=== PATIENT | male | born 1945 | race Caucasian/White ===

== ENCOUNTER → 2018-04-11 11:28 | Outpatient (CLI) | payer MEDICARE, OTHER, SELFPAY ==
--- NOTE | 2018-04-11 11:30 | DI.RAD.S_ITS ---
PROCEDURE: XR CHEST 2V INDICATIONS: Chest wall pain TECHNIQUE: 2 views of the chest were acquired. COMPARISON: [facility], , XR CHEST 2V, 12/01/2017, 16:19. [facility], , CHEST 2 VIEW, 12/27/2016, 8:42. [facility], CR, CHEST 2 VIEW, 12/15/2015, 10:49. FINDINGS: Surgical changes and devices: None. Lungs and pleura: No pleural effusions or pneumothorax. Lungs are clear. Mediastinum: Mediastinal contours are normal. Heart size is normal. The descending thoracic aorta is torturous but does not appear aneurysmal Bones and chest wall: No suspicious bony abnormalities. Soft tissues appear unremarkable. IMPRESSION: Chronic mild interstitial prominence within the lung parenchyma, no source of chest wall pain is found. Dictated by: Johan Crotes M.D. on 04/11/2018 at 12:13 Approved by: Johan Cortes M.D. on 04/11/2018 at 12:13
== END ==
PROVIDERS: Visit Provider Internal Medicine
DX: R07.89 Other chest pain (principal)
CPT/HCPCS: 71046

== ENCOUNTER → 2018-04-17 12:37 | Outpatient (CLI) | payer MEDICARE, OTHER, SELFPAY ==
--- NOTE | 2018-04-17 | DI.US.S_ITS ---
PROCEDURE: US ABDOMEN COMPLETE INDICATIONS: KIDNEY CANCER TECHNIQUE: Real-time scanning was performed of the abdominal and retroperitoneal organs, with image documentation. COMPARISON: [facility], CT, IVP (ABD & PEL WWO CONTRAST), 03/16/2017, 12:29. [facility], US, ABDOMEN COMPLETE, 12/27/2016, 9:02. FINDINGS: Liver: Liver is normal in size and homogeneous in echotexture. 2 cysts present within the left lobe of the liver unchanged largest measuring 2.8 cm. Smaller right hepatic lobe clusters is present measuring 1.4 cm. Gallbladder: No gallstones identified. Normal gallbladder wall. No pericholecystic fluid. Negative sonographic Quick sign. Biliary ducts: Intrahepatic bile ducts are non-dilated. Extrahepatic bile duct not well-seen. Pancreas: Visualized portions of the pancreas are sonographically normal. Hypoechoic mass in the pancreatic head measuring 12 mm. Doppler assessment demonstrates no vascularity. Spleen: Spleen is normal in size and homogeneous in echotexture. Kidneys: Right kidney surgically absent. Normal left kidney measuring 12.3 cm. Aorta: Visualized aorta is normal in caliber at less than 3 cm. Iliacs: Proximal common iliac arteries are normal in caliber at less than 2.5 cm. IVC: Intrahepatic inferior vena cava is patent. Miscellaneous: No free abdominal fluid. IMPRESSION: 1. Hepatic cysts redemonstrated. 2. Hypoechoic rounded focus involving the head of the pancreas which may represent a small cyst but is too small to further characterize. Recommend pancreatic protocol CT for further assessment and characterization. Dictated by: Edmundo CISNEROS Interpreted: John Michelle MD on 04/17/2018 at 16:14 Approved by: John Michelle M.D. on 04/17/2018 at 17:28
[2018-04-17 13:30] LABS: Add Manual Diff / Slide Review NO; Hematocrit 46.5 % (41-53); Hemoglobin 15.4 g/dL (13.5-17.5); Lymphocytes Percent Auto 22.6 % (25-40); Mean Corpuscular HGB Conc 33.2 % (30-36); Mean Corpuscular Hemoglobin 30.5 PG (26-34); Mean Corpuscular Volume 92.1 fL (80-100); Monocytes Percent Auto 8.8 % (3-14); Neutrophils Absolute Auto 3000 /uL (3000-5900); Neutrophils Percent Auto 63.6 % (50-75); Platelet Count 102 X10^3/uL (150-400); Red Blood Cell Count 5.05 X10^6/uL (4.5-5.9); Red Cell Distribution Width 13.6 % (11.6-14.8); White Blood Cell Count 4.7 X10^3/uL (4.5-11.0)
[2018-04-17 14:03] LABS: Alanine Aminotransferase 64 IU/L (21-72); Albumin 3.8 g/dL (3.5-5.0); Albumin Globulin Ratio 1.4 (1.0-2.8); Alkaline Phosphatase 74 U/L (38-126); Aspartate Aminotransferase 41 IU/L (17-59); BUN Creatinine Ratio 13.3 (6-22); Blood Urea Nitrogen 20 mg/dL (9-20); Calcium 9.2 mg/dL (8.4-10.2); Carbon Dioxide 31 mmol/L (22-32); Chloride 105 mmol/L (98-107); Estimated Glomerular Filt Rate 46.3 mL/min (>60); Globulin 2.7 g/dL (1.7-4.1); Glucose 89 mg/dL (80-110); HEMOLYSIS 16 (0-50); Sodium 143 mmol/L (137-145); Total Protein 6.5 g/dL (6.3-8.2)
== END ==
PROVIDERS: PCP Family Medicine; Visit Provider Urology
DX: C64.9 Malignant neoplasm of unspecified kidney, except renal pelvis (principal); K76.89 Other specified diseases of liver
CPT/HCPCS: 36415; 76700; 80053; 84153; 85025

== ENCOUNTER → 2018-05-05 08:46 | Outpatient (CLI) | payer MEDICARE, OTHER, SELFPAY ==
[2018-05-05 10:17] LABS: Blood Urea Nitrogen 24 mg/dL (9-20); Estimated Glomerular Filt Rate 42.9 mL/min (>60)
== END ==
PROVIDERS: PCP Internal Medicine; Visit Provider Internal Medicine
DX: Z01.812 Encounter for preprocedural laboratory examination (principal)
CPT/HCPCS: 36415; 82565; 84520

== ENCOUNTER → 2018-05-09 09:10 | Outpatient (CLI) | payer MEDICARE, OTHER, SELFPAY ==
--- NOTE | 2018-05-09 09:25 | DI.CT.S_ITS ---
PROCEDURE: CT ABDOMEN WO/W CON INDICATIONS: pancreatic mass TECHNIQUE: Noncontrast 3 mm thick sections acquired through the pancreas. After the administration of intravenous contrast, 3 mm thick pancreatic-phase images acquired from the diaphragm to the iliac crests. 3 mm thick coronal and sagittal reformats were performed. For radiation dose reduction, the following was used: automated exposure control, adjustment of mA and/or kV according to patient size. COMPARISON: [facility], US, US ABDOMEN COMPLETE, 04/17/2018, 13:35. FINDINGS: Image quality: Excellent. Lung bases: Lung bases are clear. Heart size is normal. Pancreas: The pancreatic duct is not distended. At the pancreatic head there is an ovoid cystic structure which has maximal AP and transverse dimensions of 9 x 8 mm, with an internal radiodensity of 15 Hounsfield units (just above water radiodensity). The remainder of the pancreatic parenchyma appears normal. Other solid organs: Liver is normal in size and enhancement. Scattered water density hepatic cysts are seen. Gallbladder appears partially contracted. Biliary system is non dilated. Spleen is normal in size and enhancement. No adrenal nodules. Kidneys are normal in size and enhancement, without hydronephrosis. Peritoneum and bowel: Unenhanced bowel loops demonstrate normal wall thickness and caliber. No free fluid or air. Nodes and vessels: No retroperitoneal or mesenteric adenopathy by size criteria. Aorta and inferior vena cava are normal in size. Bones: No suspicious bony lesions. No vertebral body compression fractures. Miscellaneous: No ventral hernias. IMPRESSION: At the anterior margin of the pancreatic head near its anatomic junction with the pancreatic neck there is a ovoid 8 x 9 mm hypodensity that measures just above water in radiodensity. 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 It can be easily seen by ultrasound and therefore followed by ultrasound in 6 months, and at 12 month intervals thereafter to assist in establishing the presence or absence of stability of appearance over time. Dictated by: Johan Cortes M.D. on 05/09/2018 at 10:44 Approved by: Johan Cortes M.D. on 05/09/2018 at 11:05
== END ==
PROVIDERS: PCP Internal Medicine; Visit Provider Internal Medicine
DX: K86.9 Disease of pancreas, unspecified (principal)
CPT/HCPCS: 74170; Q9967

== ENCOUNTER → 2018-05-24 14:24 | Outpatient (CLI) | payer MEDICARE, OTHER, SELFPAY ==
[2018-05-24 16:00] LABS: Add Manual Diff / Slide Review NO; Basophils Percent Auto 1.4 % (0-2); Eosinophils Percent Auto 3.6 % (2-4); Hematocrit 45.3 % (41-53); Hemoglobin 15.1 g/dL (13.5-17.5); Lymphocytes Percent Auto 22.4 % (25-40); Mean Corpuscular HGB Conc 33.3 % (30-36); Mean Corpuscular Hemoglobin 30.4 PG (26-34); Mean Corpuscular Volume 91.3 fL (80-100); Monocytes Percent Auto 10.6 % (3-14); Neutrophils Absolute Auto 3100 /uL (3000-5900); Platelet Count 108 X10^3/uL (150-400); Red Blood Cell Count 4.96 X10^6/uL (4.5-5.9); Red Cell Distribution Width 13.3 % (11.6-14.8)
[2018-05-24 16:21] LABS: BUN Creatinine Ratio 18.6 (6-22); Blood Urea Nitrogen 26 mg/dL (9-20); Calcium 8.8 mg/dL (8.4-10.2); Carbon Dioxide 28 mmol/L (22-32); Chloride 105 mmol/L (98-107); Estimated Glomerular Filt Rate 50.1 mL/min (>60); Glucose 80 mg/dL (80-110); HEMOLYSIS < 15 (0-50); Potassium 4.1 mmol/L (3.4-5.1); Sodium 145 mmol/L (137-145)
[2018-05-24 16:52] LABS: Carcinoembryonic Antigen 2.2 ng/mL (0.1-3.0)
[2018-05-26 15:55] LABS: Cancer (Carbohydrate) Ag 19-9 26 U/mL (< 34)
== END ==
PROVIDERS: PCP Internal Medicine; Visit Provider Urology
DX: Z01.818 Encounter for other preprocedural examination (principal); D13.6 Benign neoplasm of pancreas
CPT/HCPCS: 36415; 80048; 82378; 85025; 86301; 93005

== ENCOUNTER → 2018-05-24 14:55 | Outpatient (CLI) | payer MEDICARE, OTHER, SELFPAY | PROVIDERS: PCP Internal Medicine; Visit Provider Internal Medicine | DX: Z01.818 Encounter for other preprocedural examination (principal) ==

== ENCOUNTER → 2018-08-29 07:15 | Outpatient (CLI) | payer MEDICARE, OTHER, SELFPAY ==
[2018-08-29 09:23] LABS: Alanine Aminotransferase 44 IU/L (21-72); Albumin Globulin Ratio 1.4 (1.0-2.8); Alkaline Phosphatase 69 U/L (38-126); Aspartate Aminotransferase 29 IU/L (17-59); BUN Creatinine Ratio 14.7 (6-22); Bilirubin Total 1.2 mg/dL (0.2-1.3); Blood Urea Nitrogen 25 mg/dL (9-20); Calcium 9.3 mg/dL (8.4-10.2); Carbon Dioxide 30 mmol/L (22-32); Chloride 103 mmol/L (98-107); Cholesterol 191 mg/dL (140-199); Estimated Glomerular Filt Rate 39.9 mL/min (>60); Globulin 2.8 g/dL (1.7-4.1); Glucose 84 mg/dL (80-110); HDL Cholesterol 59 mg/dL (40-60); HEMOLYSIS < 15 (0-50); LDL Cholesterol Calculated 121 mg/dL (<100); Potassium 4.6 mmol/L (3.4-5.1); Sodium 140 mmol/L (137-145); Total Protein 6.8 g/dL (6.3-8.2); Triglycerides 55 mg/dL (35-150)
[2018-08-31 20:30] LABS: Cancer (Carbohydrate) Ag 19-9 43 U/mL (< 34)
== END ==
PROVIDERS: PCP Internal Medicine; Visit Provider Internal Medicine
DX: C64.9 Malignant neoplasm of unspecified kidney, except renal pelvis (principal); D13.6 Benign neoplasm of pancreas; G47.33 Obstructive sleep apnea (adult) (pediatric); I10 Essential (primary) hypertension; R97.20 Elevated prostate specific antigen [PSA]
CPT/HCPCS: 36415; 80053; 80061; 84153; 86301

== ENCOUNTER → 2018-09-20 08:44 | Outpatient (CLI) | payer MEDICARE, OTHER, SELFPAY ==
--- NOTE | 2018-09-20 08:46 | DI.US.S_ITS ---
PROCEDURE: US ABDOMEN COMPLETE INDICATIONS: papillary mucinous adenoma TECHNIQUE: Real-time scanning was performed of the abdominal and retroperitoneal organs, with image documentation. COMPARISON: [facility], CT, CT ABDOMEN WO/W CON, 05/09/2018, 9:32. [facility], US, US ABDOMEN COMPLETE, 04/17/2018, 13:35. FINDINGS: Liver: The liver is normal in size. There are multiple cystic foci identified within the left and right lobe. The anterosuperior left lobe focus measures 14 x 11 x 14 mm compared to 13 x 9 x 16 mm. Left inferior lobe focus measures 27 x 20 x 21 mm compared to 23 x 20 x 28 mm. The right anterior lobe focus measures 12 x 11 x 9 mm compared to 12 t by 14 mm. The right mid lobe focus measures 13 x 10 x 10 mm, not visualized on prior exam. Gallbladder: Gallbladder is unremarkable. Wall thickness is within normal limits measuring 2.0 cm. Biliary ducts: Intrahepatic bile ducts are non-dilated. Extrahepatic bile duct caliber measures 5.9 mm. Normal is 6-7 mm or less in diameter, or 10 mm or less post-cholecystectomy. Pancreas: Visualized portions of the pancreas demonstrate an unchanged cystic-appearing focus within the pancreatic head measuring 8 x 5 x 8 mm compared to 12 x 8 x 11 mm. Spleen: Spleen is normal in size and homogeneous in echotexture. Kidneys: Kidneys are normal in size and echotexture. Right kidney has been removed. The left kidney measures 11.9 cm long. No hydronephrosis or nephrolithiasis. No solid masses. Aorta: Visualized aorta is normal in caliber at less than 3 cm. Iliacs: Proximal common iliac arteries are normal in caliber at less than 2.5 cm. IVC: Intrahepatic inferior vena cava is patent. Miscellaneous: No free abdominal fluid. IMPRESSION: 1. Multiple cystic foci within the liver with the inferior left focus demonstrating minimal interval increase in size. In addition, a new right lobe focus is identified. These appear most suggestive of simple cysts. 2. Cystic focus within the pancreatic head minimally decreased in size compared to prior exam. Dictated by: Yajaira Lu M.D. on 09/20/2018 at 12:11 Approved by: Yajaira Lu M.D. on 09/20/2018 at 12:16
== END ==
PROVIDERS: PCP Internal Medicine; Visit Provider Internal Medicine
DX: D13.6 Benign neoplasm of pancreas (principal)
CPT/HCPCS: 76700

== ENCOUNTER → 2018-09-27 11:53 | Outpatient (CLI) | payer MEDICARE, OTHER, SELFPAY ==
[2018-09-27 12:44] LABS: Appearance Urine UA CLEAR; Bilirubin Urine UA NEGATIVE (NEGATIVE); Color Urine UA YELLOW; Glucose Urine UA NEGATIVE (Negative); Ketones Urine UA NEGATIVE (NEGATIVE); Leukocyte Esterase Urine UA 1+ (NEGATIVE); Nitrite Urine UA NEGATIVE (Negative); Occult Blood Urine UA 1+ (Negative); Protein Urine UA NEGATIVE (Negative); Urobilinogen Urine UA 0.2 E.U./dL (0.2)
[2018-09-27 13:03] LABS: RBC Urine 1-5/HPF (0-5/HPF)
[2018-09-27 13:04] LABS: Bacteria Urine Occasional (0-1); Culture Indicated Urine Specimen Cultured; Squamous Epithelial Cell Urine 0-1 /HPF; WBC Urine 10-30/HPF (0-5/HPF)
== END ==
PROVIDERS: Family Provider Internal Medicine; PCP Internal Medicine; Visit Provider Urology
DX: N39.0 Urinary tract infection, site not specified (principal)
CPT/HCPCS: 81001; 87086

== ENCOUNTER → 2019-02-02 16:11 | Outpatient (CLI) | payer MEDICARE, OTHER, SELFPAY ==
--- NOTE | 2019-02-02 16:14 | DI.US.S_ITS ---
PROCEDURE: US EXTREMELY NONVASC UPPER RT INDICATIONS: POSS FOREIGN BODY (WOOD) RIGHT MIDDLE FINGER TECHNIQUE: Real-time scanning was performed of the third digit pulse on the right and left with the left finger for comparison, with image documentation. COMPARISON: None. FINDINGS: There is soft tissue swelling right third digit distally over the distal phalanx, in an area of prior splinter injury beneath fingernail. The patient reports having removed most of the splinter but may have left a small fragment. Scanning over this area reveals a very small linear structure measuring approximately 1 mm in diameter and 3 mm in length marked on the imaging to assist in detection and reference to this site. This is virtually at the subcutaneous margin within the third digit soft tissues near the fourth digit. IMPRESSION: A definite foreign body is not seen, no fluid collection is found it would indicate abscess formation but there is any unexplained very small 1 x 3 mm focus of linear echotexture immediately below the skin surface at the third digit as discussed above. A similar structure was not seen at the left third digit which was scanned for normal comparison. Dictated by: Johan Cortes M.D. on 02/02/2019 at 16:56 Approved by: Johan Cortes M.D. on 02/02/2019 at 17:02
== END ==
PROVIDERS: PCP Internal Medicine; Visit Provider Nurse Practitioner Family
DX: M79.5 Residual foreign body in soft tissue (principal)
CPT/HCPCS: 76882

== ENCOUNTER → 2019-03-06 07:04 | Outpatient (CLI) | payer MEDICARE, OTHER, SELFPAY ==
[2019-03-06 07:49] LABS: Add Manual Diff / Slide Review NO; Basophils Absolute Auto 0 /uL (0-100); Basophils Percent Auto 1.1 % (0-2); Eosinophils Absolute Auto 200 /uL (0-450); Hematocrit 45.2 % (41-53); Hemoglobin 15.3 g/dL (13.5-17.5); Lymphocytes Absolute Auto 1200 /uL (1100-4500); Lymphocytes Percent Auto 26.3 % (25-40); Mean Corpuscular HGB Conc 33.9 % (30-36); Mean Corpuscular Hemoglobin 31.1 PG (26-34); Mean Corpuscular Volume 91.9 fL (80-100); Monocytes Absolute Auto 400 /uL (0-900); Monocytes Percent Auto 9.1 % (3-14); Neutrophils Absolute Auto 2600 /uL (1500-7000); Neutrophils Percent Auto 59.5 % (50-75); Platelet Count 107 X10^3/uL (150-400); Red Blood Cell Count 4.92 X10^6/uL (4.5-5.9); White Blood Cell Count 4.5 X10^3/uL (4.5-11.0)
[2019-03-06 08:09] LABS: HEMOLYSIS < 15 (0-50)
[2019-03-06 08:18] LABS: Alanine Aminotransferase 21 IU/L (21-72); Albumin 3.6 g/dL (3.5-5.0); Albumin Globulin Ratio 1.2 (1.0-2.8); Alkaline Phosphatase 70 U/L (38-126); Aspartate Aminotransferase 24 IU/L (17-59); BUN Creatinine Ratio 15.3 (6-22); Blood Urea Nitrogen 23 mg/dL (9-20); Carbon Dioxide 31 mmol/L (22-32); Chloride 105 mmol/L (98-107); Estimated Glomerular Filt Rate 46.1 mL/min (>60); Globulin 2.9 g/dL (1.7-4.1); Glucose 100 mg/dL (80-110); Potassium 4.3 mmol/L (3.4-5.1); Sodium 140 mmol/L (137-145); Total Protein 6.5 g/dL (6.3-8.2)
[2019-03-06 09:22] LABS: Prostate Specific Antigen 3.36 ng/mL (0.10-4.00)
== END ==
PROVIDERS: Family Provider Urology; PCP Internal Medicine; Visit Provider Internal Medicine
DX: N40.1 Benign prostatic hyperplasia with lower urinary tract symptoms (principal); C64.9 Malignant neoplasm of unspecified kidney, except renal pelvis; D13.6 Benign neoplasm of pancreas; G47.33 Obstructive sleep apnea (adult) (pediatric); I10 Essential (primary) hypertension
CPT/HCPCS: 36415; 80053; 84153; 85025

== ENCOUNTER → 2019-03-20 12:06 | Outpatient (CLI) | payer MEDICARE, OTHER, SELFPAY ==
--- NOTE | 2019-03-20 12:08 | DI.US.S_ITS ---
PROCEDURE: US ABDOMEN LIMITED INDICATIONS: PANCREATIC CYST TECHNIQUE: Real-time focused scanning was performed of the abdomen, with image documentation. COMPARISON: [facility], CT, CT ABDOMEN WO/W YARELY, 05/09/2018, 9:32. FINDINGS: Pancreatic head cyst unchanged measuring 0.9 x 0.8 x 0.9. Pancreas otherwise appears normal. IMPRESSION: Stable appearance of pancreatic head cyst. Dictated by: Edmundo CISNEROS Interpreted: Johan Cortes MD on 03/20/2019 at 13:21 Approved by: Johan Cortes M.D. on 03/20/2019 at 14:24
== END ==
PROVIDERS: Family Provider Urology; PCP Internal Medicine; Visit Provider Internal Medicine
DX: K86.2 Cyst of pancreas (principal); D13.6 Benign neoplasm of pancreas
CPT/HCPCS: 76705

== ENCOUNTER 2019-04-28 03:20 | Emergency (ER) | payer MEDICARE, OTHER, SELFPAY ==
[2019-04-28 03:25] VITALS: BP 145/89; PULSE 64; RESP 15; TEMP 36.9; O2SAT 99; BMI 25.5
--- NOTE | 2019-04-28 03:27 | ED.GENADULT ---
HPI - General Adult General Chief complaint: Skin/Abscess/Foreign Body Stated complaint: dog bite right hand swollen red was his dog Time Seen by Provider: 04/28/19 03:26 Source: patient Mode of arrival: Ambulatory Limitations: no limitations History of Present Illness HPI narrative: 73-year-old male who 2-3 days ago was bitten in his right hand by his dog. He states since that time he has had some redness the outside of his hand. Does not remember when his last tetanus shot was. He states that his dog was up-to-date on all of its immunizations. Related Data Home Medications Medication Instructions Recorded Confirmed tamsulosin 0.4 mg capsule 0.4 mg PO BID #0 cap 02/28/19 02/28/19 Previous Rx's Medication Instructions Recorded cephalexin 500 mg capsule 500 mg PO BID #10 cap 02/28/19 labetalol 100 mg tablet See Rx Instructions .ROUTE 04/02/19 .COMPLEX #90 tablet amoxicillin-pot clavulanate 1 tab PO BID 7 Days #14 tab 04/28/19 [Augmentin] Allergies Allergy/AdvReac Type Severity Reaction Status Date / Time adhesive Allergy Mild REDNESS, Verified 02/28/19 11:02 ITCHING No Known Drug Allergies Allergy Unknown Verified 02/28/19 11:02 [NO KNOWN DRUG ALLERGIES] Raw apples AdvReac Intermediate GI upset Uncoded 02/28/19 11:02 Review of Systems Constitutional Constitutional: Denies fever(s) Musculoskeletal Musculoskeletal: Denies tingling Comments: Pain in the right hand Integumentary/Breasts Comments: Redness and puncture wounds to the right hand Neurologic Neurologic: Denies tingling Hematologic/Lymphatic Hematologic/Lymphatic: Denies easy bleeding and Denies easy bruising [facility] Medical History Acne (Resolved 1961) Bladder cancer (Resolved 2016) Bladder cancer (Chronic) BPH (benign prostatic hyperplasia) (Chronic) Chicken pox (Resolved) Complete tear of left rotator cuff (Inactive 01/14/16) Essential hypertension (Chronic 07/23/15) Hayfever (Chronic 1963) History of adenomatous polyp of colon (Chronic) Kidney stones (Resolved 2010) Malignant neoplasm of kidney (Chronic 01/12/13) Measles (Resolved) Mumps (Resolved) Obstructive sleep apnea (Chronic 09/07/11) Stage 3 chronic kidney disease (Chronic 01/03/13) Thrombocytopenia (Chronic 07/23/15) Vertigo (Inactive) Social History marital status: number of children: 1 household members: spouse lives independently: Yes caregiver/support person: No housing: house pets and animals: Yes education level: master's degree 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 travel history: over 6 months ago ([place], [place]) 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), reading and other (Gardening, Walk dogs.) Smoking Status: Former smoker Tobacco: How many years used: 10 Smokeless tobacco user: other (Cigarettes) quit status: quit date established (1980) second hand exposure: No alcohol intake: current (Occasionally) substance use type: marijuana Exam Initial Vital Signs Initial Vital Signs: Vital Signs Temperature 98.4 F 04/28/19 03:25 Pulse Rate 64 04/28/19 03:25 Respiratory Rate 15 04/28/19 03:25 Blood Pressure 145/89 H 04/28/19 03:25 Pulse Oximetry 99 04/28/19 03:25 Const General: cooperative, healthy appearing, comfortable and well developed Cardio Pulses: radial pulses present on the right Skin Other: Patient with superficial wounds on the ulnar aspect volar just proximal to the wrist on the right hand. Patient with 2 wounds 1 on the palmar aspect of 1 on the dorsal aspect of the 5th digit. Patient with redness on the dorsum of the right hand ulnar side. Neuro Motor: muscle tone normal throughout Sensory Exam: no sensory deficits noted Extrem Other: Full range of motion of the right hand and all the joints in the 5th digit Psych Appearance: grossly normal and well kempt Course Orders Ordered: ED Orders 04/28/19 03:29 XR hand RT min 3V Stat Discontinued Medications Amoxicillin/Clavulanate Potassium (Augmentin 875-125 Mg) 1 tab PO NOW ONE Stop: 04/28/19 03:31 Last Admin: 04/28/19 03:57 Dose: 1 tab Documented by: MARIO Diphtheria/Tetanus/Acell Pertussis (Adacel) 0.5 ml IM .ONCE ONE Stop: 04/28/19 03:31 Last Admin: 04/28/19 03:57 Dose: 0.5 ml Documented by: MARIO Vital Signs Vital signs: Vital Signs - 8 hr 04/28/19 03:25 Temperature 98.4 F Pulse Rate 64 Respiratory Rate 15 Blood Pressure 145/89 H Pulse Oximetry 99 Medical Decision Making Imaging Data X-ray hand: My impression: No fractures or foreign body seen MDM Narrative Medical decision making narrative: Patient's tetanus was updated. Was given a 1st dose of antibiotics here in the emergency department. Will send home with a prescription for the remainder. Do not feel that he is admitted for IV antibiotics. Feel this is low risk for rabies. Patient given return precautions and follow-up instructions. He expressed understanding and agreement with plan. Discharge Plan Departure Patient Disposition: Home Clinical Impression: Dog bite Qualifiers: Encounter type: initial encounter Qualified Code(s): W54.0XXA - Bitten by dog, initial encounter Instructions: DI for Cellulitis -- Adult, Animal Bites Activity Restrictions/Additional Instructions: It does appear that there is a small infection in your right hand most likely from the bite. You were given your 1st dose of antibiotics here in the emergency department. Take the remainder as directed. Contact your primary provider for a follow-up. Return to the emergency department for any new or worsening symptoms Prescriptions: New amoxicillin-pot clavulanate [Augmentin] 875-125 mg tablet 1 tab PO BID 7 Days Qty: 14 RF: 0 No Action tamsulosin [Flomax] 0.4 mg capsule 0.4 mg PO BID Qty: 0 RF: 0 labetalol 100 mg tablet See Rx Instructions .ROUTE .COMPLEX Qty: 90 RF: 1 cephalexin 500 mg capsule 500 mg PO BID Qty: 10 RF: 0 Referrals: Adebayo Hand MD [Primary Care Provider] -
--- NOTE | 2019-04-28 03:29 | DI.RAD.S_ITS ---
PROCEDURE: XR HAND RT MIN 3V INDICATIONS: dog bite 5th finger, possible foreign body TECHNIQUE: 3 views of the hand(s) acquired. COMPARISON: [facility], [place], XR FINGER(S) RIGHT, 03/08/2019, 8:01. FINDINGS: Bones: No displaced fractures or dislocations are identified. Mild to moderate multifocal degenerative changes of hand are present. Soft tissues: No suspicious soft tissue calcifications. No unexpected radiopaque foreign bodies. IMPRESSION: 1. No displaced fractures. 2. No foreign bodies. Note: The preliminary ED physician interpretation and the final report are concordant. Dictated by: Andrew Molina M.D. on 04/28/2019 at 8:23 Approved by: Andrew Molina M.D. on 04/28/2019 at 8:24
[2019-04-28] MEDS: TET,DIPH,PERTUSS(ACELL),VAC/PF 0.5 ML SYRINGE IM (03:57)
[2019-04-28] MEDS: AMOXICILLIN/CLAV 875/125 MG 1 TAB PO (03:57)
[2019-04-28 04:30] VITALS: BP 136/83; PULSE 64; RESP 16; O2SAT 96
== END 2019-04-28 04:30 | disposition home or self-care (01) ==
PROVIDERS: Emergency Provider Emergency Medicine; Family Provider Urology; PCP Internal Medicine
DX: S61.451A Open bite of right hand, initial encounter (principal); W54.0XXA Bitten by dog, initial encounter; Z23 Encounter for immunization
CPT/HCPCS: 73130; 90471; 99282; 99283; 90715

== ENCOUNTER → 2019-08-15 07:37 | Outpatient (CLI) | payer MEDICARE, OTHER, SELFPAY ==
[2019-08-15 08:43] LABS: Add Manual Diff / Slide Review NO; Basophils Absolute Auto 100 /uL (0-100); Basophils Percent Auto 1.3 % (0-2); Eosinophils Absolute Auto 200 /uL (0-450); Eosinophils Percent Auto 4.2 % (2-4); Hematocrit 44.4 % (41-53); Hemoglobin 15.1 g/dL (13.5-17.5); Lymphocytes Absolute Auto 900 /uL (1100-4500); Lymphocytes Percent Auto 20.1 % (25-40); Mean Corpuscular Hemoglobin 30.8 PG (26-34); Mean Corpuscular Volume 90.8 fL (80-100); Monocytes Absolute Auto 400 /uL (0-900); Monocytes Percent Auto 9.9 % (3-14); Neutrophils Absolute Auto 2800 /uL (1500-7000); Neutrophils Percent Auto 64.5 % (50-75); Platelet Count 106 X10^3/uL (150-400); Red Blood Cell Count 4.89 X10^6/uL (4.5-5.9); Red Cell Distribution Width 13.4 % (11.6-14.8); White Blood Cell Count 4.3 X10^3/uL (4.5-11.0)
[2019-08-15 09:08] LABS: Alanine Aminotransferase 16 IU/L (<50); Albumin 3.7 g/dL (3.5-5.0); Albumin Globulin Ratio 1.2 (1.0-2.8); Alkaline Phosphatase 67 U/L (38-126); Aspartate Aminotransferase 23 IU/L (17-59); BUN Creatinine Ratio 14.7 (6-22); Bilirubin Total 0.9 mg/dL (0.2-1.3); Blood Urea Nitrogen 22 mg/dL (9-20); Carbon Dioxide 32 mmol/L (22-32); Chloride 105 mmol/L (98-107); Glucose 88 mg/dL (80-110); HEMOLYSIS < 15 (0-50); Potassium 4.5 mmol/L (3.4-5.1); Sodium 142 mmol/L (137-145); Total Protein 6.7 g/dL (6.3-8.2)
[2019-08-16 11:31] LABS: Cancer (Carbohydrate) Ag 19-9 37 U/mL (< 34)
== END ==
PROVIDERS: Family Provider Urology; PCP Internal Medicine; Visit Provider Internal Medicine
DX: C64.9 Malignant neoplasm of unspecified kidney, except renal pelvis (principal); D13.6 Benign neoplasm of pancreas; D69.6 Thrombocytopenia, unspecified; I10 Essential (primary) hypertension
CPT/HCPCS: 36415; 80053; 85025; 86301

== ENCOUNTER → 2019-08-17 13:10 | Outpatient (CLI) | payer MEDICARE, OTHER, SELFPAY ==
--- NOTE | 2019-08-17 13:11 | DI.US.S_ITS ---
PROCEDURE: US ABDOMEN COMPLETE INDICATIONS: INTRADUCTAL PAPILLARY MUCINOUS ADENOMA PANCREAS TECHNIQUE: Real-time scanning was performed of the abdominal and retroperitoneal organs, with image documentation. COMPARISON: [facility], CT, CT ABDOMEN WO/W CON, 05/09/2018, 9:32. [facility], US, US ABDOMEN COMPLETE, 04/17/2018, 13:35. [facility], US, US ABDOMEN COMPLETE, 09/20/2018, 9:05. FINDINGS: Liver: Multiple cystic lesions seen within the liver measuring up 1.8 x 1.3 1.6 cm and the left lobe, 2.7 x 2.7 x 2.6 cm and the left lobe, 1.3 x 1.5 x 1.3 cm in the right lobe. Additional smaller right similar-appearing cystic lesions. There are some scattered low level internal echoes. Gallbladder: Unremarkable. No sonographic Quick's sign Biliary ducts: Intrahepatic bile ducts are non-dilated. Extrahepatic bile duct caliber measures 6 mm. Normal is 6-7 mm or less in diameter, or 10 mm or less post-cholecystectomy. Pancreas: Within the body of the pancreas, there is a 9 x 7 x 10 mm cystic lesion. Sonographically this appears stable Spleen: Spleen is normal in size and homogeneous in echotexture. Kidneys: Status post right nephrectomy. Left kidney measures 12.0 cm in length. 4 mm echogenic focus in the inferior pole presumably nonobstructive calculus versus dystrophic calcification. Aorta: Visualized aorta is normal in caliber at less than 3 cm. proximal aorta are not well-visualized Iliacs: Proximal common iliac arteries are normal in caliber at less than 2.5 cm. IVC: Intrahepatic inferior vena cava is patent. Miscellaneous: No free abdominal fluid. IMPRESSION: Redemonstration of multiple presumed hepatic cysts. Nonspecific pancreatic cystic lesion, although grossly stable size sonographically Additional chronic and incidental findings as above. Dictated by: Aston Torre M.D. on 08/17/2019 at 17:09 Approved by: Aston Torre M.D. on 08/17/2019 at 17:14
== END ==
PROVIDERS: Family Provider Urology; PCP Internal Medicine; Visit Provider Internal Medicine
DX: D13.6 Benign neoplasm of pancreas (principal); K76.89 Other specified diseases of liver; Z90.5 Acquired absence of kidney
CPT/HCPCS: 76700

== ENCOUNTER → 2020-02-28 13:10 | Outpatient (CLI) | payer MEDICARE, OTHER, SELFPAY ==
[2020-02-28 14:40] LABS: Add Manual Diff / Slide Review NO; Basophils Absolute Auto 100 /uL (0-100); Basophils Percent Auto 1.3 % (0-2); Eosinophils Absolute Auto 200 /uL (0-450); Hematocrit 44.5 % (41-53); Hemoglobin 14.6 g/dL (13.5-17.5); Lymphocytes Absolute Auto 1200 /uL (1100-4500); Lymphocytes Percent Auto 21.3 % (25-40); Mean Corpuscular HGB Conc 32.8 % (30-36); Mean Corpuscular Hemoglobin 30.4 PG (26-34); Mean Corpuscular Volume 92.5 fL (80-100); Monocytes Absolute Auto 500 /uL (0-900); Monocytes Percent Auto 8.3 % (3-14); Neutrophils Absolute Auto 3500 /uL (1500-7000); Neutrophils Percent Auto 65.1 % (50-75); Platelet Count 119 X10^3/uL (150-400); Red Blood Cell Count 4.81 X10^6/uL (4.5-5.9); Red Cell Distribution Width 13.5 % (11.6-14.8); White Blood Cell Count 5.4 X10^3/uL (4.5-11.0)
[2020-02-28 15:10] LABS: BUN Creatinine Ratio 14.8 (6-22); Blood Urea Nitrogen 22 mg/dL (9-20); Calcium 9.4 mg/dL (8.4-10.2); Carbon Dioxide 29 mmol/L (22-32); Chloride 105 mmol/L (98-107); Estimated Glomerular Filt Rate 46.4 mL/min (>60); Glucose 85 mg/dL (80-110); HEMOLYSIS < 15 (0-50); Potassium 4.8 mmol/L (3.4-5.1); Sodium 139 mmol/L (137-145)
[2020-02-29 06:36] LABS: Cancer (Carbohydrate) Ag 19-9 36 U/mL (0-35)
== END ==
PROVIDERS: Family Provider Urology; PCP Internal Medicine; Referring Provider Internal Medicine; Visit Provider Internal Medicine
DX: D69.6 Thrombocytopenia, unspecified (principal); D13.6 Benign neoplasm of pancreas; I10 Essential (primary) hypertension
CPT/HCPCS: 36415; 80048; 85025; 86301

== ENCOUNTER → 2020-08-30 10:28 | Outpatient (CLI) | payer MEDICARE, OTHER, SELFPAY ==
[2020-08-30 11:59] LABS: COVID19 -Nasal RAPID Negative (Negative)
== END ==
PROVIDERS: Family Provider Urology; PCP Internal Medicine; Visit Provider Nurse Practitioner
DX: Z01.812 Encounter for preprocedural laboratory examination (principal); Z20.822 Contact with and (suspected) exposure to COVID-19
CPT/HCPCS: 87635; C9803

== ENCOUNTER 2020-09-01 06:42 | Day surgery (SDC) | payer MEDICARE, OTHER, SELFPAY ==
[2020-09-01 07:07] VITALS: BP 124/82; PULSE 67; RESP 13; TEMP 37.1; O2SAT 98; BMI 25.7
--- NOTE | 2020-09-01 07:47 | PM.HP.1 ---
History of Present Illness History of Present Illness Date Patient Seen: 09/01/20 Time Patient Seen: 07:48 Chief complaint: SDC Narrative: The patient presents for colorectal sreening. If had previous 2016 significant for benign polyps. No personal or family history of colon cancer. On further history denies any recent gastrointestinal symptoms. No nausea, vomiting, abdominal pain, loss of appetite, unexplained weight loss, change in bowel habits, diarrhea, constipation, melena, hematochezia, or bright red blood per rectum. Patient History Medical History Acne (1961) Bladder cancer (2016) Bladder cancer BPH (benign prostatic hyperplasia) Chicken pox Complete tear of left rotator cuff (01/14/16) Essential hypertension (07/23/15) Hayfever (1963) History of adenomatous polyp of colon Kidney stones (2010) Malignant neoplasm of kidney (01/12/13) Measles Mumps Obstructive sleep apnea (09/07/11) Stage 3 chronic kidney disease (01/03/13) Thrombocytopenia (07/23/15) Vertigo Surgical History Anesthesia History of nephrectomy (12/2012) Status post rotator cuff repair (2003) Status post rotator cuff repair (2012) Family & Social History Family History Father No problems noted. Mother No problems noted. Sister No problems noted. Other Hypertension Social History: household members spouse lives independently Yes caregiver/support person No Tobacco & Substance use: Smoking Status Former smoker alcohol intake current alcohol intake frequency a few times a week Substance Use Type marijuana Meds Home Medications and Allergies Home Medications Medication Instructions Recorded Confirmed Type tamsulosin 0.4 mg capsule 0.4 mg PO BID #0 cap 02/28/19 08/24/19 History labetalol 100 mg tablet See Rx Instructions .ROUTE 10/04/19 09/01/20 Rx .COMPLEX #90 tablet Allergies Allergy/AdvReac Type Severity Reaction Status Date / Time adhesive Allergy Mild REDNESS, Verified 08/24/19 08:48 ITCHING No Known Drug Allergies Allergy Unknown Verified 08/24/19 08:48 [NO KNOWN DRUG ALLERGIES] Raw apples AdvReac Intermediate GI upset Uncoded 08/24/19 08:48 Review of Systems Review of Systems ROS: Yes All systems reviewed with the patient and are negative except as otherwise documented Exam Vital Signs (past 8 hours): - 09/01/20 07:07 Temperature 98.7 F Pulse Rate 67 Respiratory Rate 13 Blood Pressure 124/82 Pulse Oximetry 98 Oxygen Delivery Method Room Air Oxygen Flow Rate 0 Narrative Exam Narrative: General-no acute distress, well nourished adult male HEENT-moist mucous membranes, no scleral icterus Neck-supple, no lymphadenopathy Chest- non labored respirations, clear to auscultation bilaterally Cardiac-regular rate no peripheral edema Abdomen-soft, nontender, non distended Extremities-warm, well perfused Neurological-alert and oriented, no focal deficits Assessment & Plan Assessment & Plan narrative: The patient requires colorectal screening and colonoscopy is recommended. Technical details were discussed. Risks, benefits, alternatives explained. Risks including but not limited to myocardial infarction, aspiration, bleeding, pain, missed lesion, incomplete examination, need for further radiographic studies, colonic perforation, and need for major abdominal surgery were discussed. All questions were answered to their satisfaction, and they are in agreement with this plan.
[2020-09-01] MEDS: MIDAZOLAM 5 MG/5 ML VIAL IV (08:00)
[2020-09-01] MEDS: fentaNYL 250 MCG/5 ML INJ IV (08:01)
--- NOTE | 2020-09-01 08:16 | PM.OP.ENDO ---
Operative Date/Time/Diagnoses Date of procedure: 09/01/20 Time of procedure: 08:17 Pre-op diagnosis: Personal history of colonic polyps Post-op diagnosis: same Procedure & Clinicians Study performed: Colonoscopy Same procedure as scheduled: Yes Indications: 75-year-old man last colonoscopy 5 years ago had benign polyps removed. Surgeon: Alex Ching Procedure Notes Procedure in detail: Medications: Conscious sedation using 4 mg IV midazolam and 100 mcg IV of fentanyl The history and physical was performed/updated and the patient is ASA class is 2. The procedure was discussed in detail with the patient. Potential risks complications including infection, bleeding, missed diagnosis, perforation, need for surgery, and were explained. Their questions were answered and informed consent was obtained. Patient was brought to the procedure room and placed standard monitoring equipment. The patient's vital signs were monitored continuously throughout the entire procedure. Prior to starting time-out was performed. The patient was placed in the left lateral recumbent position. Procedural sedation was administered. Examination began with a thorough inspection of the perianal area there was no evidence of fissures, fistulae, external hemorrhoids or cutaneous malignancy. The colonoscopy scope was then placed into the anal canal and was advanced to the cecum, which was identified by the ileocecal valve, the appendiceal orifice and the confluence of the taenia. The scope was then slowly withdrawn examining colon thoroughly in all directions, irrigating it of any residual stool. No masses or polyps Sigmoid diverticulosis Grade 1 internal hemorrhoids The patient tolerated the procedure well. They will be discharged once criteria are met. The prep was of fair quality. The withdrawl time was 6 minutes. The sedation time was 20 minutes. Specimen(s): none sent Complications: none Impression: Normal colonoscopy Post-procedure Recommendations: Colonscopy in 10 years Disposition: same day surgery
[2020-09-01 08:20] VITALS: BP 116/87; PULSE 78; RESP 14; TEMP 36.4; O2SAT 98
--- NOTE | 2020-09-01 08:20 | SUR.OPER ---
Tolerated procedure well
[2020-09-01 08:25] VITALS: BP 116/87; PULSE 57; RESP 13; O2SAT 98
[2020-09-01 08:30] VITALS: BP 119/77; PULSE 65; RESP 14; TEMP 36.4; O2SAT 99
== END 2020-09-01 08:42 | disposition home or self-care (01) ==
PROVIDERS: Family Provider Urology; PCP Internal Medicine; Referring Provider Surgery; Visit Provider Surgery
PROC: 0DJD8ZZ Inspection of Lower Intestinal Tract, Via Natural or Artificial Opening Endoscopic (ICD-10-PCS; CPT 45378; principal; 2020-09-01 07:45)
DX: Z12.11 Encounter for screening for malignant neoplasm of colon (principal); Z86.010 Personal history of colon polyps; I10 Essential (primary) hypertension; K57.30 Diverticulosis of large intestine without perforation or abscess without bleeding; K64.0 First degree hemorrhoids
CPT/HCPCS: G0105; 99152; J2250; J3010

== ENCOUNTER → 2020-09-09 13:58 | Outpatient (CLI) | payer MEDICARE, OTHER, SELFPAY ==
--- NOTE | 2020-09-09 14:05 | DI.CT.S_ITS ---
PROCEDURE: CT KIDNEY URETER BLADDER (KUB) INDICATIONS: MALIGNANT NEOPLASM OF BLADDER, UNSPECIFIED TECHNIQUE: Noncontrast 5 mm thick sections acquired from the diaphragms to the symphysis. 5 mm thick coronal and sagittal reformats were then performed. For radiation dose reduction, the following was used: automated exposure control, adjustment of mA and/or kV according to patient size. COMPARISON: [facility], CT, IVP (ABD & PEL WWO CONTRAST), 03/16/2017, 12:29. [facility], CT, KIDNEY/ URETER/BLADDER, 07/25/2011, 14:46. FINDINGS: Image quality: Excellent. Lung bases: Lung bases are clear. Heart size is normal. Urinary system: Right kidney: Surgically absent. Right ureter: Proximally, it is dilated, and fluid filled. In the pelvis, at the level of L5-S1 and S1, it is filled with higher density, possibly representing a ureteral mass or debris. It then narrows to a more normal caliber and normal appearance at the level of the distal ureter. Left kidney: No stone or hydronephrosis. Left ureter: Unremarkable. Bladder: No bladder stones. No bladder wall thickening. No focal filling defects identified. Prostate is enlarged. Other solid organs: Liver is normal in size. Benign liver cysts again noted. Gallbladder contains a probable tiny calcified stone. Pancreas is normal in contours. Spleen is normal in size. No adrenal nodules. Peritoneum and bowel: Unenhanced bowel loops demonstrate normal wall thickness and caliber. No free fluid or air. Nodes and vessels: No retroperitoneal or mesenteric adenopathy by size criteria. Aorta and inferior vena cava are normal in caliber. Abdominal wall: No ventral hernias. Pelvis: No free pelvic fluid. No inguinal hernias or adenopathy. Bones: No suspicious bony lesions. No vertebral body compression fractures. IMPRESSION: 1. Remote right nephrectomy. 2. No bladder masses identified on this CT KUB. 3. The right ureter remains present. There is a question of aim mass filling the ureter at the level of L5-S1 and S1. 4. Cholelithiasis. Comment: Findings were discussed with Dr. Mayo via Secure Chat at the time of study dictation on 09/09/2020 at 1600 hours. Dictated by: Jd Dave M.D. on 09/09/2020 at 15:27 Approved by: Jd Dave M.D. on 09/09/2020 at 16:03
[2020-09-09 14:48] LABS: Add Manual Diff / Slide Review NO; Basophils Absolute Auto 100 /uL (0-100); Basophils Percent Auto 1.4 % (0-2); Eosinophils Absolute Auto 200 /uL (0-450); Eosinophils Percent Auto 3.1 % (2-4); Hematocrit 45.6 % (41-53); Lymphocytes Absolute Auto 1200 /uL (1100-4500); Lymphocytes Percent Auto 19.9 % (25-40); Mean Corpuscular Hemoglobin 30.2 PG (26-34); Mean Corpuscular Volume 91.6 fL (80-100); Monocytes Absolute Auto 500 /uL (0-900); Neutrophils Absolute Auto 3900 /uL (1500-7000); Neutrophils Percent Auto 66.6 % (50-75); Platelet Count 129 X10^3/uL (150-400); Red Blood Cell Count 4.98 X10^6/uL (4.5-5.9); Red Cell Distribution Width 13.4 % (11.6-14.8); White Blood Cell Count 5.9 X10^3/uL (4.5-11.0)
[2020-09-09 15:02] LABS: BUN Creatinine Ratio 13.1 (6-22); Blood Urea Nitrogen 20 mg/dL (9-20); Calcium 8.9 mg/dL (8.4-10.2); Carbon Dioxide 33 mmol/L (22-32); Chloride 104 mmol/L (98-107); Estimated Glomerular Filt Rate 44.8 mL/min (>60); Glucose 118 mg/dL (80-110); HEMOLYSIS < 15 (0-50); Potassium 4.3 mmol/L (3.4-5.1); Sodium 139 mmol/L (137-145)
[2020-09-10 08:09] LABS: Cancer (Carbohydrate) Ag 19-9 32 U/mL (0-35)
== END ==
PROVIDERS: Family Provider Urology; PCP Internal Medicine; Referring Provider Urology; Visit Provider Urology
DX: C67.9 Malignant neoplasm of bladder, unspecified (principal); C64.9 Malignant neoplasm of unspecified kidney, except renal pelvis; D13.6 Benign neoplasm of pancreas; D69.6 Thrombocytopenia, unspecified; K80.20 Calculus of gallbladder without cholecystitis without obstruction; I10 Essential (primary) hypertension; Z90.5 Acquired absence of kidney
CPT/HCPCS: 36415; 74176; 80048; 85025; 86301

== ENCOUNTER 2020-10-16 13:45 | Outpatient (RCR) | payer MEDICARE, OTHER, SELFPAY ==
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
--- NOTE | 2020-09-15 16:39 | PT.OPPOC ---
Physical, Occupational & Speech Therapy At [facility] Current Diagnoses Pain in right knee (09/15/20) Other abnormalities of gait and mobility (09/15/20) Abnormal posture (09/15/20) Weakness (09/15/20) Visit Care Team Role Provider Type Adebayo Hand MD Attending Provider Physician Primary Care Provider Referring Provider Specialty: Internal Medicine Address: [address] [place] [address], [facility] [address], [address] Email: [email or web address] Plan Of Care PT-OP-T Assessment and Plan Start: 09/15/20 07:22 Freq: Status: Active Protocol: Document 09/15/20 09:48 [facility] (Rec: 09/15/20 10:32 [facility] [id number]) Physical Therapy Assessment Rehab Potential Rehabilitation Potential Good Evaluation Complexity Number of Personal Factors/Comorbidities 3 or More Number of Body Systems Impaired 3 Clinical Presentation at Evaluation Stable Impairments Impairments Functional Activities, Functional Mobility,Gait,Pain, Posture,ROM,Soft Tissue Mobility,Strength,Transfers Goals gait Short Term Goal (STG) Pt will be able to do SLS B for 6 sec w/o lat shearing. STG Duration 10/13/20 Intermediate Goal (LTG) pt will show improved gait mechanics w/ improved push off . LTG Duration 11/13/20 activities Short Term Goal (STG) Pt will be able to walk without having pain for first steps. STG Duration 10/13/20 Intermediate Goal (LTG) Pt will be able to do sit to stand without inc pain. LTG Duration 11/13/20 strength Short Term Goal (STG) Pt will be indep w/HEP STG Duration 10/13/20 [place] Goal (LTG) Pt will score at least 5/5 on all LE strength and 3/5 on LPM to show improved stability so dec pain w/up/down LTG Duration 11/13/20 Assessment Summary Assessment Pt presents w/R knee pain that started about 3 weeks ago and has been slowly getting better recently. He has had R knee pain in the past, but it typically comes and goes for a day occ and doesn't really bother him enough to do anything about. Reprots LBP and intermittant R hip pain also. He has fwd flexed posture, dec push off w/gait, dec SL stability and dec ability with transfers and first steps d/t pain. He would benefit from skilled PT to work on these deficits to return to his typical daily activities without inc pain. Physical Therapy Plan Frequency and Duration Frequency of Treatment 1-2x/week Duration of Treatment 2 months Plan of Care Start Date 09/15/20 Plan of Care End Date 11/13/20 Therapeutic Interventions Therapeutic Interventions Aquatic Therapy,Balance Training,Gait Training,Home Exercise Program,Joint Mobilizations,Manual Therapy, Patient/Caregiver Education, Self-Care/Home Management,Soft Tissue Mobilization,Taping, Therapeutic Activities, Therapeutic Exercises Modalities Cold Pack/Ice Massage,Electric Stimulation,Hot Packs, Infrared Therapy,Ultrasound Next Visit Focus/Plan Next Note Type Treatment Note Next Visit Plan review HEP, work on hip abd strength, balance w/o lat shear, step ups, STM to HS & ITB, hip flexibility Plan of Care Dates Plan of Care Start Date 09/15/20 Plan of Care End Date 11/13/20 Electronically Signed by: Tiffanie Grover, PT 09/15/20 [id number] Please Sign and Return: I have reviewed this Plan of Care and certify that the skilled therapy services above are required to meet the patient?s needs. Physician Signature Date Printed Name and Credentials Clinical Instructor Signature Printed Name and Credentials
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
== END 2020-10-17 08:35 | disposition home or self-care (01) ==
LOC: PHYS 13:45
PROVIDERS: PCP Internal Medicine; Referring Provider Internal Medicine; Visit Provider Internal Medicine
DX: M25.561 Pain in right knee (principal); R53.1 Weakness; R29.3 Abnormal posture; R26.89 Other abnormalities of gait and mobility
CPT/HCPCS: 97110; 97112; 97140; 97161; 97535

== ENCOUNTER → 2021-01-08 12:51 | Outpatient (CLI) | payer MEDICARE, OTHER, SELFPAY ==
[2021-01-08 13:04] LABS: Appearance Urine UA CLEAR; Bilirubin Urine UA NEGATIVE (NEGATIVE); Color Urine UA YELLOW; Glucose Urine UA NEGATIVE (Negative); Ketones Urine UA TRACE (NEGATIVE); Leukocyte Esterase Urine UA TRACE (NEGATIVE); Nitrite Urine UA NEGATIVE (Negative); Occult Blood Urine UA 2+ (Negative); Protein Urine UA 1+ (Negative); Specific Gravity Urine UA 1.025 (1.000-1.035); Urobilinogen Urine UA 0.2 E.U./dL (0.2)
[2021-01-08 13:21] LABS: Bacteria Urine Few (2-10); Culture Indicated Urine Specimen Cultured; RBC Urine 5-10/HPF (0-5/HPF); Squamous Epithelial Cell Urine 1-5 /HPF (0-5/HPF); WBC Urine 5-10/HPF (0-5/HPF)
== END ==
PROVIDERS: PCP Internal Medicine; Referring Provider Urology; Visit Provider Urology
DX: R93.41 Abnormal radiologic findings on diagnostic imaging of renal pelvis, ureter, or bladder (principal); N32.0 Bladder-neck obstruction
CPT/HCPCS: 36415; 81001; 87086

== ENCOUNTER → 2021-07-01 15:10 | Outpatient (CLI) | payer MEDICARE, OTHER, SELFPAY ==
--- NOTE | 2021-07-01 15:14 | DI.CT.S_ITS ---
PROCEDURE: CT KIDNEY URETER BLADDER (KUB) INDICATIONS: Personal history of malignant neoplasm of bladder TECHNIQUE: Axial sections were acquired from the lung bases to the pubic symphysis. Coronal and sagittal reformats were performed. For radiation dose reduction, the following was used: automated exposure control, adjustment of mA and/or kV according to patient size. COMPARISON: [facility], US, US ABDOMEN COMPLETE, 08/17/2019, 13:27. CT, CT ABDOMEN WO/W CON, 05/09/2018, 9:32. CT, IVP (ABD & PEL WWO CONTRAST), 03/16/2017, 12:29. [facility], CT, CT KIDNEY URETER BLADDER (KUB), 09/09/2020, 14:04. FINDINGS: Image quality: Excellent. Lung bases: Unremarkable. Heart: No significant findings. URINARY: Right Kidney: Surgically absent Right Ureter: Surgically absent Left Kidney: Normal size. No masses or stones. No hydronephrosis. Left Ureter: No hydroureter. Bladder: Mildly irregular. No bladder mass. No stones. ABDOMEN: Liver: Normal size. Low-density nodules in liver are most likely cysts. Gallbladder: There may be tiny gallstones. Biliary ducts: Unremarkable. Pancreas: Unremarkable. Spleen: Unremarkable. Adrenal Glands: Unremarkable. Stomach and Bowel: Stomach, small bowel loops, and colon are normal in caliber. There is a large amount of stool in colon. Colonic diverticulosis without diverticulitis. Peritoneum: No abnormal intraperitoneal fluid. No free air. Ventral Wall: No hernia. Abdominal Nodes: No enlarged retroperitoneal or mesenteric lymph nodes. Vessels: Aorta and inferior vena cava are normal in size. PELVIS: Pelvic Organs: Prostate is mildly enlarged. Pelvic Nodes: Unremarkable. Miscellaneous: Small left inguinal hernia. Bones: Levoscoliosis. Degenerative changes in lumbar spine. IMPRESSION: 1. Bladder is irregular. No CT findings to suggest recurrent bladder mass although the examination is suboptimal for tumor evaluation due to lack of intravenous contrast. 2. Enlarged prostate. 3. Right nephrectomy. 4. No lymphadenopathy in abdomen or pelvis. Dictated by: Chavez Oneill M.D. on 07/01/2021 at 16:35 Approved by: Chavez Oneill M.D. on 07/01/2021 at 16:46
== END ==
PROVIDERS: PCP Internal Medicine; Referring Provider Urology; Visit Provider Urology
DX: Z08 Encounter for follow-up examination after completed treatment for malignant neoplasm (principal); Z85.51 Personal history of malignant neoplasm of bladder; N40.0 Benign prostatic hyperplasia without lower urinary tract symptoms; Z90.5 Acquired absence of kidney
CPT/HCPCS: 74176

== ENCOUNTER → 2021-12-04 11:45 | Outpatient (CLI) | payer MEDICARE, OTHER, SELFPAY ==
[2021-12-04 13:34] LABS: Appearance Urine UA TURBID; Bilirubin Urine UA 2+ (NEGATIVE); Color Urine UA BROWN; Glucose Urine UA TRACE g/dL (Negative); Ketones Urine UA TRACE (NEGATIVE); Leukocyte Esterase Urine UA TRACE (NEGATIVE); Nitrite Urine UA POSITIVE (Negative); Occult Blood Urine UA 3+ (Negative); Protein Urine UA 3+ (Negative); pH Urine UA 6.5 (4.5-8.0)
[2021-12-04 13:44] LABS: Amorphous Sediment Urine 2+; Bacteria Urine Many (>30); Ictotest Urine Negative (Negative); RBC Urine >100/HPF (0-5/HPF); Squamous Epithelial Cell Urine 1-5 /HPF (0-5/HPF); WBC Urine 1-5/HPF (0-5/HPF)
== END ==
PROVIDERS: PCP Internal Medicine; Referring Provider Urology; Visit Provider Urology
DX: R31.0 Gross hematuria (principal); R30.0 Dysuria
CPT/HCPCS: 36415; 81001; 87086

== ENCOUNTER → 2022-01-21 07:04 | Outpatient (CLI) | payer MEDICARE, OTHER, SELFPAY ==
[2022-01-21 10:33] LABS: Add Manual Diff / Slide Review NO; Basophils Absolute Auto 100 /uL (0-100); Basophils Percent Auto 1.3 % (0-2); Eosinophils Absolute Auto 200 /uL (0-450); Eosinophils Percent Auto 4.9 % (2-4); Hematocrit 42.6 % (41-53); Hemoglobin 14.4 g/dL (13.5-17.5); Lymphocytes Absolute Auto 900 /uL (1100-4500); Lymphocytes Percent Auto 19.4 % (25-40); Mean Corpuscular HGB Conc 33.8 % (30-36); Mean Corpuscular Hemoglobin 30.6 PG (26-34); Mean Corpuscular Volume 90.5 fL (80-100); Monocytes Absolute Auto 400 /uL (0-900); Monocytes Percent Auto 7.8 % (3-14); Neutrophils Absolute Auto 3100 /uL (1500-7000); Neutrophils Percent Auto 66.6 % (50-75); Platelet Count 117 X10^3/uL (150-400); Red Blood Cell Count 4.71 X10^6/uL (4.5-5.9); Red Cell Distribution Width 13.5 % (11.6-14.8); White Blood Cell Count 4.7 X10^3/uL (4.5-11.0)
[2022-01-21 10:49] LABS: Blood Urea Nitrogen 15 mg/dL (9-20); Calcium 8.3 mg/dL (8.4-10.2); Carbon Dioxide 30 mmol/L (22-32); Chloride 106 mmol/L (98-107); Estimated Glomerular Filt Rate 49 mL/min (>60); Glucose 116 mg/dL (80-110); HEMOLYSIS < 15 (0-50); Potassium 3.9 mmol/L (3.4-5.1); Sodium 141 mmol/L (137-145)
[2022-01-22 05:12] LABS: Cancer (Carbohydrate) Ag 19-9 37 U/mL (0-35)
== END ==
PROVIDERS: PCP Internal Medicine; Referring Provider Internal Medicine; Visit Provider Internal Medicine
DX: D13.6 Benign neoplasm of pancreas (principal); I10 Essential (primary) hypertension
CPT/HCPCS: 36415; 80048; 85025; 86301

== ENCOUNTER 2022-05-10 08:34 | Emergency (ER) | payer MEDICARE, OTHER, SELFPAY ==
[2022-05-10] VITALS (9 sets, daily range): BP systolic 110–139; BP diastolic 65–76; PULSE 80–100; RESP 18; TEMP 36.4; O2SAT 98–100; BMI 25.5
--- NOTE | 2022-05-10 08:38 | ED_ITS ---
HPI - Extremity Problem General Chief complaint: Extremity Problem,Nontraumatic Stated complaint: rt leg swollen & painful moving into groin Time Seen by Provider: 05/10/22 08:36 Source: patient and old records reviewed Mode of arrival: Ambulatory Limitations: no limitations History of Present Illness HPI Narrative: This is a 76-year-old male with history of hypertension, stage III CKD with right nephrectomy from renal carcinoma and recurrent bladder cancer, patient notes that he is scheduled for right ureter to be removed for recurrence of bladder cancer. Patient states he is had some right back and lower leg pain with numbness tingling for the past 6 weeks in the last day noticed increasing swelling and then some redness yesterday of his right lower extremity which has continued to worsen overnight. Was seen in the walk-in clinic recommended get outpatient ultrasound but has not been able to obtain that yet. No fevers or chills. No chest pain, no shortness of breath, no nausea or vomiting. No d ysuria, urgency or frequency. He states he had a little bit of trouble with bowel movements yesterday and took a stool softener but has been stooling. Patient denies any numbness or tingling currently of his leg. He states that he watched a lot of TV yesterday but has not been immobile or had any recent surgery. Patient states he has been taking Tylenol as needed for pain which has been controlling his discomfort. No prior history of blood clots. Related Data Home Medications Medication Instructions Recorded Confirmed tamsulosin 0.4 mg capsule (Flomax) 0.4 mg PO BID #0 caps 02/28/19 05/09/22 melatonin 5 mg tablet 5 mg PO BEDTIME PRN 09/09/20 05/09/22 Previous Rx's Medication Instructions Recorded labetalol 100 mg tablet 100 mg PO DAILY #60 tabs 01/04/22 apixaban 5 mg (74 tabs) tablets in See Rx Instructions PO .COMPLEX 05/10/22 a dose pack (Eliquis DVT-PE Treat #74 ea 30D Start) Allergies Allergy/AdvReac Type Severity Reaction Status Date / Time adhesive Allergy Mild REDNESS, Verified 05/10/22 08:44 ITCHING No Known Drug Allergies Allergy Unknown Verified 05/10/22 08:44 [NO KNOWN DRUG ALLERGIES] Raw apples AdvReac Intermediate GI upset Uncoded 05/10/22 08:44 Review of Systems Review of Systems ROS Unobtainable: All systems reviewed & are unremarkable except as noted in HPI and below Patient History Medical History Acne (1962) Bladder cancer (2016) Bladder cancer BPH (benign prostatic hyperplasia) Chicken pox Complete tear of left rotator cuff (01/14/16) Essential hypertension (07/23/15) Hayfever (1963) History of adenomatous polyp of colon Kidney stones (2010) Malignant neoplasm of kidney (01/12/13) Measles Mumps Obstructive sleep apnea (09/07/11) Stage 3 chronic kidney disease (01/03/13) Thrombocytopenia Vertigo Surgical History Anesthesia History of nephrectomy (12/2012) Status post rotator cuff repair (2003) Status post rotator cuff repair (2012) Family History Father No problems noted. Mother No problems noted. Sister No problems noted. 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 HEENT: Head normocephalic, atraumatic, EOMI, pupils reactive, face symmetric, moist mucous membranes NECK: Supple, full range of motion CARDIOVASCULAR: Regular rate and rhythm without murmurs, rubs or gallops. No JVD. RESPIRATORY: Breath sounds equal bilaterally, no wheezes rales or rhonchi. No tachypnea or accessory muscle use. ABDOMEN: Soft, nontender. Normoactive bowel sounds all 4 quadrants. No guarding or rebound, rigidity, patient has abdominal fullness appreciated but no palpable mass. : No CVA tenderness EXTREMITIES: Normal range of motion, no clubbing. Positive for right lower extremity edema, right lower extremity having increasing conference and clamp paracentesis the left in general, patient has slight erythema, no pallor, palpable pulses dorsalis pedis bilaterally. Normal sensation throughout. Neurovascularly intact. + femoral pulse on right. NEUROLOGICAL: Cranial nerves II through XII grossly intact. Moving all extremities SKIN: Warm, dry, no petechiae, no rashes or lesions. Initial Vital Signs Initial Vital Signs: Vital Signs Temperature 97.6 F 05/10/22 08:41 Pulse Rate 100 H 05/10/22 08:41 Respiratory Rate 18 05/10/22 08:41 Blood Pressure 130/72 05/10/22 08:41 Pulse Oximetry 99 05/10/22 08:41 Oxygen Delivery Method 05/10/22 08:41 Course Orders Ordered: Discontinued Medications Acetaminophen (Acetaminophen 325 Mg Tablet) 975 mg PO NOW ONE Stop: 05/10/22 11:16 Last Admin: 05/10/22 11:23 Dose: 975 mg Documented By: IZZY Apixaban (Apixaban 5 Mg Tablet) 10 mg PO NOW ONE Stop: 05/10/22 11:13 Last Admin: 05/10/22 11:23 Dose: 10 mg Documented By: IZZY Vital Signs Vital signs: Vital Signs - 8 hr 05/10/22 11:30 05/10/22 11:30 Pulse Rate 83 Blood Pressure 127/73 Pulse Oximetry 99 MDM - Extremity (Nontraumatic) Lab Data Result diagrams: 05/10/22 08:55 05/10/22 08:55 Labs: Lab Results 05/10/22 05/10/22 05/10/22 Range/Units 08:55 08:55 08:55 WBC 10.5 (4.5-11.0) X10^3/uL RBC 4.11 L (4.5-5.9) X10^6/uL Hgb 12.1 L (13.5-17.5) g/dL Hct 36.4 L (41-53) % MCV 88.6 (80-100) fL MCH 29.5 (26-34) PG MCHC 33.3 (30-36) % RDW 13.0 (11.6-14.8) % Plt Count 196 (150-400) X10^3/uL Neut % (Auto) 77.2 H (50-75) % Lymph % (Auto) 7.2 L (25-40) % Canyon % (Auto) 10.4 (3-14) % Eos % (Auto) 4.7 H (2-4) % Baso % (Auto) 0.5 (0-2) % Neut # (Auto) 8100 H (3814-8028) /uL Lymph # (Auto) 800 L (4026-0668) /uL Canyon # (Auto) 1100 H (0-900) /uL Eos # (Auto) 500 H (0-450) /uL Baso # (Auto) 100 (0-100) /uL PT 14.3 H (10.1-12.7) SECONDS INR 1.2 (0.9-1.3) APTT 47 H (26-36) SECONDS Sodium 134 L (137-145) mmol/L Potassium 4.1 (3.4-5.1) mmol/L Chloride 100 (98-107) mmol/L Carbon Dioxide 27 (22-32) mmol/L BUN 20 (9-20) mg/dL Creatinine 1.40 H (0.66-1.25) mg/dL Estimated GFR 53 L (>60) mL/min BUN/Creatinine Ratio 14.3 (6-22) Glucose 123 H (80-110) mg/dL Calcium 8.6 (8.4-10.2) mg/dL Total Bilirubin 0.8 (0.2-1.3) mg/dL AST 17 (17-59) IU/L ALT 12 (<50) IU/L Alkaline Phosphatase 84 (38-126) U/L Total Protein 7.2 (6.3-8.2) g/dL Albumin 3.6 (3.5-5.0) g/dL Globulin 3.6 (1.7-4.1) g/dL Albumin/Globulin Ratio 1.0 (1.0-2.8) Lipase 55 (23-300) U/L Imaging Data CT scan - abdomen/pelvis: Radiologist's Impression: Close Aorta w/Runoff CTA (Signed) Wilmer Contreras - 05/10/22 Chest CTA (Signed) ContrerasWilmer hernandez - 05/10/22 Vascular Ultrasound (Signed) Amber Francois - 05/10/22 Launch?Image [address] [address] [address] Scan Report Signed Patient: Sachin Fraire MR#: [id number] : 1945 Acct:[id number] Age/Sex: 76 / M Date of Service: 05/10/22 Loc: ED Accession Number: [id number] ?? Procedure: CT angio abd aorta runoff Ordering Provider: Tena Machado D.O. PROCEDURE:? CT ANGIO ABD AORTA RUNOFF ? INDICATIONS:? clot right leg, abd pain ? TECHNIQUE:? After the administration of intravenous contrast, 2.5 mm sections acquired from T12 to the feet, with optional delayed image acquisition from the knees to the feet.? 3-dimensional maximum intensity projection (MIP) coronal and sagittal reformats, and/or 3-dimensional volume rendering reformatting was then performed.? For radiation dose reduction, the following was used:? automated exposure control.? ? COMPARISON:? [facility], CT, CT KIDNEY URETER BLADDER (KUB), 07/01/2021, 15:20.? [facility], MR, MR ABDOMEN PELVIS WITH/WITHOUT CONTRAST, 02/25/2022, 10:00. ? FINDINGS:? Image quality:? Excellent.? ? Extravascular tissues:? Same-day CT pulmonary angiogram dictated separately. ? Multiple liver cysts are present as before.? Gallbladder is unremarkable .? Biliary system is non dilated.? No dilation of the main pancreatic duct.? Similar small pancreatic cyst, described in the report for prior MRI.? Spleen is normal in size and enhancement.? No adrenal nodules. ? Prior right nephrectomy.? Redemonstrated dilated fluid-filled structure in the r ight retroperitoneum suspected to represent a ureteral remnant.? At the level of the upper pelvis, this terminates into a heterogeneous soft tissue mass as seen on prior MRI.? This measures 6.6 x 4.4 centimeters () previously 3.9 x 2.2 centimeters.? No left hydronephrosis. ? No bowel obstruction.? No free fluid or air.? Right pelvic mass may be contiguous with right external iliac chain adenopathy.? ? Bladder appears trabeculated. ? No suspicious bony lesions.? No vertebral body compression fractures.? ? Abdominal aorta:? No abdominal aortic aneurysm.? 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 ? Right lower extremity:? Above described right pelvic mass encases the right common iliac artery and proximal internal and external iliac arteries.? There is narrowing of the proximal right internal iliac artery at the mass, artery appears patent downstream to the mass. ? The right common femoral vein and external iliac vein could be involved by the right pelvic mass but are not well evaluated on this exam optimized for arterial evaluation. ? Right common femoral, femoral, popliteal artery, tibioperoneal trunk, anterior tibial artery, posterior tibial artery are patent.? Perennial artery is visualized from its origin to just above the ankle .? Just above the ankle, it is no longer visualized (for example -) ? Left lower extremity:? Left common femoral, femoral, popliteal artery, tibioperoneal trunk, anterior tibial artery, posterior tibial artery are patent.? Perennial artery is visualized from its origin to just above the ankle .? Just above the ankle, it is no longer visualized, similar to the right side. ? ? IMPRESSION:? 1. Intact 3 vessel runoff to the ankles bilaterally.? At the level of the ankles, the peroneal artery is no longer visualized bilaterally, suspect due to small caliber as the finding is present bilaterally.? Correlation with the patient's symptoms and area of ischemia may be helpful however as distal occlusion cannot be excluded. 2. 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 3. 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 This mass encases the right common iliac artery and proximal internal and external iliac arteries. 4. Right lower extremity appears enlarged compared to the left with soft tissue edema present.? Correlation for venous/outflow obstruction may be helpful.? Veins are not well evaluated on this exam optimized for arterial evaluation.? ? ? Dictated by: Wilmer Contreras M.D. on 05/10/2022 at 10:34 ? ? Approved by: Wilmer Contreras M.D. on 05/10/2022 at 11:04?? CT scan - chest: Radiologist's Impression: Close Chest CTA (Signed) Wilmer Contreras - 05/10/22 Aorta w/Runoff CTA (Signed) Wilmer Contreras - 05/10/22 Vascular Ultrasound (Signed) Amber Francois - 05/10/22 Abdomen/Pelvis CT (Signed) MaiAkhil - 07/01/21 Abdomen/Pelvis CT (Signed) Kyle Daveic - 09/09/20 Telemetry Strips 09/01/20 Abdomen Ultrasound (Signed) Aston Torre - 08/17/19 Hand X-Ray (Signed) Andrew Molina - 04/28/19 Abdomen Ultrasound (Signed) Johan Cortes - 03/20/19 Extremity Ultrasound (Signed) Johan Cortes - 02/02/19 Abdomen Ultrasound (Signed) Yajaira Lu - 09/20/[address] (Signed) Johan Cortes - 05/09/18 Abdomen Ultrasound (Signed) John Michelle - 04/17/18 Chest X-Ray (Signed) Johan Cortes - 04/11/18 Chest X-Ray (Signed) Bing Logan - 12/01/17 Launch?[place] [address] CT Scan Report Signed Patient: Sachin Fraire MR#: [id number] : 1945 Acct:[id number] Age/Sex: 76 / M Date of Service: 05/10/22 Loc: Accession Number: [id number] ?? Procedure: CT angio chest PE protocol Ordering Provider: Tena Machado D.O. PROCEDURE:? CT ANGIO CHEST PE PROTOCOL ? INDICATIONS:? clot right leg ? TECHNIQUE:? After the administration of intravenous contrast, 2 mm thick sections acquired from the pulmonary apices to the posterior costophrenic angles.? 3-dimensional maximum intensity projection (MIP) coronal and sagittal reformats were then acquired through the thorax.? For radiation dose reduction, the following was used:? automated exposure control, adjustment of mA and/or kV according to patient size.? ? COMPARISON:? [facility], CT, CT ANGIO ABD AORTA RUNOFF, 05/10/2022, 9:46. ? FINDINGS:? Image quality:? Excellent.? ? Pulmonary arteries:? Pulmonary arteries are normal in size, and demonstrate no intraluminal filling defects to suggest central pulmonary embolism.? ? Lungs and pleura:? No consolidation.? 3 millimeter right middle lobe pulmonary nodule (6/169).? No pleural effusions or pneumothorax.? ? Mediastinum:? Heart size is normal. trace pericardial effusion.? No mediastinal or hilar adenopathy.? Ectasia of the ascending thoracic aorta measuring 4.2 cm, measured at the level of the right pulmonary artery.? Esophagus is normal in caliber, without hiatal hernia.? ? Bones and chest wall:? No suspicious bony lesions.? Ribs and thoracic spine appear intact throughout.? No axillary or supraclavicular adenopathy.? ? Abdomen:? Dictated separately. ? IMPRESSION:? 1. No pulmonary embolism demonstrated. 2. Nonspecific 3 millimeter right middle lobe pulmonary nodule.? Follow-up can be obtained as clinically indicated. 3. Ectasia of the thoracic aorta.? ? ? Dictated by: Wilmer Contreras M.D. on 05/10/2022 at 10:19 ? ? Approved by: Wilmer Contreras M.D. on 05/10/2022 at 10:34?? MDM Narrative Medical decision making narrative: 76-year-old male with increasing right lower extremity swelling and discomfort from the groin radiating down words. Her exam is certainly suspicious for DVT. Patient has prior renal cancer with nephrectomy on the right is supposed to have a right-sided ureter removed in [place] in the next 1-2 weeks. Patient states he is had recurrent bladder cancer. Patient is not currently on any anticoagulants. Plan for labs, DVT ultrasound patient may require CT imaging dependent on ultrasound findings. Patient has DVT of right lower extremity. Patient does not have chest pain or shortness of breath but was slightly tachycardic on arrival so CT PE was ordered, aortic runoff was also obtained as patient has known mass and concerned about arterial occlusion and not just venous. This does not show any arterial occlusion not as helpful from a venous evaluation but no obvious large occlusion of the IVC. Patient started on oral anticoagulation. He is supposed to have surgery for removal of his mass and has had imaging as an outpatient fairly recently was asked to discuss this with his surgeon and may need vascular involved. Strict return precautions. All questions answered. Discharge Plan Departure Patient Disposition: Home Clinical Impression: Acute deep vein thrombosis (DVT) of right lower extremity, Nodule of right lung, Pelvic mass in male Instructions: DI for Deep Vein Thrombosis Activity Restrictions/Additional Instructions: Your imaging today does show a DVT in multiple blood vessels in your leg. Let your surgeon know as this may affect your surgery how it is performed and the timing. Discs with your images are included today. Call them today or alexey [facility]row. You do need to be on a blood thinner. You will take 10 mg (2 tablets) twice daily x7 days, then 5 mg (1 tablet) twice daily for least 6-12 months. Prescription sent [facility] in [place]. Your pelvic mass is still present and appears to be around the arteries, the arteries do appear to have good flow at this time. There are no signs of blood clots in your chest or lungs. Please return for increasing pain, swelling of your leg, color changes particularly bluish discoloration or white discoloration, fevers, new chest pain or shortness of breath, increasing abdominal back or flank pain or other new or concerning changes. Prescriptions: New Eliquis DVT-PE Treat 30D Start 5 mg (74 tabs) tablets,dose pack See Rx Instructions .ROUTE .COMPLEX Qty: 74 0RF Rx Instructions: Take 10 mg (2tablets) p.o. q.12 hours x7 days, then 5 mg (1tablet) p.o. q.12 hours No Action tamsulosin [Flomax] 0.4 mg capsule 0.4 mg PO BID Qty: 0 labetalol 100 mg tablet 100 mg PO DAILY Qty: 60 1RF Rx Instructions: APPT DUE BEFORE END OF RX/FUTURE FILLS. PLEASE CALL TO SCHEDULE APPT. THANK YOU 01/04/22. melatonin 5 mg tablet 5 mg PO BEDTIME PRN Referrals: Adebayo Hand MD [Primary Care Provider] - Visit Report Forms: Patient Portal/API
--- NOTE | 2022-05-10 08:41 | DI.US.S_ITS ---
PROCEDURE: US PERIPH VENOUS LOW EXTREM RT INDICATIONS: SWELLING AND PAIN TECHNIQUE: Real-time imaging, as well as color and pulse Doppler interrogation, were performed of the lower extremity deep veins from the inguinal ligament to the popliteal fossa. COMPARISON: None. FINDINGS: There is echogenic thrombus seen in the superficial femoral vein proximal, mid, and distal segments. No flow is visible in the common femoral vein or profundus femoral vein. The popliteal vein demonstrates echogenic material and minimal, bidirectional flow suggesting venous stasis. IMPRESSION: 1. Deep venous thrombosis throughout common femoral, superficial femoral, greater saphenous veins, and sluggish, ineffective flow in the popliteal vein. 2. Findings called to Dr. Machado in the emergency room at 09:29 hours. Dictated by: Amber Francois M.D. on 05/10/2022 at 9:25 Approved by: Amber Francois M.D. on 05/10/2022 at 9:30
[2022-05-10 09:06] LABS: Add Manual Diff / Slide Review NO; Basophils Absolute Auto 100 /uL (0-100); Basophils Percent Auto 0.5 % (0-2); Eosinophils Absolute Auto 500 /uL (0-450); Eosinophils Percent Auto 4.7 % (2-4); Hematocrit 36.4 % (41-53); Hemoglobin 12.1 g/dL (13.5-17.5); Lymphocytes Absolute Auto 800 /uL (1100-4500); Lymphocytes Percent Auto 7.2 % (25-40); Mean Corpuscular HGB Conc 33.3 % (30-36); Mean Corpuscular Hemoglobin 29.5 PG (26-34); Mean Corpuscular Volume 88.6 fL (80-100); Monocytes Absolute Auto 1100 /uL (0-900); Monocytes Percent Auto 10.4 % (3-14); Neutrophils Absolute Auto 8100 /uL (1500-7000); Neutrophils Percent Auto 77.2 % (50-75); Platelet Count 196 X10^3/uL (150-400); Red Blood Cell Count 4.11 X10^6/uL (4.5-5.9); White Blood Cell Count 10.5 X10^3/uL (4.5-11.0)
--- NOTE | 2022-05-10 09:13 | DI.CT.S_ITS ---
PROCEDURE: CT ANGIO ABD AORTA RUNOFF INDICATIONS: clot right leg, abd pain TECHNIQUE: After the administration of intravenous contrast, 2.5 mm sections acquired from T12 to the feet, with optional delayed image acquisition from the knees to the feet. 3-dimensional maximum intensity projection (MIP) coronal and sagittal reformats, and/or 3-dimensional volume rendering reformatting was then performed. For radiation dose reduction, the following was used: automated exposure control. COMPARISON: [facility], CT, CT KIDNEY URETER BLADDER (KUB), 07/01/2021, 15:20. [facility], MR, MR ABDOMEN PELVIS WITH/WITHOUT CONTRAST, 02/25/2022, 10:00. FINDINGS: Image quality: Excellent. Extravascular tissues: Same-day CT pulmonary angiogram dictated separately. Multiple liver cysts are present as before. Gallbladder is unremarkable . Biliary system is non dilated. No dilation of the main pancreatic duct. Similar small pancreatic cyst, described in the report for prior MRI. Spleen is normal in size and enhancement. No adrenal nodules. Prior right nephrectomy. Redemonstrated dilated fluid-filled structure in the right retroperitoneum suspected to represent a ureteral remnant. At the level of the upper pelvis, this terminates into a heterogeneous soft tissue mass as seen on prior MRI. This measures 6.6 x 4.4 centimeters () previously 3.9 x 2.2 centimeters. No left hydronephrosis. No bowel obstruction. No free fluid or air. Right pelvic mass may be contiguous with right external iliac chain adenopathy. Bladder appears trabeculated. No suspicious bony lesions. No vertebral body compression fractures. Abdominal aorta: No abdominal aortic aneurysm. 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 Right lower extremity: Above described right pelvic mass encases the right common iliac artery and proximal internal and external iliac arteries. There is narrowing of the proximal right internal iliac artery at the mass, artery appears patent downstream to the mass. The right common femoral vein and external iliac vein could be involved by the right pelvic mass but are not well evaluated on this exam optimized for arterial evaluation. Right common femoral, femoral, popliteal artery, tibioperoneal trunk, anterior tibial artery, posterior tibial artery are patent. Perennial artery is visualized from its origin to just above the ankle . Just above the ankle, it is no longer visualized (for example -[id number]) Left lower extremity: Left common femoral, femoral, popliteal artery, tibioperoneal trunk, anterior tibial artery, posterior tibial artery are patent. Perennial artery is visualized from its origin to just above the ankle . Just above the ankle, it is no longer visualized, similar to the right side. IMPRESSION: 1. Intact 3 vessel runoff to the ankles bilaterally. At the level of the ankles, the peroneal artery is no longer visualized bilaterally, suspect due to small caliber as the finding is present bilaterally. Correlation with the patient's symptoms and area of ischemia may be helpful however as distal occlusion cannot be excluded. 2. 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 3. 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 This mass encases the right common iliac artery and proximal internal and external iliac arteries. 4. Right lower extremity appears enlarged compared to the left with soft tissue edema present. Correlation for venous/outflow obstruction may be helpful. Veins are not well evaluated on this exam optimized for arterial evaluation. Dictated by: Wilmer Contreras M.D. on 05/10/2022 at 10:34 Approved by: Wilmer Contreras M.D. on 05/10/2022 at 11:04
--- NOTE | 2022-05-10 09:13 | DI.CT.S_ITS ---
PROCEDURE: CT ANGIO CHEST PE PROTOCOL INDICATIONS: clot right leg TECHNIQUE: After the administration of intravenous contrast, 2 mm thick sections acquired from the pulmonary apices to the posterior costophrenic angles. 3-dimensional maximum intensity projection (MIP) coronal and sagittal reformats were then acquired through the thorax. For radiation dose reduction, the following was used: automated exposure control, adjustment of mA and/or kV according to patient size. COMPARISON: [facility], CT, CT ANGIO ABD AORTA RUNOFF, 05/10/2022, 9:46. FINDINGS: Image quality: Excellent. Pulmonary arteries: Pulmonary arteries are normal in size, and demonstrate no intraluminal filling defects to suggest central pulmonary embolism. Lungs and pleura: No consolidation. 3 millimeter right middle lobe pulmonary nodule (6/169). No pleural effusions or pneumothorax. Mediastinum: Heart size is normal. trace pericardial effusion. No mediastinal or hilar adenopathy. Ectasia of the ascending thoracic aorta measuring 4.2 cm, measured at the level of the right pulmonary artery. Esophagus is normal in caliber, without hiatal hernia. Bones and chest wall: No suspicious bony lesions. Ribs and thoracic spine appear intact throughout. No axillary or supraclavicular adenopathy. Abdomen: Dictated separately. IMPRESSION: 1. No pulmonary embolism demonstrated. 2. Nonspecific 3 millimeter right middle lobe pulmonary nodule. Follow-up can be obtained as clinically indicated. 3. Ectasia of the thoracic aorta. Dictated by: Wilmer Contreras M.D. on 05/10/2022 at 10:19 Approved by: Wilmer Contreras M.D. on 05/10/2022 at 10:34
[2022-05-10 09:17] LABS: INR 1.2 (0.9-1.3); Prothrombin Time 14.3 SECONDS (10.1-12.7)
[2022-05-10 09:20] LABS: PTT Partial Thromboplastin Tim 47 SECONDS (26-36)
[2022-05-10 09:22] LABS: Alanine Aminotransferase 12 IU/L (<50); Albumin 3.6 g/dL (3.5-5.0); Alkaline Phosphatase 84 U/L (38-126); Aspartate Aminotransferase 17 IU/L (17-59); BUN Creatinine Ratio 14.3 (6-22); Bilirubin Total 0.8 mg/dL (0.2-1.3); Blood Urea Nitrogen 20 mg/dL (9-20); Calcium 8.6 mg/dL (8.4-10.2); Carbon Dioxide 27 mmol/L (22-32); Chloride 100 mmol/L (98-107); Estimated Glomerular Filt Rate 53 mL/min (>60); Globulin 3.6 g/dL (1.7-4.1); Glucose 123 mg/dL (80-110); HEMOLYSIS < 15 (0-50); Lipase 55 U/L (23-300); Potassium 4.1 mmol/L (3.4-5.1); Sodium 134 mmol/L (137-145); Total Protein 7.2 g/dL (6.3-8.2)
[2022-05-10] MEDS: APIXABAN 5 MG TABLET 10 MG PO (11:23)
[2022-05-10] MEDS: ACETAMINOPHEN 325 MG TABLET 975 MG PO (11:23)
== END 2022-05-10 11:45 | disposition home or self-care (01) ==
PROVIDERS: Emergency Provider Emergency Medicine; Family Provider Internal Medicine; PCP Internal Medicine
DX: I82.401 Acute embolism and thrombosis of unspecified deep veins of right lower extremity (principal); R91.1 Solitary pulmonary nodule; R19.00 Intra-abdominal and pelvic swelling, mass and lump, unspecified site; C67.9 Malignant neoplasm of bladder, unspecified
CPT/HCPCS: 71275; 75635; 80053; 83690; 85025; 85610; 85730; 93971; 99284; Q9967

== ENCOUNTER 2022-05-11 21:13 | Emergency (ER) | payer MEDICARE, OTHER, SELFPAY ==
[2022-05-11 21:35] VITALS: BP 126/73; PULSE 117; RESP 18; TEMP 36.6; O2SAT 98
[2022-05-11] MEDS: ACETAMINOPHEN 325 MG TABLET 650 MG PO (21:56)
[2022-05-11 21:58] LABS: Add Manual Diff / Slide Review NO; Basophils Absolute Auto 100 /uL (0-100); Basophils Percent Auto 1.1 % (0-2); Eosinophils Absolute Auto 500 /uL (0-450); Eosinophils Percent Auto 4.9 % (2-4); Hematocrit 36.1 % (41-53); Hemoglobin 11.8 g/dL (13.5-17.5); Lymphocytes Absolute Auto 900 /uL (1100-4500); Lymphocytes Percent Auto 8.5 % (25-40); Mean Corpuscular HGB Conc 32.8 % (30-36); Mean Corpuscular Hemoglobin 28.8 PG (26-34); Mean Corpuscular Volume 87.9 fL (80-100); Monocytes Absolute Auto 1200 /uL (0-900); Monocytes Percent Auto 10.8 % (3-14); Neutrophils Absolute Auto 8300 /uL (1500-7000); Neutrophils Percent Auto 74.7 % (50-75); Platelet Count 209 X10^3/uL (150-400); Red Blood Cell Count 4.11 X10^6/uL (4.5-5.9); Red Cell Distribution Width 13.1 % (11.6-14.8); White Blood Cell Count 11.1 X10^3/uL (4.5-11.0)
[2022-05-11 22:25] LABS: Bacteria Urine None Seen; Culture Indicated Urine Cult Not Indicated; RBC Urine >100/HPF (0-5/HPF); WBC Urine 1-5/HPF (0-5/HPF)
--- NOTE | 2022-05-11 23:00 | PC.NURSE ---
Moved to room 2 - care assumed - awaiting test results - family at bedside - no needs voiced
[2022-05-11 23:44] LABS: Alanine Aminotransferase 18 IU/L (<50); Albumin 3.7 g/dL (3.5-5.0); Alkaline Phosphatase 94 U/L (38-126); Aspartate Aminotransferase 31 IU/L (17-59); BUN Creatinine Ratio 14.3 (6-22); Bilirubin Total 0.5 mg/dL (0.2-1.3); Blood Urea Nitrogen 24 mg/dL (9-20); Calcium 8.6 mg/dL (8.4-10.2); Carbon Dioxide 26 mmol/L (22-32); Chloride 100 mmol/L (98-107); Estimated Glomerular Filt Rate 42 mL/min (>60); Globulin 3.8 g/dL (1.7-4.1); Glucose 158 mg/dL (80-110); HEMOLYSIS < 15 (0-50); Potassium 4.1 mmol/L (3.4-5.1); Sodium 135 mmol/L (137-145); Total Protein 7.5 g/dL (6.3-8.2)
--- NOTE | 2022-05-11 23:45 | PC.NURSE ---
Resting quietly in NAD - no needs voiced - PWD with respirations equal and unlabored bilaterally - family at bedside
[2022-05-12 00:18] LABS: Hematocrit 33.2 % (41-53); Hemoglobin 10.9 g/dL (13.5-17.5)
--- NOTE | 2022-05-12 00:30 | PC.NURSE ---
No changes in pt status
--- NOTE | 2022-05-12 00:53 | ED.MALEGU ---
HPI - Male Genitourinary General Chief complaint: Urogenital-Male Stated complaint: urinating blood Time Seen by Provider: 05/11/22 22:54 Source: patient Mode of arrival: Ambulatory History of Present Illness HPI Narrative: 76M former smoker with known urothelial mass and occasional hematuria in his past was recently started on anticoagulation for a right lower extremity DVT presents with a large amount of blood in his urine. He has no pain and denies any systemic symptoms such as dizziness, weakness or lightheadedness. He has no chest pain or shortness of breath. Denies abdominal pain, nausea or vomiting. He is had no fever or chills. Related Data Home Medications Medication Instructions Recorded Confirmed tamsulosin 0.4 mg capsule (Flomax) 0.4 mg PO BID #0 caps 02/28/19 05/09/22 melatonin 5 mg tablet 5 mg PO BEDTIME PRN 09/09/20 05/09/22 Previous Rx's Medication Instructions Recorded labetalol 100 mg tablet 100 mg PO DAILY #60 tabs 01/04/22 apixaban 5 mg (74 tabs) tablets in See Rx Instructions PO .COMPLEX 05/10/22 a dose pack ([facility] DVT-PE Treat #74 ea 30D Start) Allergies Allergy/AdvReac Type Severity Reaction Status Date / Time adhesive Allergy Mild REDNESS, Verified 05/10/22 08:44 ITCHING No Known Drug Allergies Allergy Unknown Verified 05/10/22 08:44 [NO KNOWN DRUG ALLERGIES] Raw apples AdvReac Intermediate GI upset Uncoded 05/10/22 08:44 Review of Systems Review of Systems Narrative: GENERAL: Denies chills, fatigue, malaise, fever, sweats. HEENT: Denies sinus pain, ear pain, sore throat, difficulty swallowing, dizziness. RESPIRATORY: Denies dyspnea, cough, wheezing, hemoptysis, sputum. CARDIOVASCULAR: Denies chest pain, palpitations, orthopnea, edema, GASTROINTESTINAL: Denies nausea, vomiting, abdominal pain, diarrhea, constipation, melena. : See HPI MUSCULOSKELETAL: denies weakness, joint pain, or bony pain SKIN: Denies rash, skin lesions, or other NEUROLOGIC: Denies weakness, headache, numbness, change in speech, confusion, seizures, incoordination. PSYCHIATRIC: No concerning psychosocial issues. 12 point review of systems is negative except for those stated above Patient History Medical History Acne (1962) Bladder cancer (2016) Bladder cancer BPH (benign prostatic hyperplasia) Chicken pox Complete tear of left rotator cuff (01/14/16) Essential hypertension (07/23/15) Hayfever (1963) History of adenomatous polyp of colon Kidney stones (2010) Malignant neoplasm of kidney (01/12/13) Measles Mumps Obstructive sleep apnea (09/07/11) Stage 3 chronic kidney disease (01/03/13) Thrombocytopenia Vertigo Surgical History Anesthesia History of nephrectomy (12/2012) Status post rotator cuff repair (2003) Status post rotator cuff repair (2012) Family History Father No problems noted. Mother No problems noted. Sister No problems noted. 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 Well-developed patient, in mild distress. HEAD: Atraumatic. Normocephalic. EYES: Pupils equal round and reactive. Extraocular motions intact. No scleral icterus. No injection or drainage. ENT: Nose without bleeding, purulent drainage. Throat without erythema, tonsillar hypertrophy or exudate. Airway patent. NECK: Trachea midline. Non tender CARDIOVASCULAR: Regular rate and rhythm without murmurs, gallops, or rubs. RESPIRATORY: Clear to auscultation. Breath sounds equal bilaterally. No wheezes, rales, or rhonchi. GASTROINTESTINAL: Abdomen soft, non-tender, nondistended. EXTREMITIES: No edema or joint tenderness. BACK: Nontender without deformity or crepitance. No flank tenderness. NEURO: AOx3. SKIN: No rash or erythema of visible areas Initial Vital Signs Initial Vital Signs: Vital Signs Temperature 97.9 F 05/11/22 21:35 Pulse Rate 117 H 05/11/22 21:35 Respiratory Rate 18 05/11/22 21:35 Blood Pressure 126/73 05/11/22 21:35 Pulse Oximetry 98 05/11/22 21:35 Oxygen Delivery Method 05/11/22 21:35 Course Orders Ordered: Discontinued Medications Acetaminophen (Acetaminophen 325 Mg Tablet) 650 mg PO Q4H PRN PRN Reason: Fever/Mild Pain (1-3) Last Admin: 05/11/22 21:56 Dose: 650 mg Documented By: NR Reevaluation(s) Reevaluation #1: Repeat H&H stable, patient remains asymptomatic Consultations Consultation #1: Discussed with on-call Urology, recommends stopping anticoagulation until hematuria stops, no indication for further imaging or catheter etc. Consultation #2: Discussed with patient's PCP, will follow closely as an outpatient Vital Signs Vital signs: Vital Signs - 8 hr 05/11/22 21:35 Temperature 97.9 F Pulse Rate 117 H Respiratory Rate 18 Blood Pressure 126/73 Pulse Oximetry 98 Oxygen Delivery Method Room Air MDM - Male Genitourinary Lab Data Result diagrams: 05/11/22 23:59 05/11/22 21:48 Labs: Lab Results 05/11/22 05/11/22 05/11/22 Range/Units 21:48 21:48 21:48 WBC 11.1 H (4.5-11.0) X10^3/uL RBC 4.11 L (4.5-5.9) X10^6/uL Hgb 11.8 L (13.5-17.5) g/dL Hct 36.1 L (41-53) % MCV 87.9 (80-100) fL MCH 28.8 (26-34) PG MCHC 32.8 (30-36) % RDW 13.1 (11.6-14.8) % Plt Count 209 (150-400) X10^3/uL Neut % (Auto) 74.7 (50-75) % Lymph % (Auto) 8.5 L (25-40) % [place] % (Auto) 10.8 (3-14) % Eos % (Auto) 4.9 H (2-4) % Baso % (Auto) 1.1 (0-2) % Neut # (Auto) 8300 H (7470-2971) /uL Lymph # (Auto) 900 L (2644-8178) /uL [place] # (Auto) 1200 H (0-900) /uL Eos # (Auto) 500 H (0-450) /uL Baso # (Auto) 100 (0-100) /uL Sodium 135 L (137-145) mmol/L Potassium 4.1 (3.4-5.1) mmol/L Chloride 100 (98-107) mmol/L Carbon Dioxide 26 (22-32) mmol/L BUN 24 H (9-20) mg/dL Creatinine 1.68 H (0.66-1.25) mg/dL Estimated GFR 42 L (>60) mL/min BUN/Creatinine Ratio 14.3 (6-22) Glucose 158 H (80-110) mg/dL Calcium 8.6 (8.4-10.2) mg/dL Total Bilirubin 0.5 (0.2-1.3) mg/dL AST 31 (17-59) IU/L ALT 18 (<50) IU/L Alkaline Phosphatase 94 (38-126) U/L Total Protein 7.5 (6.3-8.2) g/dL Albumin 3.7 (3.5-5.0) g/dL Globulin 3.8 (1.7-4.1) g/dL Albumin/Globulin Ratio 1.0 (1.0-2.8) Urine RBC (0-5/HPF) Urine WBC (0-5/HPF) Urine Bacteria (None) Ur Culture Indicated? Blood Type A Positive Antibody Screen Negative 05/11/22 05/11/22 Range/Units 21:52 23:59 WBC (4.5-11.0) X10^3/uL RBC (4.5-5.9) X10^6/uL Hgb 10.9 L (13.5-17.5) g/dL Hct 33.2 L (41-53) % MCV (80-100) fL MCH (26-34) PG MCHC (30-36) % RDW (11.6-14.8) % Plt Count (150-400) X10^3/uL Neut % (Auto) (50-75) % Lymph % (Auto) (25-40) % [place] % (Auto) (3-14) % Eos % (Auto) (2-4) % Baso % (Auto) (0-2) % Neut # (Auto) (4817-6168) /uL Lymph # (Auto) (6594-6417) /uL [place] # (Auto) (0-900) /uL Eos # (Auto) (0-450) /uL Baso # (Auto) (0-100) /uL Sodium (137-145) mmol/L Potassium (3.4-5.1) mmol/L Chloride (98-107) mmol/L Carbon Dioxide (22-32) mmol/L BUN (9-20) mg/dL Creatinine (0.66-1.25) mg/dL Estimated GFR (>60) mL/min BUN/Creatinine Ratio (6-22) Glucose (80-110) mg/dL Calcium (8.4-10.2) mg/dL Total Bilirubin (0.2-1.3) mg/dL AST (17-59) IU/L ALT (<50) IU/L Alkaline Phosphatase (38-126) U/L Total Protein (6.3-8.2) g/dL Albumin (3.5-5.0) g/dL Globulin (1.7-4.1) g/dL Albumin/Globulin Ratio (1.0-2.8) Urine RBC >100/hpf H (0-5/HPF) Urine WBC 1-5/hpf (0-5/HPF) Urine Bacteria None seen (None) Ur Culture Indicated? Cult not indicated Blood Type Antibody Screen Discharge Plan Departure Patient Disposition: Home Clinical Impression: Hematuria Instructions: DI for Hematuria Activity Restrictions/Additional Instructions: *You have been diagnosed with [hematuria while on anticoagulation.] *What to do: *Please. Your Eliquis for the next few days, until your bleeding stops. Follow-up closely with your primary care provider to discuss options moving forward. *Please follow up with your primary care provider in 2-3 days, call for an appointment. Let them know you were seen in the Emergency Department and that we ask that you be seen in follow up. We will electronically transmit a record of today's note if your PCP is in our system *Return to Emergency Department if you should have any new, worsening or concerning symptoms, such as [fever greater than 101 F, shaking chills, worsening pain, persistent vomiting or other bothersome symptoms] Prescriptions: No Action tamsulosin [Flomax] 0.4 mg capsule 0.4 mg PO BID Qty: 0 labetalol 100 mg tablet 100 mg PO DAILY Qty: 60 1RF Rx Instructions: APPT DUE BEFORE END OF RX/FUTURE FILLS. PLEASE CALL TO SCHEDULE APPT. THANK YOU 01/04/22. melatonin 5 mg tablet 5 mg PO BEDTIME PRN Eliquis DVT-PE Treat 30D Start 5 mg (74 tabs) tablets,dose pack See Rx Instructions .ROUTE .COMPLEX Qty: 74 0RF Rx Instructions: Take 10 mg (2tablets) p.o. q.12 hours x7 days, then 5 mg (1tablet) p.o. q.12 hours Referrals: Adebayo Hand MD [Primary Care Provider] - Cornelius Vela DO [Non-Staff] - Visit Report Forms: Patient Portal/API
[2022-05-12 02:42] VITALS: BP 140/80; PULSE 92; RESP 18; O2SAT 98
== END 2022-05-12 02:42 | disposition home or self-care (01) ==
PROVIDERS: Emergency Provider Emergency Medicine; Family Provider Internal Medicine; PCP Internal Medicine
DX: R31.9 Hematuria, unspecified (principal); Z79.01 Long term (current) use of anticoagulants
CPT/HCPCS: 36415; 80053; 81015; 85014; 85018; 85025; 86850; 86900; 86901; 99283

== ENCOUNTER 2022-06-14 09:45 | Outpatient (RCR) | payer MEDICARE, OTHER, SELFPAY ==
--- NOTE | 2022-04-20 20:37 | PT.OIE ---
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 Kidney removed 01/2013. Enlarged prostate. Original Note: Current Diagnoses Postural kyphosis, site unspecified (04/20/22) Low back pain, unspecified (04/20/22) Past Medical History (This Medical Record has been edited. Action required.) Acne (1961) Bladder cancer (2016) Bladder cancer BPH (benign prostatic hyperplasia) Chicken pox Complete tear of left rotator cuff (01/14/16) Essential hypertension (07/23/15) Hayfever (1963) History of adenomatous polyp of colon Kidney stones (2010) Malignant neoplasm of kidney (01/12/13) Measles Mumps Obstructive sleep apnea (09/07/11) Stage 3 chronic kidney disease (01/03/13) Thrombocytopenia (07/23/15) Vertigo Past Surgical History (This Medical Record has been edited. Action required.) Anesthesia History of nephrectomy (12/2012) Status post rotator cuff repair (2003) Status post rotator cuff repair (2012) Visit Care Team Role Provider Type Adebayo Hand MD Family Provider Physician Primary Care Provider Specialty: Internal Medicine Address: [address] [place] [address], [id number] Email: [email or web address] Chapin Attending Provider Physician Referring Provider Specialty: Family Practice Address: [address] [place] [address], [facility] Phone: Fax: Email: [email or web address] Initial Evaluation PT-OP-A Visit Information Start: 04/16/22 18:30 Freq: Status: Active Protocol: Document 04/20/22 10:42 LRN (Rec: 04/20/22 11:25 LRN [id number]) Out-Patient Physical Therapy Visit Information Visit Information Visit Type Initial Evaluation Visit Start Time 10:42 Visit Stop Time 11:22 Total Visit Minutes 40 Visit Number 1 Evaluation Information Evaluation Date 04/20/22 Precautions Precautions Tape allergy, Recent cancer history-currently on list to have mass removed from the R ureter (planning removal of entire ureter in [place], believed cancerous), Bladder cancer removals. Kidney removed 01/2013. Enlarged prostate. PT-OP-B Current Condition Start: 04/16/22 18:30 Freq: Status: Active Protocol: Document 04/20/22 10:42 LRN (Rec: 04/20/22 11:25 LRN [id number]) Current Condition History of Current Condition Onset Date 6 weeks ago Current Complaints Back (R>L) and R hip pain. History of Current Condition Insidious onset 6 weeks ago, 1 month ago took an RV trip and made pain worse. Just started Amitriptyline for scotum pain which makes him sleepy. Prior Treatments and Tests None. 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 Future Testing and Treatments Planned none. Treatment Goals Patient/Caregiver Goals Pt goal with therapy: -Reduce the back pain to relieve the need for wearing the back brace, and -Reduce R hip pain into the anterior thigh in order to reduce need for Tylenol daily at night before bed (used to help sleep). 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 Medications for blood pressure and urine flow. Current Functional Impairments (Reported) Functional Limitations- ADL's Must wear a soft back brace to sit > 1/2 hr. Wears the back brace daily except when on feet and walking, doesn't need . Functional Limitations- Other Must wear soft brace to sit in his primary chair for >30 minutes. Personal Factors Other Personal Factors That May Effect Allergy to tape, Controlled Therapy/Recovery HBP, Bladder cancer removals and currently on list to have mass removed from the R ureter (Removing the entire ureter in [place], believed cancerous). Kidney removed 2012. PT-OP-C Subjective Start: 04/16/22 18:30 Freq: Status: Active Protocol: Document 04/20/22 10:42 LRN (Rec: 04/20/22 11:25 LRN [id number]) Patient Questionnaires Oswestry Low Back Index Oswestry Score 30 Oswestry Impairment 20 to 39% Impaired (Score 20- 39) OP-PT Pain Assessment Pain Assessment Grid Paper Pain Assessment Grid Completed Yes Location Low Back Pain Location Details Across low back at PSIS level Intensity 3 Scale Used Numeric (0 - 10) Description- Other Sharp on the R side, L side is a dull pain. PT-OP-H Neuro Start: 04/16/22 18:30 Freq: Status: Active Protocol: Document 04/20/22 10:42 LRN (Rec: 04/20/22 11:25 LRN [id number]) Sensation Evaluation Gross Sensation Gross Sensation WNL PT-OP-J Posture/Palpation/Skin Start: 04/16/22 18:30 Freq: Status: Active Protocol: Document 04/20/22 10:42 LRN (Rec: 04/20/22 11:25 LRN [id number]) Posture Evaluation Position Standing T-Spine Posture Increased Kyphosis L-Spine Posture Increased Lordosis,Shifted Left Shoulder Posture (R) Elevated Scapula Posture (L) Elevated Pelvis Posture Neutral Palpation Assessment Location PSIS Palpation Location R PSIS Palpation Findings Tenderness Palpation Details Sleeping on L side caused in R PSIS that radiated to anterior R thigh Low Back Palpation Location Sacrum R lateral border Palpation Findings Tenderness PT-OP-K Range of Motion Start: 04/16/22 18:30 Freq: Status: Active Protocol: Document 04/20/22 10:42 LRN (Rec: 04/20/22 11:25 LRN [id number]) Lumbar Spine Range of Motion Lumbar Spine Active Degrees Testing Position Standing Flexion 80 Extension 15 Rotation Left 15 Rotation Right 5 Lateral Flexion Left 10 Lateral Flexion Right 7 ROM Limitations Soft Tissue Tightness Comments Flex is 80/15 Ext is 15/5 Hip Goniometric Range of Motion Hip Right Passive Testing Position Supine Straight Leg Raise 80 Internal Rotation 20 External Rotation 50 Left Passive Testing Position Supine Straight Leg Raise 60 Internal Rotation 20 External Rotation 50 PT-OP-L Special Tests Start: 04/16/22 18:30 Freq: Status: Active Protocol: Document 04/20/22 10:42 LRN (Rec: 04/20/22 11:25 LRN [id number]) Special Tests Lumbar Spine Special Tests Nickolas Test Results + bilaterally Straight Leg Raise Test Results 65 L, 80 R Standing Flexion Test Results negative Vertical Spine Loading Test Results negative PT-OP-M Strength Start: 04/16/22 18:30 Freq: Status: Active Protocol: Document 04/20/22 10:42 LRN (Rec: 04/20/22 11:25 LRN [id number]) Hip Strength Hip Manual Muscle Testing Right Extension (S1) 5 Normal Comments Pain in LB with hip Ext testing Left Extension (S1) 5 Normal PT-OP-Q Treatments Start: 04/16/22 18:30 Freq: Status: Active Protocol: Document 04/20/22 10:42 LRN (Rec: 04/20/22 11:25 LRN [id number]) Self-Care/Home Management Treatment Education Patient Education Home Exercise Program Other Education Discussed and educated pt in proper sitting and nighttime positioning posture. Discussed results of evaluation, goals, and plan of care (POC). Pt agreeable to goals and POC. Activities Self-Care/Home Management Activities I/S pt in proper sitting posture and nighttime posturing. Pt to bring current HEP to next visit for review. PT-OP-T Assessment and Plan Start: 04/16/22 18:30 Freq: Status: Active Protocol: Document 04/20/22 10:42 LRN (Rec: 04/20/22 11:25 LRN [id number]) Physical Therapy Assessment Rehab Potential Rehabilitation Potential Good Evaluation Complexity Number of Personal Factors/Comorbidities 3 or More Number of Body Systems Impaired 4 or More Clinical Presentation at Evaluation Evolving Impairments Impairments Activity Tolerance,Pain, Posture,ROM,Soft Tissue Mobility,Strength Goals Three Impairment R hip>anterior thigh pain rated 4-7/10, L hip pain rated 1/10. Short Term Goal (STG) Educate pt in proper sitting and standing posture using external supports as needed. STG Duration 04/27/22 Roof Tile Layer Goal (LTG) Decrease R hip/anterior thigh pain in order to reduce need for Tylenol nightly before bedtime. LTG Duration 07/13/22 Two Impairment Reduce back pain Impairment Back pain rated 3/10 (R worse than L), interrupting ability to sleep at night. Short Term Goal (STG) Pt will be educated in proper sleep posturing to reduce onset of back pain. STG Duration 04/21/22 Senior Living Goal (LTG) Decrease back pain to a level to relieve the need for wearing the back brace LTG Duration 07/13/22 One Impairment Lacks appropriate self care HEP. Short Term Goal (STG) Improve L PSLR and normalize trunk posture (eliminate L lateral shift) with self care HEP. STG Duration 05/07/22 Senior Living Goal (LTG) Pt will be independent in a self care HEP of trunk ( improve rot R>L, & SB R>L) and hip mobility (improve Ilipsoas mobility), and hip strength as appropriate. LTG Duration 07/13/22 Assessment Summary Assessment Pt presents with a mechanical dysfunction of the lumbar spine with a lateral trunk shift and lordosis with pelvis in posterior tilt. He has a notable thoracic kyphosis and demonstrates a slumped posture in sitting. His low back and R hip pain appears to be related to poor positioning sitting, standing and with nighttime positioning. He doesn't appear to have neurological involvement of the lumbar spine, although he has a lateral trunk shift to the left. Provocative tesing of vertical spine loading and repetitive trunk flex are negative for neurological involvement. He does demonstrate increased neural tension in the L LE with a +L PSLR, possibly SIJ related. Further assessment of his hip and core strength is needed. The pt will benefit from skilled physical therapy to achieve the above stated goals . Physical Therapy Plan Frequency and Duration Frequency of Treatment 2x/Week Duration of treatment (weeks) 12 Plan of Care Start Date 04/20/22 Plan of Care End Date 07/13/22 Therapeutic Interventions Therapeutic Interventions Home Exercise Program,Manual Therapy,Patient/Caregiver Education,Self-Care/Home Management,Soft Tissue Mobilization,Therapeutic Exercises Modalities Cold Pack/Ice Massage,Hot Packs Next Visit Focus/Plan Next Note Type Treatment Note Next Visit Plan Review proper nighttime posturing with handout issued if needed and proper sitting/ standing posture. Issue HEP: correction for L lateral trunk shift and L PSLR (recheck RLE). Assess Hip/core strength and issue ex's for core/pelvic stability and hip strengthening as needed. Review pt's current HEP (if brought in) for appropriatenes of care. Ther Ex & HEP of trunk ( improve rot R>L, & SB R>L) and hip mobility (improve Ilipsoas mobility). Modalities of ice/heat only due to Cancer ongoing history.
--- NOTE | 2022-04-20 20:37 | PT.OPPOC ---
Physical, Occupational & Speech Therapy At [facility] Current Diagnoses Postural kyphosis, site unspecified (04/20/22) Low back pain, unspecified (04/20/22) Visit Care Team Role Provider Type Adebayo Hand MD Family Provider Physician Primary Care Provider Specialty: Internal Medicine Address: [address] [place] [address], [address], [place], [address] Email: [email or web address] WILMAR Chapin Attending Provider Physician Referring Provider Specialty: Family Practice Address: [facility] [address], [place], [address] Phone: Fax: Email: [email or web address] Plan Of Care PT-OP-T Assessment and Plan Start: 04/16/22 18:30 Freq: Status: Active Protocol: Document 04/20/22 10:42 LRN (Rec: 04/20/22 11:25 LRN [id number]) Physical Therapy Assessment Rehab Potential Rehabilitation Potential Good Evaluation Complexity Number of Personal Factors/Comorbidities 3 or More Number of Body Systems Impaired 4 or More Clinical Presentation at Evaluation Evolving Impairments Impairments Activity Tolerance,Pain, Posture,ROM,Soft Tissue Mobility,Strength Goals Three Impairment R hip>anterior thigh pain rated 4-7/10, L hip pain rated 1/10. Short Term Goal (STG) Educate pt in proper sitting and standing posture using external supports as needed. STG Duration 04/27/22 Casino Enforcement Agent Goal (LTG) Decrease R hip/anterior thigh pain in order to reduce need for Tylenol nightly before bedtime. LTG Duration 07/13/22 Two Impairment Reduce back pain Impairment Back pain rated 3/10 (R worse than L), interrupting ability to sleep at night. Short Term Goal (STG) Pt will be educated in proper sleep posturing to reduce onset of back pain. STG Duration 04/21/22 Usp Goal (LTG) Decrease back pain to a level to relieve the need for wearing the back brace LTG Duration 07/13/22 One Impairment Lacks appropriate self care HEP. Short Term Goal (STG) Improve L PSLR and normalize trunk posture (eliminate L lateral shift) with self care HEP. STG Duration 05/07/22 Casino Enforcement Agent Goal (LTG) Pt will be independent in a self care HEP of trunk ( improve rot R>L, & SB R>L) and hip mobility (improve Ilipsoas mobility), and hip strength as appropriate. LTG Duration 07/13/22 Assessment Summary Assessment Pt presents with a mechanical dysfunction of the lumbar spine with a lateral trunk shift and lordosis with pelvis in posterior tilt. He has a notable thoracic kyphosis and demonstrates a slumped posture in sitting. His low back and R hip pain appears to be related to poor positioning sitting, standing and with nighttime positioning. He doesn't appear to have neurological involvement of the lumbar spine, although he has a lateral trunk shift to the left. Provocative tesing of vertical spine loading and repetitive trunk flex are negative for neurological involvement. He does demonstrate increased neural tension in the L LE with a +L PSLR, possibly SIJ related. Further assessment of his hip and core strength is needed. The pt will benefit from skilled physical therapy to achieve the above stated goals . Physical Therapy Plan Frequency and Duration Frequency of Treatment 2x/Week Duration of treatment (weeks) 12 Plan of Care Start Date 04/20/22 Plan of Care End Date 07/13/22 Therapeutic Interventions Therapeutic Interventions Home Exercise Program,Manual Therapy,Patient/Caregiver Education,Self-Care/Home Management,Soft Tissue Mobilization,Therapeutic Exercises Modalities Cold Pack/Ice Massage,Hot Packs Next Visit Focus/Plan Next Note Type Treatment Note Next Visit Plan Review proper nighttime posturing with handout issued if needed and proper sitting/ standing posture. Issue HEP: correction for L lateral trunk shift and L PSLR (recheck RLE). Assess Hip/core strength and issue ex's for core/pelvic stability and hip strengthening as needed. Review pt's current HEP (if brought in) for appropriatenes of care. Ther Ex & HEP of trunk ( improve rot R>L, & SB R>L) and hip mobility (improve Ilipsoas mobility). Modalities of ice/heat only due to Cancer ongoing history. Plan of Care Dates Plan of Care Start Date 04/20/22 Plan of Care End Date 07/13/22 Electronically Signed by: Taylor Rodriguez, PT 04/20/222036 If you are in agreement with this Plan of Care, please return a signed and dated copy. I have reviewed this Plan of Care and certify that the skilled therapy services above are required to meet the patient?s needs. Physician Signature Date Printed Name and Credentials Clinical Instructor Signature Printed Name and Credentials
--- NOTE | 2022-04-22 16:06 | PT.OTN ---
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 Kidney removed 01/2013. Enlarged prostate. PT-OP-B Current Condition Start: 04/16/22 18:30 Freq: Status: Active Protocol: Document 04/20/22 10:42 LRN (Rec: 04/20/22 11:25 LRN [id number]) Current Condition History of Current Condition Onset Date 6 weeks ago Current Complaints Back (R>L) and R hip pain. History of Current Condition Insidious onset 6 weeks ago, 1 month ago took an RV trip and made pain worse. Just started Amitriptyline for scotum pain which makes him sleepy. Prior Treatments and Tests None. 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 Future Testing and Treatments Planned none. Treatment Goals Patient/Caregiver Goals Pt goal with therapy: -Reduce the back pain to relieve the need for wearing the back brace, and -Reduce R hip pain into the anterior thigh in order to reduce need for Tylenol daily at night before bed (used to help sleep). 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 Medications for blood pressure and urine flow. Current Functional Impairments (Reported) Functional Limitations- ADL's Must wear a soft back brace to sit > 1/2 hr. Wears the back brace daily except when on feet and walking, doesn't need . Functional Limitations- Other Must wear soft brace to sit in his primary chair for >30 minutes. Personal Factors Other Personal Factors That May Effect Allergy to tape, Controlled Therapy/Recovery HBP, Bladder cancer removals and currently on list to have mass removed from the R ureter (Removing the entire ureter in [place], believed cancerous). Kidney removed 2012. PT-OP-C Subjective Start: 04/16/22 18:30 Freq: Status: Active Protocol: Document 04/22/22 13:53 LRN (Rec: 04/22/22 14:36 LRN [id number]) OP-PT Subjective Patient Comments Patient Comments Tried using a towel roll, but continue with [employer] back brace because uncomfortable with towel roll. PT-OP-H Neuro Start: 04/16/22 18:30 Freq: Status: Active Protocol: Document 04/20/22 10:42 LRN (Rec: 04/20/22 11:25 LRN [id number]) Sensation Evaluation Gross Sensation Gross Sensation WNL PT-OP-J Posture/Palpation/Skin Start: 04/16/22 18:30 Freq: Status: Active Protocol: Document 04/20/22 10:42 LRN (Rec: 04/20/22 11:25 LRN [id number]) Posture Evaluation Position Standing T-Spine Posture Increased Kyphosis L-Spine Posture Increased Lordosis,Shifted Left Shoulder Posture (R) Elevated Scapula Posture (L) Elevated Pelvis Posture Neutral Palpation Assessment Location PSIS Palpation Location R PSIS Palpation Findings Tenderness Palpation Details Sleeping on L side caused in R PSIS that radiated to anterior R thigh Low Back Palpation Location Sacrum R lateral border Palpation Findings Tenderness PT-OP-K Range of Motion Start: 04/16/22 18:30 Freq: Status: Active Protocol: Document 04/20/22 10:42 LRN (Rec: 04/20/22 11:25 LRN [id number]) Lumbar Spine Range of Motion Lumbar Spine Active Degrees Testing Position Standing Flexion 80 Extension 15 Rotation Left 15 Rotation Right 5 Lateral Flexion Left 10 Lateral Flexion Right 7 ROM Limitations Soft Tissue Tightness Comments Flex is 80/15 Ext is 15/5 Hip Goniometric Range of Motion Hip Right Passive Testing Position Supine Straight Leg Raise 80 Internal Rotation 20 External Rotation 50 Left Passive Testing Position Supine Straight Leg Raise 60 Internal Rotation 20 External Rotation 50 PT-OP-L Special Tests Start: 04/16/22 18:30 Freq: Status: Active Protocol: Document 09/27/22 10:42 LRN (Rec: 04/20/22 11:25 LRN [id number]) Special Tests Lumbar Spine Special Tests Nickolas Test Results + bilaterally Straight Leg Raise Test Results 65 L, 80 R Standing Flexion Test Results negative Vertical Spine Loading Test Results negative PT-OP-M Strength Start: 04/16/22 18:30 Freq: Status: Active Protocol: Document 04/20/22 10:42 LRN (Rec: 04/20/22 11:25 LRN [id number]) Hip Strength Hip Manual Muscle Testing Right Extension (S1) 5 Normal Comments Pain in LB with hip Ext testing Left Extension (S1) 5 Normal PT-OP-Q Treatments Start: 04/16/22 18:30 Freq: Status: Active Protocol: Document 04/22/22 13:53 LRN (Rec: 04/22/22 14:36 LRN [id number]) Therapeutic Exercises Supine Exercises IT Band stretch Supine Exercise Name IT Band stretch w/strap Side bilateral Reps/Minutes Hold 10 breaths (1 breath = 32 secs) Happy Baby Pose Supine Exercise Name Happy Baby Pose Reps/Minutes Hold 10 breaths x 2 (1 breath = 32 secs) SKTC Supine Exercise Name SKTC Side bilateral Reps/Minutes Hold 10 breaths x 2 (1 breath = 32 secs) Fig 4 stretch Supine Exercise Name Fig 4 stretch Side bilateral Bridge w/o crunch Supine Exercise Name Bridge Reps/Minutes 10x Piriformis Supine Exercise Name Piriformis Side bilateral Reps/Minutes Hold 10 breaths (1 breath = 32 secs) Prone Exercises Piriformis stretch Prone Exercise Name [place] Pose stretch f/b trunk SB Reps/Minutes Hold 10 breaths. (1 breath = 32 secs) Standing Exercises Standing full body stretch Standing Exercise Name Full body stretch: reaching to ceiling Reps/Minutes Hold 20 breaths (1 breath = 32 secs) Other Exercises Cat/Cow Other Exercise Name Cat/Cow Reps/Minutes x 3 Comments Cuing to flex at L/S vs T/S Child's Pose Other Exercise Name Child's Pose Reps/Minutes Hold 10 breaths (1 breath = 32 secs) Long sit Hamstring stretch Other Exercise Name Long sit Hamstring stretch Side bilateral Reps/Minutes Hold 10 breaths x 2 (1 breath = 32 secs) Self-Care/Home Management Treatment Education Patient Education Body Mechanics,Home Exercise Program,Posture Other Education Reviewed and discussed proper nighttime posturing with emphasis on sidelie posturing, and education/discussion on proper sitting/standing posture. Reviewed pt's current HEP with modifications made per verbal instructions. Activities Self-Care/Home Management Activities Issued & reviewed handouts for correct body mechanics for daily activities; proper sitting and standing posture; and proper sidelying posture. PT-OP-T Assessment and Plan Start: 04/16/22 18:30 Freq: Status: Active Protocol: Document 04/22/22 13:53 LRN (Rec: 04/22/22 14:36 LRN [id number]) Physical Therapy Assessment Goals Three Impairment R hip>anterior thigh pain rated 4-7/10, L hip pain rated 1/10. Short Term Goal (STG) Educate pt in proper sitting and standing posture using external supports as needed. STG Duration 04/27/22 (04/22/22: MET GOAL) Shelter Goal (LTG) Decrease R hip/anterior thigh pain in order to reduce need for Tylenol nightly before bedtime. LTG Duration 07/13/22 Two Impairment Reduce back pain Impairment Back pain rated 3/10 (R worse than L), interrupting ability to sleep at night. Short Term Goal (STG) Pt will be educated in proper sleep posturing to reduce onset of back pain. STG Duration 04/21/22 (04/22/22: MET GOAL) Shelter Goal (LTG) Decrease back pain to a level to relieve the need for wearing the back brace LTG Duration 07/13/22 One Impairment Lacks appropriate self care HEP. Short Term Goal (STG) Improve L PSLR and normalize trunk posture (eliminate L lateral shift) with self care HEP. STG Duration 05/07/22 [employer]er Goal (LTG) Pt will be independent in a self care HEP of trunk ( improve rot R>L, & SB R>L) and hip mobility (improve Ilipsoas mobility), and hip strength as appropriate. LTG Duration 07/13/22 Progress Towards Goals Progress Comments STG #2 & #3 MET. Assessment Summary Assessment Pt with mechanical dysfunction of the lumbar spine, lateral trunk shift and lordosis with pelvis in posterior tilt. Pt tends to put too much flexion strain on back with his current home ex's; therefore corrections were needed and a second review will be needed. Pt was able to transfer with good hip hinge at end of training. Physical Therapy Plan Frequency and Duration Frequency of Treatment 2x/Week Duration of treatment (weeks) 12 Plan of Care Start Date 04/20/22 Plan of Care End Date 07/13/22 Next Visit Focus/Plan Next Note Type Treatment Note Next Visit Plan Review and issue list of his HEP, minimizing trunk flex strain and with proper form w/ transfers & nighttime sleep position. Issue HEP: correction for L lateral trunk shift and L PSLR (recheck RLE). Assess Hip/core strength and issue ex's for core/pelvic stability and hip strengthening as needed. Ther Ex & HEP of trunk ( improve rot R>L, & SB R>L) and hip mobility (improve Ilipsoas mobility). Modalities of ice/heat only due to Cancer ongoing history.
--- NOTE | 2022-04-26 12:40 | PT.OTN ---
Current Diagnoses Postural kyphosis, site unspecified (04/26/22) Low back pain, unspecified (04/26/22) Physical Therapy Treatment Note PT-OP-A Visit Information Start: 04/16/22 18:30 Freq: Status: Active Protocol: Document 04/26/22 11:17 NBM (Rec: 04/26/22 12:36 NBM [id number]) Out-Patient Physical Therapy Visit Information Visit Information Visit Type Treatment Note Visit Start Time 11:17 Visit Stop Time 12:00 Total Visit Minutes 43 Visit Number 3 Number of [employer] DIRECTOR Visits 1 Precautions Precautions Modalities of ice/heat only due to Cancer ongoing history. 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 Kidney removed 01/2013. Enlarged prostate. PT-OP-B Current Condition Start: 04/16/22 18:30 Freq: Status: Active Protocol: Document 04/20/22 10:42 LRN (Rec: 04/20/22 11:25 LRN [id number]) Current Condition History of Current Condition Onset Date 6 weeks ago Current Complaints Back (R>L) and R hip pain. History of Current Condition Insidious onset 6 weeks ago, 1 month ago took an RV trip and made pain worse. Just started Amitriptyline for scotum pain which makes him sleepy. Prior Treatments and Tests None. 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 Future Testing and Treatments Planned none. Treatment Goals Patient/Caregiver Goals Pt goal with therapy: -Reduce the back pain to relieve the need for wearing the back brace, and -Reduce R hip pain into the anterior thigh in order to reduce need for Tylenol daily at night before bed (used to help sleep). 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 Medications for blood pressure and urine flow. Current Functional Impairments (Reported) Functional Limitations- ADL's Must wear a soft back brace to sit > 1/2 hr. Wears the back brace daily except when on feet and walking, doesn't need . Functional Limitations- Other Must wear soft brace to sit in his primary chair for >30 minutes. 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 Kidney removed 2012. PT-OP-C Subjective Start: 04/16/22 18:30 Freq: Status: Active Protocol: Document 04/26/22 11:17 NBM (Rec: 04/26/22 12:36 NBM [id number]) OP-PT Subjective Patient Comments Patient Comments Pt states he is taking amitriptyline for 6 weeks which makes him very tired. He is still not sleeping well. He tried many combinations of different pillows but was not comfortable. He hopes sleeping in a newer bed instead of the RV bed with a heat pad on his R hip will help his sleep. When he walks 1-3 miles he gets a low back pain at first which goes away as he walks. PT-OP-H Neuro Start: 04/16/22 18:30 Freq: Status: Active Protocol: Document 04/20/22 10:42 LRN (Rec: 04/20/22 11:25 LRN [id number]) Sensation Evaluation Gross Sensation Gross Sensation WNL PT-OP-J Posture/Palpation/Skin Start: 04/16/22 18:30 Freq: Status: Active Protocol: Document 04/20/22 10:42 LRN (Rec: 04/20/22 11:25 LRN [id number]) Posture Evaluation Position Standing T-Spine Posture Increased Kyphosis L-Spine Posture Increased Lordosis,Shifted Left Shoulder Posture (R) Elevated Scapula Posture (L) Elevated Pelvis Posture Neutral Palpation Assessment Location PSIS Palpation Location R PSIS Palpation Findings Tenderness Palpation Details Sleeping on L side caused in R PSIS that radiated to anterior R thigh Low Back Palpation Location Sacrum R lateral border Palpation Findings Tenderness PT-OP-K Range of Motion Start: 04/16/22 18:30 Freq: Status: Active Protocol: Document 04/20/22 10:42 LRN (Rec: 04/20/22 11:25 LRN [id number]) Lumbar Spine Range of Motion Lumbar Spine Active Degrees Testing Position Standing Flexion 80 Extension 15 Rotation Left 15 Rotation Right 5 Lateral Flexion Left 10 Lateral Flexion Right 7 ROM Limitations Soft Tissue Tightness Comments Flex is 80/15 Ext is 15/5 Hip Goniometric Range of Motion Hip Right Passive Testing Position Supine Straight Leg Raise 80 Internal Rotation 20 External Rotation 50 Left Passive Testing Position Supine Straight Leg Raise 60 Internal Rotation 20 External Rotation 50 PT-OP-L Special Tests Start: 04/16/22 18:30 Freq: Status: Active Protocol: Document 04/20/22 10:42 LRN (Rec: 04/20/22 11:25 LRN [id number]) Special Tests Lumbar Spine Special Tests Nickolas Test Results + bilaterally Straight Leg Raise Test Results 65 L, 80 R Standing Flexion Test Results negative Vertical Spine Loading Test Results negative PT-OP-M Strength Start: 04/16/22 18:30 Freq: Status: Active Protocol: Document 04/20/22 10:42 LRN (Rec: 04/20/22 11:25 LRN [id number]) Hip Strength Hip Manual Muscle Testing Right Extension (S1) 5 Normal Comments Pain in LB with hip Ext testing Left Extension (S1) 5 Normal PT-OP-Q Treatments Start: 04/16/22 18:30 Freq: Status: Active Protocol: Document 04/26/22 11:17 NBM (Rec: 04/26/22 12:36 NBM [id number]) Therapeutic Exercises Supine Exercises Lower trapezius Supine Exercise Name slide palms down sides, then gentle press into mat Side bilateral Comments added to HEP Happy Baby Pose Supine Exercise Name Happy Baby Pose Reps/Minutes Hold 10 breaths x 2 (1 breath = 32 secs) SKTC Supine Exercise Name SKTC - review Side bilateral Reps/Minutes Hold 10 breaths x 2 (1 breath = 32 secs) Fig 4 stretch Supine Exercise Name Fig 4 stretch Side bilateral Bridge w/o crunch Supine Exercise Name Bridge Reps/Minutes 10x Comments cues for glute squeeze, slow eccentric Piriformis Supine Exercise Name Piriformis Side bilateral Reps/Minutes Hold 10 breaths (1 breath = 32 secs) Comments cues for relaxed neck Sidelying Exercises Open Book stretch Sidelying Exercise Name added to HEP Side bilateral Comments pillow between knees/ankles Sitting Exercises Scap retraction Comments cue to hold pencil between shoulder blades Standing Exercises Levator scap stretch Side bilateral Reps/Minutes 2 x 3 breath cycles Comments tightness R>L, good feedback response Standing full body stretch Standing Exercise Name reviewed: Full body stretch: reaching to ceiling Reps/Minutes Hold 20 breaths (1 breath = 32 secs) Other Exercises Thread the Needle Other Exercise Name added to HEP Side bilateral Comments good feedback response Cat/Cow Other Exercise Name Cat/Cow Reps/Minutes x 3 Comments Cuing to flex at L/S vs T/S Self-Care/Home Management Treatment Education Patient Education Body Mechanics,Home Exercise Program,Posture Other Education Reviewed and discussed proper nighttime posturing with emphasis on sidelie posturing, and education/discussion on proper sitting/standing posture. Utilized homero line to identify L lateral trunk shift w/ R cervical rotation - reviewed and issued Proper Posture HO. Added to HEP: Open Book stretch, Thread the Needle, hooklying Lower Trapezius push down - HO given. PT-OP-T Assessment and Plan Start: 04/16/22 18:30 Freq: Status: Active Protocol: Document 04/26/22 11:17 NBM (Rec: 04/26/22 12:36 [facility] [id number]) Physical Therapy Assessment Goals Three Impairment R hip>anterior thigh pain rated 4-7/10, L hip pain rated 1/10. Short Term Goal (STG) Educate pt in proper sitting and standing posture using external supports as needed. STG Duration 04/27/22 (04/22/22: MET GOAL) Half-Way Goal (LTG) Decrease R hip/anterior thigh pain in order to reduce need for Tylenol nightly before bedtime. LTG Duration 07/13/22 Two Impairment Reduce back pain Impairment Back pain rated 3/10 (R worse than L), interrupting ability to sleep at night. Short Term Goal (STG) Pt will be educated in proper sleep posturing to reduce onset of back pain. STG Duration 04/21/22 (04/22/22: MET GOAL) Order Entry Goal (LTG) Decrease back pain to a level to relieve the need for wearing the back brace LTG Duration 07/13/22 One Impairment Lacks appropriate self care HEP. Short Term Goal (STG) Improve L PSLR and normalize trunk posture (eliminate L lateral shift) with self care HEP. STG Duration 05/07/22 Order Entry Goal (LTG) Pt will be independent in a self care HEP of trunk ( improve rot R>L, & SB R>L) and hip mobility (improve Ilipsoas mobility), and hip strength as appropriate. 04/26/22: Added to HEP: Open Book stretch, Thread the Needle, hooklying Lower Trapezius push down - HO given . LTG Duration 07/13/22 Assessment Summary Assessment Treatment focus on HEP review, discussion of sleep positioning, and further posture education. Pt demonstrates good form and sufficent hold time w/ HEP but requires occasional cues to relax cervical flexors in supine. Pt requires initial cues for glute squeeze and slow eccentric motion with bridging. Pt will look into slimmer pillows for lower extremity support for sidelying sleep positioning. A homero line is utilized to help pt identify L lateral trunk shift w/ R cervical rotation and anterior lean in standing - reviewed and issued Proper Posture HO. Added to HEP: Open Book stretch, Thread the Needle, hooklying Lower Trapezius push down - HO given (Goal 1). HEP HO needed for other ex next treatment. Physical Therapy Plan Frequency and Duration Frequency of Treatment 2x/Week Duration of treatment (weeks) 12 Plan of Care Start Date 04/20/22 Plan of Care End Date 07/13/22 Therapeutic Interventions Therapeutic Interventions Home Exercise Program,Manual Therapy,Patient/Caregiver Education,Self-Care/Home Management,Soft Tissue Mobilization,Therapeutic Exercises Modalities Cold Pack/Ice Massage,Hot Packs Next Visit Focus/Plan Next Note Type Treatment Note Next Visit Plan Check on sleep positioning. Consider photo or mirror w/ homero line for pt's posture. POC: Review and issue list of his HEP, minimizing trunk flex strain and with proper form w /transfers & nighttime sleep position. Issue HEP: correction for L lateral trunk shift and L PSLR (recheck RLE). Assess Hip/core strength and issue ex's for core/pelvic stability and hip strengthening as needed. Ther Ex & HEP of trunk ( improve rot R>L, & SB R>L) and hip mobility (improve Ilipsoas mobility). Modalities of ice/heat only due to Cancer ongoing history.
--- NOTE | 2022-05-04 17:13 | PT.OTN ---
Current Diagnoses Postural kyphosis, site unspecified (05/04/22) Low back pain, unspecified (05/04/22) Physical Therapy Treatment Note PT-OP-A Visit Information Start: 04/16/22 18:30 Freq: Status: Active Protocol: Document 05/04/22 09:50 LRN (Rec: 05/04/22 10:32 LRN [id number]) Out-Patient Physical Therapy Visit Information Visit Information Visit Type Treatment Note Visit Start Time 09:50 Visit Stop Time 10:30 Total Visit Minutes 40 Visit Number 4 Evaluation Information Evaluation Date 04/20/22 Precautions Precautions Modalities of ice/heat only due to Cancer ongoing history. 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 Kidney removed 01/2013. Enlarged prostate. PT-OP-B Current Condition Start: 04/16/22 18:30 Freq: Status: Active Protocol: Document 04/20/22 10:42 LRN (Rec: 04/20/22 11:25 LRN [id number]) Current Condition History of Current Condition Onset Date 6 weeks ago Current Complaints Back (R>L) and R hip pain. History of Current Condition Insidious onset 6 weeks ago, 1 month ago took an RV trip and made pain worse. Just started Amitriptyline for scotum pain which makes him sleepy. Prior Treatments and Tests None. 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 Future Testing and Treatments Planned none. Treatment Goals Patient/Caregiver Goals Pt goal with therapy: -Reduce the back pain to relieve the need for wearing the back brace, and -Reduce R hip pain into the anterior thigh in order to reduce need for Tylenol daily at night before bed (used to help sleep). 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 Medications for blood pressure and urine flow. Current Functional Impairments (Reported) Functional Limitations- ADL's Must wear a soft back brace to sit > 1/2 hr. Wears the back brace daily except when on feet and walking, doesn't need . Functional Limitations- Other Must wear soft brace to sit in his primary chair for >30 minutes. Personal Factors Other Personal Factors That May Effect Allergy to tape, Controlled Therapy/Recovery HBP, Bladder cancer removals and currently on list to have mass removed from the R ureter (Removing the entire ureter in [place], believed cancerous). Kidney removed 2012. PT-OP-C Subjective Start: 04/16/22 18:30 Freq: Status: Active Protocol: Document 05/04/22 09:50 LRN (Rec: 05/04/22 10:32 LRN [id number]) OP-PT Subjective Patient Comments Patient Comments Sleeping on R side and back. Painful to sleep on L side. Surgery is May 25 for R ureterectomy. PT-OP-H Neuro Start: 04/16/22 18:30 Freq: Status: Active Protocol: Document 04/20/22 10:42 LRN (Rec: 04/20/22 11:25 LRN [id number]) Sensation Evaluation Gross Sensation Gross Sensation WNL PT-OP-J Posture/Palpation/Skin Start: 04/16/22 18:30 Freq: Status: Active Protocol: Document 04/20/22 10:42 LRN (Rec: 04/20/22 11:25 LRN [id number]) Posture Evaluation Position Standing T-Spine Posture Increased Kyphosis L-Spine Posture Increased Lordosis,Shifted Left Shoulder Posture (R) Elevated Scapula Posture (L) Elevated Pelvis Posture Neutral Palpation Assessment Location PSIS Palpation Location R PSIS Palpation Findings Tenderness Palpation Details Sleeping on L side caused in R PSIS that radiated to anterior R thigh Low Back Palpation Location Sacrum R lateral border Palpation Findings Tenderness PT-OP-K Range of Motion Start: 04/16/22 18:30 Freq: Status: Active Protocol: Document 04/20/22 10:42 LRN (Rec: 04/20/22 11:25 LRN [id number]) Lumbar Spine Range of Motion Lumbar Spine Active Degrees Testing Position Standing Flexion 80 Extension 15 Rotation Left 15 Rotation Right 5 Lateral Flexion Left 10 Lateral Flexion Right 7 ROM Limitations Soft Tissue Tightness Comments Flex is 80/15 Ext is 15/5 Hip Goniometric Range of Motion Hip Right Passive Testing Position Supine Straight Leg Raise 80 Internal Rotation 20 External Rotation 50 Left Passive Testing Position Supine Straight Leg Raise 60 Internal Rotation 20 External Rotation 50 PT-OP-L Special Tests Start: 04/16/22 18:30 Freq: Status: Active Protocol: Document 04/20/22 10:42 LRN (Rec: 04/20/22 11:25 LRN [id number]) Special Tests Lumbar Spine Special Tests Nickolas Test Results + bilaterally Straight Leg Raise Test Results 65 L, 80 R Standing Flexion Test Results negative Vertical Spine Loading Test Results negative PT-OP-M Strength Start: 04/16/22 18:30 Freq: Status: Active Protocol: Document 04/20/22 10:42 LRN (Rec: 04/20/22 11:25 LRN [id number]) Hip Strength Hip Manual Muscle Testing Right Extension (S1) 5 Normal Comments Pain in LB with hip Ext testing Left Extension (S1) 5 Normal PT-OP-Q Treatments Start: 04/16/22 18:30 Freq: Status: Active Protocol: Document 05/04/22 09:50 LRN (Rec: 05/04/22 10:32 LRN [id number]) Therapeutic Exercises Supine Exercises Hamstring/LE Neural stretch Supine Exercise Name Hamstring/LE Neural stretch Side bilateral Reps/Minutes 2' each (10SH stretchf/b 10 active ankle p x 3 sets) Comments Extra time for training Fig 4 stretch Supine Exercise Name Fig 4 stretch Side bilateral Reps/Minutes 3' Bridge w/o crunch Supine Exercise Name Bridge Reps/Minutes 15x Comments cues for glute squeeze, slow eccentric Piriformis Supine Exercise Name Piriformis Side bilateral Reps/Minutes Hold 10 breaths (1 breath = 32 secs) Comments cues for relaxed neck Sidelying Exercises Open Book stretch Sidelying Exercise Name added to HEP Side bilateral Comments Cuing to keep painfree motion Other Exercises Cat/Cow Other Exercise Name Cat/Cow Reps/Minutes 10x Comments Cuing to flex at L/S vs T/S with combined head mvmt Child's Pose Other Exercise Name Child's Pose Reps/Minutes Hold 10 breaths (1 breath = 32 secs) Gait Training Gait Activity Gait education Description Posture in L tilt, decreased wgt shift R on stance, R LE in ER Level of Assistance v cuing Surface Firm/level Distance/Duration 50'x 6 Treatment Focus Improving RLE positioning by keeping toes forward. Self-Care/Home Management Treatment Education Patient Education Home Exercise Program Activities Self-Care/Home Management Activities Issued HEP: Fig 4 and Piriformis stretch in 2 different positions. PT-OP-T Assessment and Plan Start: 04/16/22 18:30 Freq: Status: Active Protocol: Document 05/04/22 09:50 LRN (Rec: 05/04/22 10:32 LRN [id number]) Physical Therapy Assessment Goals Three Impairment R hip>anterior thigh pain rated 4-7/10, L hip pain rated 1/10. Short Term Goal (STG) Educate pt in proper sitting and standing posture using external supports as needed. STG Duration 04/27/22 (04/22/22: MET GOAL) Fpc Goal (LTG) Decrease R hip/anterior thigh pain in order to reduce need for Tylenol nightly before bedtime. LTG Duration 07/13/22 Two Impairment Reduce back pain Impairment Back pain rated 3/10 (R worse than L), interrupting ability to sleep at night. Short Term Goal (STG) Pt will be educated in proper sleep posturing to reduce onset of back pain. STG Duration 04/21/22 (04/22/22: MET GOAL) Hydrologic Engineer Goal (LTG) Decrease back pain to a level to relieve the need for wearing the back brace LTG Duration 07/13/22 One Impairment Lacks appropriate self care HEP. Short Term Goal (STG) Improve L PSLR and normalize trunk posture (eliminate L lateral shift) with self care HEP. STG Duration 05/07/22 Fpc Goal (LTG) Pt will be independent in a self care HEP of trunk ( improve rot R>L, & SB R>L) and hip mobility (improve Ilipsoas mobility), and hip strength as appropriate. 04/26/22: Added to HEP: Open Book stretch, Thread the Needle, hooklying Lower Trapezius push down - HO given . LTG Duration 07/13/22 Assessment Summary Assessment Pt with mechanical dysfunction of the lumbar spine with a L lateral trunk shift and lordosis with pelvis in posterior tilt and gait with minimal R hip shift on stance phase. He shows improved slow ECC gluteal control with bridging, indicating improved gluteal strength. Pt has been overstretching with Piriformis and Hamstring stretch, causing increased L anterior thigh pain. Pt able to sleep on R side and back, but L side is painful. Physical Therapy Plan Frequency and Duration Frequency of Treatment 2x/Week Duration of treatment (weeks) 12 Plan of Care Start Date 04/20/22 Plan of Care End Date 07/13/22 Next Visit Focus/Plan Next Note Type Treatment Note Next Visit Plan Next: Gait training, and assess for changes in nighttime positioning for greater comfort. Consider photo or mirror w/homero line for pt's posture. POC: Discharge before pt's ureterectomy scheduled for 05/25/22. Review and issue list of his HEP, minimizing trunk flex strain and with proper form w/transfers & nighttime sleep position. HEP: correction for L lateral trunk shift and L PSLR stretch (recheck RLE). Assess Hip/core strength and issue ex's for core/pelvic stability and hip strengthening as needed. Ther Ex & HEP of trunk ( improve rot R>L, & SB R>L) and hip mobility (improve Ilipsoas mobility). Modalities of ice/heat only due to Cancer ongoing history.
--- NOTE | 2022-05-07 16:53 | PT.OTN ---
Current Diagnoses Postural kyphosis, site unspecified (05/07/22) Low back pain, unspecified (05/07/22) Physical Therapy Treatment Note PT-OP-A Visit Information Start: 04/16/22 18:30 Freq: Status: Active Protocol: Document 05/07/22 15:14 NBM (Rec: 05/07/22 16:45 NBM [id number]) Out-Patient Physical Therapy Visit Information Visit Information Visit Type Treatment Note Visit Start Time 15:15 Visit Stop Time 16:10 Total Visit Minutes 55 Visit Number 5 Number of WHEEL TRUER Visits 1 Precautions Precautions Modalities of ice/heat only due to Cancer ongoing history. 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 Kidney removed 01/2013. Enlarged prostate. PT-OP-B Current Condition Start: 04/16/22 18:30 Freq: Status: Active Protocol: Document 04/20/22 10:42 LRN (Rec: 04/20/22 11:25 LRN [id number]) Current Condition History of Current Condition Onset Date 6 weeks ago Current Complaints Back (R>L) and R hip pain. History of Current Condition Insidious onset 6 weeks ago, 1 month ago took an RV trip and made pain worse. Just started Amitriptyline for scotum pain which makes him sleepy. Prior Treatments and Tests None. 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 Future Testing and Treatments Planned none. Treatment Goals Patient/Caregiver Goals Pt goal with therapy: -Reduce the back pain to relieve the need for wearing the back brace, and -Reduce R hip pain into the anterior thigh in order to reduce need for Tylenol daily at night before bed (used to help sleep). 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 Medications for blood pressure and urine flow. Current Functional Impairments (Reported) Functional Limitations- ADL's Must wear a soft back brace to sit > 1/2 hr. Wears the back brace daily except when on feet and walking, doesn't need . Functional Limitations- Other Must wear soft brace to sit in his primary chair for >30 minutes. 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 Kidney removed 2012. PT-OP-C Subjective Start: 04/16/22 18:30 Freq: Status: Active Protocol: Document 05/07/22 15:14 NBM (Rec: 05/07/22 16:45 NBM [id number]) OP-PT Subjective Patient Comments Patient Comments Pt reports his sciatica has been bothering him. He went on a walk this morning as he does every day, and He had sciatica pain down his R hip as he was walking. It felt like I was dragging my right leg behind me for the last 1.5 -2 mi. He had a R hamstring cramp yesterday and ice helped . PT-OP-H Neuro Start: 04/16/22 18:30 Freq: Status: Active Protocol: Document 04/20/22 10:42 LRN (Rec: 04/20/22 11:25 LRN [id number]) Sensation Evaluation Gross Sensation Gross Sensation WNL PT-OP-J Posture/Palpation/Skin Start: 04/16/22 18:30 Freq: Status: Active Protocol: Document 04/20/22 10:42 LRN (Rec: 04/20/22 11:25 LRN [id number]) Posture Evaluation Position Standing T-Spine Posture Increased Kyphosis L-Spine Posture Increased Lordosis,Shifted Left Shoulder Posture (R) Elevated Scapula Posture (L) Elevated Pelvis Posture Neutral Palpation Assessment Location PSIS Palpation Location R PSIS Palpation Findings Tenderness Palpation Details Sleeping on L side caused in R PSIS that radiated to anterior R thigh Low Back Palpation Location Sacrum R lateral border Palpation Findings Tenderness PT-OP-K Range of Motion Start: 04/16/22 18:30 Freq: Status: Active Protocol: Document 04/20/22 10:42 LRN (Rec: 04/20/22 11:25 LRN [id number]) Lumbar Spine Range of Motion Lumbar Spine Active Degrees Testing Position Standing Flexion 80 Extension 15 Rotation Left 15 Rotation Right 5 Lateral Flexion Left 10 Lateral Flexion Right 7 ROM Limitations Soft Tissue Tightness Comments Flex is 80/15 Ext is 15/5 Hip Goniometric Range of Motion Hip Right Passive Testing Position Supine Straight Leg Raise 80 Internal Rotation 20 External Rotation 50 Left Passive Testing Position Supine Straight Leg Raise 60 Internal Rotation 20 External Rotation 50 PT-OP-L Special Tests Start: 04/16/22 18:30 Freq: Status: Active Protocol: Document 04/20/22 10:42 LRN (Rec: 04/20/22 11:25 LRN [id number]) Special Tests Lumbar Spine Special Tests Nickolas Test Results + bilaterally Straight Leg Raise Test Results 65 L, 80 R Standing Flexion Test Results negative Vertical Spine Loading Test Results negative PT-OP-M Strength Start: 04/16/22 18:30 Freq: Status: Active Protocol: Document 04/20/22 10:42 LRN (Rec: 04/20/22 11:25 LRN [id number]) Hip Strength Hip Manual Muscle Testing Right Extension (S1) 5 Normal Comments Pain in LB with hip Ext testing Left Extension (S1) 5 Normal PT-OP-Q Treatments Start: 04/16/22 18:30 Freq: Status: Active Protocol: Document 05/07/22 15:14 NBM (Rec: 05/07/22 16:45 NBM [id number]) Therapeutic Exercises Supine Exercises LTR Supine Exercise Name Lower trunk rotation Side bilateral Comments ROM pain-limited by R SI - pain-free range improves w/ PPT and TrA PPT Supine Exercise Name 1. PPT 2. PPT w/TRA (added to HEP) 3. w/ BKFO Side bilateral Reps/Minutes PPT x 5, w/TrA 5 x 5 SH, w/ BKFO x10 ea Comments improved R hip symptoms Hamstring/LE Neural stretch Supine Exercise Name Hamstring/LE Neural stretch Side bilateral Equipment Used long towel Reps/Minutes 2' each (10SH stretchf/b 10 active ankle p x 3 sets) Comments w/ towel behind thigh to reduce upper body tension Lower trapezius Supine Exercise Name slide palms down sides, then gentle press into mat Side bilateral Comments w/ bridging IT Band stretch Supine Exercise Name IT Band stretch w/strap Side bilateral Reps/Minutes Hold 10 breaths (1 breath = 32 secs) Comments added to HEP Happy Baby Pose Supine Exercise Name Happy Baby Pose Reps/Minutes Hold 10 breaths x 2 (1 breath = 32 secs) Comments Discussed today - added to HEP Fig 4 stretch Supine Exercise Name Fig 4 stretch Side bilateral Reps/Minutes 3' Bridge w/o crunch Supine Exercise Name Bridge - added to HEP Reps/Minutes 15x Comments cues for glute squeeze, good carry overover for controlled ecc. Piriformis Supine Exercise Name Piriformis Side bilateral Reps/Minutes Hold 10 breaths (1 breath = 32 secs) Comments cues for relaxed neck Sidelying Exercises Open Book stretch Side bilateral Comments Cues for scap setting, TrA Sitting Exercises Scap retraction Reps/Minutes x5 Comments cue to hold pencil between shoulder blades Standing Exercises PPT at wall Standing Exercise Name posterior pelvic tilt Reps/Minutes 3 min Comments max cues initially; R hip pain improves. Standing full body stretch Standing Exercise Name Full body stretch: reaching to ceiling Reps/Minutes Hold 20 breaths (1 breath = 32 secs) Comments cues to keep shoulders down, no hyperextension - added to HEP Gait Training Gait Activity Gait education Description Posture in L tilt, decreased wgt shift R on stance, R LE in ER Level of Assistance v cuing Surface Firm/level Distance/Duration 2x20 ft Comments Slight RLE ER which increases at heel strike, cues for toes fwd - improved self-awareness Self-Care/Home Management Treatment Education Patient Education Body Mechanics,Home Exercise Program,Pain Management, Posture Other Education Extra time for education of core anatomy and activation of Transverse abdominus, breathholding and posture. Issued HEP w/ cues for PPT, TrA, breathing and scapular setting: PPT, Bridging, IT Band stretch, Happy Baby, and Overhead Reach stretch - HO given. PT-OP-T Assessment and Plan Start: 04/16/22 18:30 Freq: Status: Active Protocol: Document 05/07/22 15:14 [facility] (Rec: 05/07/22 16:45 [facility] [id number]) Physical Therapy Assessment Goals Three Impairment R hip>anterior thigh pain rated 4-7/10, L hip pain rated 1/10. Short Term Goal (STG) Educate pt in proper sitting and standing posture using external supports as needed. STG Duration 04/27/22 (04/22/22: MET GOAL) Fdc Goal (LTG) Decrease R hip/anterior thigh pain in order to reduce need for Tylenol nightly before bedtime. LTG Duration 07/13/22 Two Impairment Reduce back pain Impairment Back pain rated 3/10 (R worse than L), interrupting ability to sleep at night. Short Term Goal (STG) Pt will be educated in proper sleep posturing to reduce onset of back pain. STG Duration 04/21/22 (04/22/22: MET GOAL) Fdc Goal (LTG) Decrease back pain to a level to relieve the need for wearing the back brace LTG Duration 07/13/22 One Impairment Lacks appropriate self care HEP. Short Term Goal (STG) Improve L PSLR and normalize trunk posture (eliminate L lateral shift) with self care HEP. STG Duration 05/07/22 Fdc Goal (LTG) Pt will be independent in a self care HEP of trunk ( improve rot R>L, & SB R>L) and hip mobility (improve Ilipsoas mobility), and hip strength as appropriate. 04/26/22: Added to HEP: Open Book stretch, Thread the Needle, hooklying Lower Trapezius push down - HO given . LTG Duration 07/13/22 Assessment Summary Assessment Treatment focus on HEP review and progressing core stability . Modified hamstring stretch w / long towel behind thigh instead of use of UE to decrease upper body tension. Pt requires max cues initially for posterior pelvic tilt and Transverse abdominus activation, for maintaining scapular setting w/ UE mobility, and pt hyperextends lumbar spine to improve upright posture - self- awareness and ability to self- correct improves w/ education, tactile and visual cues by end of session. Pt reports R hip pain relief w/ supine PPT. Pt's R hip pain EOS 3/10. Issued HEP w/ cues for PPT, TrA, breathing and scapular setting: PPT, Bridging, IT Band stretch, Happy Baby, and Overhead Reach stretch - HO given. Pt requires cues for RLE external rotation stance> swing. Physical Therapy Plan Frequency and Duration Frequency of Treatment 2x/Week Duration of treatment (weeks) 12 Plan of Care Start Date 04/20/22 Plan of Care End Date 07/13/22 Therapeutic Interventions Therapeutic Interventions Home Exercise Program,Manual Therapy,Patient/Caregiver Education,Self-Care/Home Management,Soft Tissue Mobilization,Therapeutic Exercises Modalities Cold Pack/Ice Massage,Hot Packs Next Visit Focus/Plan Next Note Type Treatment Note Next Visit Plan Next: Gait training, and assess for changes in nighttime positioning for greater comfort. Consider photo or mirror w/homero line for pt's posture. POC: Discharge before pt's ureterectomy scheduled for 05/25/22. Issue HEP with proper form w/transfers & nighttime sleep position. HEP: correction for L lateral trunk shift and L PSLR stretch (recheck RLE). Assess Hip/core strength and issue ex's for core/pelvic stability and hip strengthening as needed. Ther Ex & HEP of trunk ( improve rot R>L, & SB R>L) and hip mobility (improve Ilipsoas mobility). Modalities of ice/heat only due to Cancer ongoing history.
--- NOTE | 2022-05-19 13:04 | PT.OTN ---
Current Diagnoses Postural kyphosis, site unspecified (05/19/22) Low back pain, unspecified (05/19/22) Physical Therapy Treatment Note PT-OP-A Visit Information Start: 04/16/22 18:30 Freq: Status: Active Protocol: Document 05/19/22 12:20 SP (Rec: 05/19/22 13:05 SP [id number]) Out-Patient Physical Therapy Visit Information Visit Information Visit Type Treatment Note Visit Note SPTA Bob assisted ANTHROPOLOGICAL LINGUIST Sarah and pt duirng instruction HEP review to pt while under direct supervision and guidence. Visit Start Time 12:21 Visit Stop Time 13:04 Total Visit Minutes 42 Visit Number 6 Number of ANTHROPOLOGICAL LINGUIST Visits 2 Precautions Precautions Modalities of ice/heat only due to Cancer ongoing history. 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 Kidney removed 01/2013. Enlarged prostate. PT-OP-B Current Condition Start: 04/16/22 18:30 Freq: Status: Active Protocol: Document 04/20/22 10:42 LRN (Rec: 04/20/22 11:25 LRN [id number]) Current Condition History of Current Condition Onset Date 6 weeks ago Current Complaints Back (R>L) and R hip pain. History of Current Condition Insidious onset 6 weeks ago, 1 month ago took an RV trip and made pain worse. Just started Amitriptyline for scotum pain which makes him sleepy. Prior Treatments and Tests None. 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 Future Testing and Treatments Planned none. Treatment Goals Patient/Caregiver Goals Pt goal with therapy: -Reduce the back pain to relieve the need for wearing the back brace, and -Reduce R hip pain into the anterior thigh in order to reduce need for Tylenol daily at night before bed (used to help sleep). 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 Medications for blood pressure and urine flow. Current Functional Impairments (Reported) Functional Limitations- ADL's Must wear a soft back brace to sit > 1/2 hr. Wears the back brace daily except when on feet and walking, doesn't need . Functional Limitations- Other Must wear soft brace to sit in his primary chair for >30 minutes. Personal Factors Other Personal Factors That May Effect Allergy to tape, Controlled Therapy/Recovery HBP, Bladder cancer removals and currently on list to have mass removed from the R ureter (Removing the entire ureter in [place], believed cancerous). Kidney removed 2012. PT-OP-C Subjective Start: 04/16/22 18:30 Freq: Status: Active Protocol: Document 05/19/22 12:20 SP (Rec: 05/19/22 13:05 SP [id number]) OP-PT Subjective Patient Comments Patient Comments Pt reported had a blood clot on 05/09 ended up in ER and Dr Hand ordered US further testing, put on blood thinners for about 2 days. His urectomy procedure postponed 3 -[address] Hand stated to pt cleared for PT. He jsut started his HEP recently after cleared from . PT-OP-H Neuro Start: 04/16/22 18:30 Freq: Status: Active Protocol: Document 04/20/22 10:42 LRN (Rec: 04/20/22 11:25 LRN [id number]) Sensation Evaluation Gross Sensation Gross Sensation WNL PT-OP-J Posture/Palpation/Skin Start: 04/16/22 18:30 Freq: Status: Active Protocol: Document 04/20/22 10:42 LRN (Rec: 04/20/22 11:25 LRN [id number]) Posture Evaluation Position Standing T-Spine Posture Increased Kyphosis L-Spine Posture Increased Lordosis,Shifted Left Shoulder Posture (R) Elevated Scapula Posture (L) Elevated Pelvis Posture Neutral Palpation Assessment Location PSIS Palpation Location R PSIS Palpation Findings Tenderness Palpation Details Sleeping on L side caused in R PSIS that radiated to anterior R thigh Low Back Palpation Location Sacrum R lateral border Palpation Findings Tenderness PT-OP-K Range of Motion Start: 04/16/22 18:30 Freq: Status: Active Protocol: Document 04/20/22 10:42 LRN (Rec: 04/20/22 11:25 LRN [id number]) Lumbar Spine Range of Motion Lumbar Spine Active Degrees Testing Position Standing Flexion 80 Extension 15 Rotation Left 15 Rotation Right 5 Lateral Flexion Left 10 Lateral Flexion Right 7 ROM Limitations Soft Tissue Tightness Comments Flex is 80/15 Ext is 15/5 Hip Goniometric Range of Motion Hip Right Passive Testing Position Supine Straight Leg Raise 80 Internal Rotation 20 External Rotation 50 Left Passive Testing Position Supine Straight Leg Raise 60 Internal Rotation 20 External Rotation 50 PT-OP-L Special Tests Start: 04/16/22 18:30 Freq: Status: Active Protocol: Document 04/20/22 10:42 LRN (Rec: 04/20/22 11:25 LRN [id number]) Special Tests Lumbar Spine Special Tests Nickolas Test Results + bilaterally Straight Leg Raise Test Results 65 L, 80 R Standing Flexion Test Results negative Vertical Spine Loading Test Results negative PT-OP-M Strength Start: 04/16/22 18:30 Freq: Status: Active Protocol: Document 04/20/22 10:42 LRN (Rec: 04/20/22 11:25 LRN [id number]) Hip Strength Hip Manual Muscle Testing Right Extension (S1) 5 Normal Comments Pain in LB with hip Ext testing Left Extension (S1) 5 Normal PT-OP-Q Treatments Start: 04/16/22 18:30 Freq: Status: Active Protocol: Document 05/19/22 12:20 SP (Rec: 05/19/22 13:05 SP [id number]) Therapeutic Exercises Supine Exercises LTR Supine Exercise Name Lower trunk rotation Side bilateral Comments good form, painfree (stated went away with blood clot) PPT Supine Exercise Name 1. PPT 2. PPT w/TRA 3. w/ BKFO Side bilateral Resistance AROM> TB #1 loop at knees Reps/Minutes PPT x 5, w/TrA 5 x 5 SH, w/ BKFO x10 ea Comments improved R hip symptoms Hamstring/LE Neural stretch Supine Exercise Name Hamstring/LE Neural stretch Side bilateral Reps/Minutes 2' each (10SH stretchf/b 10 active ankle p x 3 sets) Comments good form and no UT tension Lower trapezius Supine Exercise Name slide palms down sides, vs gentle press into mat Side bilateral Comments cued arm lenghtener and chest liftw/ bridging IT Band stretch Supine Exercise Name IT Band stretch w/strap- challenging DC for home Side bilateral Equipment Used Very tight HS, provided manual stretch Reps/Minutes Hold 10 breaths (1 breath = 32 secs) Comments in PT Only Happy Baby Pose Supine Exercise Name Happy Baby Pose Reps/Minutes Hold 10 breaths x 2 (1 breath = 32 secs) Comments reviewed HEP- discussed change HO to hold 10 breath not 2-3 min Therapeutic Activity Therapeutic Activity sleep posture Name supine, sidelying Reps/Minutes 5 Comments Extra time spent use pillows in sidelyingbetween BLEs, front BUEs for spinal/postural alignment with good feedback relaxed support. bed mobility Name sit<>SL<> supine Reps/Minutes 5 Comments Extra time spent Instruction TA use, LR technique and BUE support tranitioning Gait Training Gait Activity Gait education Description Posture in L tilt, decreased wgt shift R on stance, R LE in ER Device Used use trek pole in LUE Level of Assistance v cuing Surface Firm/level Distance/Duration 2x20 ft Comments Continued slight RLE ER which increases at heel strike, cues for toes fwd - improved self- awareness Adjusted height in LUE, posturing and arm swing PT-OP-T Assessment and Plan Start: 04/16/22 18:30 Freq: Status: Active Protocol: Document 05/19/22 12:20 SP (Rec: 05/19/22 13:05 SP [id number]) Physical Therapy Assessment Goals Three Impairment R hip>anterior thigh pain rated 4-7/10, L hip pain rated 1/10. Short Term Goal (STG) Educate pt in proper sitting and standing posture using external supports as needed. STG Duration 04/27/22 (04/22/22: MET GOAL) Senior Living Goal (LTG) Decrease R hip/anterior thigh pain in order to reduce need for Tylenol nightly before bedtime. 05/19/22: progressing Tylenol 500 mg 3-4x day and before bed for pain control. Dr Hand reassured is ok. LTG Duration 07/13/22 progressing 05/19/22 Two Impairment Reduce back pain Impairment Back pain rated 3/10 (R worse than L), interrupting ability to sleep at night. Short Term Goal (STG) Pt will be educated in proper sleep posturing to reduce onset of back pain. STG Duration 04/21/22 (04/22/22: MET GOAL) Senior Living Goal (LTG) Decrease back pain to a level to relieve the need for wearing the back brace LTG Duration 07/13/22 One Impairment Lacks appropriate self care HEP. Short Term Goal (STG) Improve L PSLR and normalize trunk posture (eliminate L lateral shift) with self care HEP. STG Duration 05/07/22 Senior Living Goal (LTG) Pt will be independent in a self care HEP of trunk ( improve rot R>L, & SB R>L) and hip mobility (improve Ilipsoas mobility), and hip strength as appropriate. 04/26/22: Added to HEP: Open Book stretch, Thread the Needle, hooklying Lower Trapezius push down - HO given . LTG Duration 07/13/22 Assessment Summary Assessment Pt improved LR instruction technique for good mechanics pre for future surgical procedure. ANTHROPOLOGICAL LINGUIST chart reviewed Dr Hand documentation for safety mobiltiy post blood clot in past 2 weeks, cleared for continue activity as normal. Tx focused on HEP review due to not performing since last tx per instructions for safety circulation until blood clot resolved with med assist. Pt good response to tx. Adjusted height trek pole using as SPC support. Improved trunk alignment gait leaving. Physical Therapy Plan Frequency and Duration Frequency of Treatment 2x/Week Duration of treatment (weeks) 12 Plan of Care Start Date 04/20/22 Plan of Care End Date 07/13/22 Therapeutic Interventions Therapeutic Interventions Home Exercise Program,Manual Therapy,Patient/Caregiver Education,Self-Care/Home Management,Soft Tissue Mobilization,Therapeutic Exercises Modalities Cold Pack/Ice Massage,Hot Packs Next Visit Focus/Plan Next Note Type Treatment Note Next Visit Plan Next: Gait training, and assess for changes in nighttime positioning for greater comfort. Consider photo or mirror w/homero line for pt's posture. POC: Discharge before pt's ureterectomy scheduled for 05/25/22. Issue HEP with proper form w/transfers & nighttime sleep position. HEP: correction for L lateral trunk shift and L PSLR stretch (recheck RLE). Assess Hip/core strength and issue ex's for core/pelvic stability and hip strengthening as needed. Ther Ex & HEP of trunk ( improve rot R>L, & SB R>L) and hip mobility (improve Ilipsoas mobility). Modalities of ice/heat only due to Cancer ongoing history.
--- NOTE | 2022-05-21 13:48 | PT.OTN ---
Current Diagnoses Postural kyphosis, site unspecified (05/21/22) Low back pain, unspecified (05/21/22) Physical Therapy Treatment Note PT-OP-A Visit Information Start: 04/16/22 18:30 Freq: Status: Active Protocol: Document 05/21/22 13:10 TS (Rec: 05/21/22 14:22 TS [id number]) Out-Patient Physical Therapy Visit Information Visit Information Visit Type Treatment Note Visit Note SPTA Bob lead tx instruction ther ex and review HEP to pt while under direct supervision and guidence of SECOND WORKER Luis. Visit Start Time 13:05 Visit Stop Time 13:48 Total Visit Minutes 43 Visit Number 7 Number of SECOND WORKER Visits 3 Evaluation Information Evaluation Date 04/20/22 Precautions Precautions Modalities of ice/heat only due to Cancer ongoing history. 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 Kidney removed 01/2013. Enlarged prostate. PT-OP-B Current Condition Start: 04/16/22 18:30 Freq: Status: Active Protocol: Document 04/20/22 10:42 LRN (Rec: 04/20/22 11:25 LRN [id number]) Current Condition History of Current Condition Onset Date 6 weeks ago Current Complaints Back (R>L) and R hip pain. History of Current Condition Insidious onset 6 weeks ago, 1 month ago took an RV trip and made pain worse. Just started Amitriptyline for scotum pain which makes him sleepy. Prior Treatments and Tests None. 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 Future Testing and Treatments Planned none. Treatment Goals Patient/Caregiver Goals Pt goal with therapy: -Reduce the back pain to relieve the need for wearing the back brace, and -Reduce R hip pain into the anterior thigh in order to reduce need for Tylenol daily at night before bed (used to help sleep). 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 Medications for blood pressure and urine flow. Current Functional Impairments (Reported) Functional Limitations- ADL's Must wear a soft back brace to sit > 1/2 hr. Wears the back brace daily except when on feet and walking, doesn't need . Functional Limitations- Other Must wear soft brace to sit in his primary chair for >30 minutes. Personal Factors Other Personal Factors That May Effect Allergy to tape, Controlled Therapy/Recovery HBP, Bladder cancer removals and currently on list to have mass removed from the R ureter (Removing the entire ureter in [place], believed cancerous). Kidney removed 2012. PT-OP-C Subjective Start: 04/16/22 18:30 Freq: Status: Active Protocol: Document 05/21/22 13:10 TS (Rec: 05/21/22 14:22 TS [id number]) OP-PT Subjective Patient Comments Patient Comments Pt reported he is compliant with his HEP. He is still having some pn in his R hip and back. He tries not to sit too long in his recliner because it causes him some discomfort. Hasn't been using back brace because he is not driving currently. PT-OP-H Neuro Start: 04/16/22 18:30 Freq: Status: Active Protocol: Document 04/20/22 10:42 LRN (Rec: 04/20/22 11:25 LRN [id number]) Sensation Evaluation Gross Sensation Gross Sensation WNL PT-OP-J Posture/Palpation/Skin Start: 04/16/22 18:30 Freq: Status: Active Protocol: Document 04/20/22 10:42 LRN (Rec: 04/20/22 11:25 LRN [id number]) Posture Evaluation Position Standing T-Spine Posture Increased Kyphosis L-Spine Posture Increased Lordosis,Shifted Left Shoulder Posture (R) Elevated Scapula Posture (L) Elevated Pelvis Posture Neutral Palpation Assessment Location PSIS Palpation Location R PSIS Palpation Findings Tenderness Palpation Details Sleeping on L side caused in R PSIS that radiated to anterior R thigh Low Back Palpation Location Sacrum R lateral border Palpation Findings Tenderness PT-OP-K Range of Motion Start: 04/16/22 18:30 Freq: Status: Active Protocol: Document 04/20/22 10:42 LRN (Rec: 04/20/22 11:25 LRN [id number]) Lumbar Spine Range of Motion Lumbar Spine Active Degrees Testing Position Standing Flexion 80 Extension 15 Rotation Left 15 Rotation Right 5 Lateral Flexion Left 10 Lateral Flexion Right 7 ROM Limitations Soft Tissue Tightness Comments Flex is 80/15 Ext is 15/5 Hip Goniometric Range of Motion Hip Right Passive Testing Position Supine Straight Leg Raise 80 Internal Rotation 20 External Rotation 50 Left Passive Testing Position Supine Straight Leg Raise 60 Internal Rotation 20 External Rotation 50 PT-OP-L Special Tests Start: 04/16/22 18:30 Freq: Status: Active Protocol: Document 04/20/22 10:42 LRN (Rec: 04/20/22 11:25 LRN [id number]) Special Tests Lumbar Spine Special Tests Nickolas Test Results + bilaterally Straight Leg Raise Test Results 65 L, 80 R Standing Flexion Test Results negative Vertical Spine Loading Test Results negative PT-OP-M Strength Start: 04/16/22 18:30 Freq: Status: Active Protocol: Document 04/20/22 10:42 LRN (Rec: 04/20/22 11:25 LRN [id number]) Hip Strength Hip Manual Muscle Testing Right Extension (S1) 5 Normal Comments Pain in LB with hip Ext testing Left Extension (S1) 5 Normal PT-OP-Q Treatments Start: 04/16/22 18:30 Freq: Status: Active Protocol: Document 05/21/22 13:10 TS (Rec: 05/21/22 14:22 TS [id number]) Therapeutic Exercises Supine Exercises Ball crunch Supine Exercise Name Ball UE press into tball on abdomen w/ 3 sec hold Equipment Used EX ball 65cm Reps/Minutes 1x10 Comments Cues for sequencing, PPT Hamstring/LE Neural stretch Supine Exercise Name Hamstring/LE Neural stretch Side bilateral Reps/Minutes 2' each (10SH stretchf/b 10 active ankle p x 3 sets) Comments good form and no UT tension IT Band stretch Supine Exercise Name IT Band stretch w/strap Side bilateral Equipment Used Gait belt Reps/Minutes Hold 10 breaths (1 breath = 32 secs) Comments good form, understanding and stretch response Sitting Exercises STS Sitting Exercise Name STS with trek pole support. Equipment Used Chair Reps/Minutes 1x5 Comments Added to HEP, pt states good challenge Standing Exercises Step Outs Standing Exercise Name Step outs with TB Side bilateral Resistance Lvl 2 Equipment Used TB Reps/Minutes 1x10 each side Comments Good eccentric control. RLE fatigues in standing TKE Side right Resistance Lvl2 Equipment Used TB Reps/Minutes 1x10 Comments PT reports feels like a good exercise, Added to HEP Woodchops Standing Exercise Name Wood chops pt anchoring TB Side bilateral Resistance Lvl 2 Equipment Used TB Reps/Minutes 1x10 Comments cues for core activation, Poor RLE endurance Self-Care/Home Management Treatment Education Patient Education Body Mechanics,Home Exercise Program,Pain Management, Posture Other Education Initiated: STS, resisted TKE, isometric core step outs to HEP. PT-OP-T Assessment and Plan Start: 04/16/22 18:30 Freq: Status: Active Protocol: Document 05/21/22 13:10 TS (Rec: 05/21/22 14:22 TS [id number]) Physical Therapy Assessment Goals Three Impairment R hip>anterior thigh pain rated 4-7/10, L hip pain rated 1/10. Short Term Goal (STG) Educate pt in proper sitting and standing posture using external supports as needed. STG Duration 04/27/22 (04/22/22: MET GOAL) Human Resources Records Clerk Goal (LTG) Decrease R hip/anterior thigh pain in order to reduce need for Tylenol nightly before bedtime. 05/19/22: progressing Tylenol 500 mg 3-4x day and before bed for pain control. Dr Hand reassured is ok. LTG Duration 07/13/22 progressing 05/19/22 Two Impairment Reduce back pain Impairment Back pain rated 3/10 (R worse than L), interrupting ability to sleep at night. Short Term Goal (STG) Pt will be educated in proper sleep posturing to reduce onset of back pain. STG Duration 04/21/22 (04/22/22: MET GOAL) Human Resources Records Clerk Goal (LTG) Decrease back pain to a level to relieve the need for wearing the back brace 05/21/22: Pt isn't wearing back brace currently due to not driving long distances. LTG Duration 07/13/22 One Impairment Lacks appropriate self care HEP. Short Term Goal (STG) Improve L PSLR and normalize trunk posture (eliminate L lateral shift) with self care HEP. STG Duration 05/07/22 Human Resources Records Clerk Goal (LTG) Pt will be independent in a self care HEP of trunk ( improve rot R>L, & SB R>L) and hip mobility (improve Ilipsoas mobility), and hip strength as appropriate. 04/26/22: Added to HEP: Open Book stretch, Thread the Needle, hooklying Lower Trapezius push down - HO given . LTG Duration 07/13/22 Assessment Summary Assessment Pt has decreased strength and endurance in RLE during standing ex for todays session , requring rest breaks in between exercises. He demonstrates good carryover of his HEP and stretching exercises. He will benefit from continued intervention to increase strength, flexibilty and activity tolerance on RLE . Physical Therapy Plan Frequency and Duration Frequency of Treatment 2x/Week Duration of treatment (weeks) 12 Plan of Care Start Date 04/20/22 Plan of Care End Date 07/13/22 Therapeutic Interventions Therapeutic Interventions Home Exercise Program,Manual Therapy,Patient/Caregiver Education,Self-Care/Home Management,Soft Tissue Mobilization,Therapeutic Exercises Modalities Cold Pack/Ice Massage,Hot Packs Next Visit Focus/Plan Next Note Type Treatment Note Next Visit Plan 11/30 with PT in 2 treatments due for a progress note. HEP: correction for L lateral trunk shift and L PSLR stretch (recheck RLE). Assess Hip/core strength and issue ex's for core/pelvic stability and hip strengthening as needed. Ther Ex & HEP of trunk ( improve rot R>L, & SB R>L) and hip mobility (improve Ilipsoas mobility). Modalities of ice/heat only due to Cancer ongoing history.
--- NOTE | 2022-05-24 09:48 | PT.OTN ---
Current Diagnoses Postural kyphosis, site unspecified (05/24/22) Low back pain, unspecified (05/24/22) Physical Therapy Treatment Note PT-OP-A Visit Information Start: 04/16/22 18:30 Freq: Status: Active Protocol: Document 05/24/22 08:57 NBM (Rec: 05/24/22 09:48 NBM [id number]) Out-Patient Physical Therapy Visit Information Visit Information Visit Type Treatment Note Visit Start Time 09:00 Visit Stop Time 09:44 Total Visit Minutes 44 Visit Number 8 Number of CASE AIDE Visits 4 PT-OP-B Current Condition Start: 04/16/22 18:30 Freq: Status: Active Protocol: Document 04/20/22 10:42 LRN (Rec: 04/20/22 11:25 LRN [id number]) Current Condition History of Current Condition Onset Date 6 weeks ago Current Complaints Back (R>L) and R hip pain. History of Current Condition Insidious onset 6 weeks ago, 1 month ago took an RV trip and made pain worse. Just started Amitriptyline for scotum pain which makes him sleepy. Prior Treatments and Tests None. 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 Future Testing and Treatments Planned none. Treatment Goals Patient/Caregiver Goals Pt goal with therapy: -Reduce the back pain to relieve the need for wearing the back brace, and -Reduce R hip pain into the anterior thigh in order to reduce need for Tylenol daily at night before bed (used to help sleep). 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 Medications for blood pressure and urine flow. Current Functional Impairments (Reported) Functional Limitations- ADL's Must wear a soft back brace to sit > 1/2 hr. Wears the back brace daily except when on feet and walking, doesn't need . Functional Limitations- Other Must wear soft brace to sit in his primary chair for >30 minutes. 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 Kidney removed 2012. PT-OP-C Subjective Start: 04/16/22 18:30 Freq: Status: Active Protocol: Document 05/24/22 08:57 NBM (Rec: 05/24/22 09:48 NBM [id number]) OP-PT Subjective Patient Comments Patient Comments Pt reports he has R hip pain and low back pain. He had a screen put in for the blood clot in his right leg a week ago last Tuesday and has been doing his exercises 2-3 times a day since. He's walking ~ 3/ 8 mi ea day instead of 2-3 mi/ day he's used to. He's doing a walking program increasing steadily. He's unable to take blood thinners. PT-OP-H Neuro Start: 04/16/22 18:30 Freq: Status: Active Protocol: Document 04/20/22 10:42 LRN (Rec: 04/20/22 11:25 LRN [id number]) Sensation Evaluation Gross Sensation Gross Sensation WNL PT-OP-J Posture/Palpation/Skin Start: 04/16/22 18:30 Freq: Status: Active Protocol: Document 04/20/22 10:42 LRN (Rec: 04/20/22 11:25 LRN [id number]) Posture Evaluation Position Standing T-Spine Posture Increased Kyphosis L-Spine Posture Increased Lordosis,Shifted Left Shoulder Posture (R) Elevated Scapula Posture (L) Elevated Pelvis Posture Neutral Palpation Assessment Location PSIS Palpation Location R PSIS Palpation Findings Tenderness Palpation Details Sleeping on L side caused in R PSIS that radiated to anterior R thigh Low Back Palpation Location Sacrum R lateral border Palpation Findings Tenderness PT-OP-K Range of Motion Start: 04/16/22 18:30 Freq: Status: Active Protocol: Document 04/20/22 10:42 LRN (Rec: 04/20/22 11:25 LRN [id number]) Lumbar Spine Range of Motion Lumbar Spine Active Degrees Testing Position Standing Flexion 80 Extension 15 Rotation Left 15 Rotation Right 5 Lateral Flexion Left 10 Lateral Flexion Right 7 ROM Limitations Soft Tissue Tightness Comments Flex is 80/15 Ext is 15/5 Hip Goniometric Range of Motion Hip Right Passive Testing Position Supine Straight Leg Raise 80 Internal Rotation 20 External Rotation 50 Left Passive Testing Position Supine Straight Leg Raise 60 Internal Rotation 20 External Rotation 50 PT-OP-L Special Tests Start: 04/16/22 18:30 Freq: Status: Active Protocol: Document 04/20/22 10:42 LRN (Rec: 04/20/22 11:25 LRN [id number]) Special Tests Lumbar Spine Special Tests Nickolas Test Results + bilaterally Straight Leg Raise Test Results 65 L, 80 R Standing Flexion Test Results negative Vertical Spine Loading Test Results negative PT-OP-M Strength Start: 04/16/22 18:30 Freq: Status: Active Protocol: Document 04/20/22 10:42 LRN (Rec: 04/20/22 11:25 LRN [id number]) Hip Strength Hip Manual Muscle Testing Right Extension (S1) 5 Normal Comments Pain in LB with hip Ext testing Left Extension (S1) 5 Normal PT-OP-Q Treatments Start: 04/16/22 18:30 Freq: Status: Active Protocol: Document 05/24/22 08:57 NBM (Rec: 05/24/22 09:48 NBM [id number]) Therapeutic Exercises Supine Exercises LTR Supine Exercise Name Lower trunk rotation Side bilateral Comments good form, painfree PPT Supine Exercise Name 1. PPT 2. PPT w/TRA 3. w/ BKFO Side bilateral Resistance AROM> TB #1 loop at knees Reps/Minutes PPT x 5, w/TrA 5 x 5 SH, w/ BKFO x10 ea Comments improved R hip symptoms Hamstring/LE Neural stretch Supine Exercise Name Hamstring/LE Neural stretch Side bilateral Reps/Minutes 2' each (10SH stretchf/b 10 active ankle p x 3 sets) Comments good form and no UT tension IT Band stretch Supine Exercise Name IT Band stretch w/strap Side bilateral Equipment Used Gait belt Reps/Minutes Hold 10 breaths (1 breath = 32 secs) Comments good form, understanding and stretch response Happy Baby Pose Supine Exercise Name Happy Baby Pose Reps/Minutes Hold 10 breaths x 2 (1 breath = 32 secs) Comments reviewed HEP- discussed change HO to hold 10 breath not 2-3 min Fig 4 stretch Supine Exercise Name Fig 4 stretch Side bilateral Reps/Minutes 3' Bridge w/o crunch Supine Exercise Name Bridge - added ball squeeze to HEP Equipment Used blue/white ball Reps/Minutes x5, 10 w/ ball squeeze Comments cues for glute squeeze, good carry overover for controlled ecc. Sitting Exercises STS Sitting Exercise Name STS with trek pole support. Equipment Used Chair Reps/Minutes 1x5 Comments challenged w/ eccentric control right before chair contact Other Exercises Bird Dog Other Exercise Name UE only - added to HEP Side bilateral Reps/Minutes x8 ea Comments pt reports good challenge Thread the Needle Side bilateral Reps/Minutes x10 ea Comments pt reports hasn't been doing - good feedback response Child's Pose Other Exercise Name Child's Pose Reps/Minutes Hold 10 breaths (1 breath = 32 secs) Self-Care/Home Management Treatment Education Patient Education Home Exercise Program Other Education Added ball squeeze to Bridging , Quadruped alternating arm ( for core progression) PT-OP-R Modalities Start: 04/16/22 18:30 Freq: Status: Active Protocol: Document 05/24/22 08:57 NBM (Rec: 05/24/22 09:48 NBM [id number]) Hot Pack/Cold Pack Treatment Cold Pack Location lumbar Patient Position Hooklying Treatment Duration (minutes) 10 Patient Tolerance Good PT-OP-T Assessment and Plan Start: 04/16/22 18:30 Freq: Status: Active Protocol: Document 05/24/22 08:57 NBM (Rec: 05/24/22 09:48 NB [id number]) Physical Therapy Assessment Goals Three Impairment R hip>anterior thigh pain rated 4-7/10, L hip pain rated 1/10. Short Term Goal (STG) Educate pt in proper sitting and standing posture using external supports as needed. STG Duration 04/27/22 (04/22/22: MET GOAL) Mcc Goal (LTG) Decrease R hip/anterior thigh pain in order to reduce need for Tylenol nightly before bedtime. 05/19/22: progressing Tylenol 500 mg 3-4x day and before bed for pain control. Dr Hand reassured is ok. LTG Duration 07/13/22 progressing 05/19/22 Two Impairment Reduce back pain Impairment Back pain rated 3/10 (R worse than L), interrupting ability to sleep at night. Short Term Goal (STG) Pt will be educated in proper sleep posturing to reduce onset of back pain. STG Duration 04/21/22 (04/22/22: MET GOAL) Drilling Manager Goal (LTG) Decrease back pain to a level to relieve the need for wearing the back brace 05/21/22: Pt isn't wearing back brace currently due to not driving long distances. LTG Duration 07/13/22 One Impairment Lacks appropriate self care HEP. Short Term Goal (STG) Improve L PSLR and normalize trunk posture (eliminate L lateral shift) with self care HEP. STG Duration 05/07/22 Drilling Manager Goal (LTG) Pt will be independent in a self care HEP of trunk ( improve rot R>L, & SB R>L) and hip mobility (improve Ilipsoas mobility), and hip strength as appropriate. 04/26/22: Added to HEP: Open Book stretch, Thread the Needle, hooklying Lower Trapezius push down - HO given . LTG Duration 07/13/22 Assessment Summary Assessment Pt demonstrates good form with HEP with minimal cueing for breathing and posterior pelvic tilt. Pain relief reported w/ manual. Pt was appropriately challenged with quadruped alternating arm exercise - added to HEP, as well as ball squeeze w/ bridge - HO given. Pt is challenged w/ eccentric control right before chair contact and will benefit from continued skilled therapeutic intervention. Physical Therapy Plan Frequency and Duration Frequency of Treatment 2x/Week Duration of treatment (weeks) 12 Plan of Care Start Date 04/20/22 Plan of Care End Date 07/13/22 Therapeutic Interventions Therapeutic Interventions Home Exercise Program,Manual Therapy,Patient/Caregiver Education,Self-Care/Home Management,Soft Tissue Mobilization,Therapeutic Exercises Modalities Cold Pack/Ice Massage,Hot Packs Next Visit Focus/Plan Next Note Type Treatment Note Next Visit Plan 12/31 with PT in 2 treatments due for a progress note. HEP: correction for L lateral trunk shift and L PSLR stretch (recheck RLE). Assess Hip/core strength and issue ex's for core/pelvic stability and hip strengthening as needed. Ther Ex & HEP of trunk ( improve rot R>L, & SB R>L) and hip mobility (improve Ilipsoas mobility). Modalities of ice/heat only due to Cancer ongoing history.
--- NOTE | 2022-05-31 14:41 | PT.OPPN ---
Current Diagnoses Postural kyphosis, site unspecified (06/02/22) Low back pain, unspecified (06/02/22) Physical Therapy Progress Note PT-OP-A Visit Information Start: 04/16/22 18:30 Freq: Status: Active Protocol: Document 06/02/22 13:41 LR (Rec: 05/31/22 18:38 [facility] [id number]) Out-Patient Physical Therapy Visit Information Visit Information Visit Type Progress Note Visit Note 08/03 Visit Start Time 13:54 Visit Stop Time 14:32 Total Visit Minutes 38 Visit Number 9 Number of JOB MOLDER Visits 0 PT-OP-B Current Condition Start: 04/16/22 18:30 Freq: Status: Active Protocol: Document 04/20/22 10:42 LRN (Rec: 04/20/22 11:25 LRN [id number]) Current Condition History of Current Condition Onset Date 6 weeks ago Current Complaints Back (R>L) and R hip pain. History of Current Condition Insidious onset 6 weeks ago, 1 month ago took an RV trip and made pain worse. Just started Amitriptyline for scotum pain which makes him sleepy. Prior Treatments and Tests None. 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 Future Testing and Treatments Planned none. Treatment Goals Patient/Caregiver Goals Pt goal with therapy: -Reduce the back pain to relieve the need for wearing the back brace, and -Reduce R hip pain into the anterior thigh in order to reduce need for Tylenol daily at night before bed (used to help sleep). 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 Medications for blood pressure and urine flow. Current Functional Impairments (Reported) Functional Limitations- ADL's Must wear a soft back brace to sit > 1/2 hr. Wears the back brace daily except when on feet and walking, doesn't need . Functional Limitations- Other Must wear soft brace to sit in his primary chair for >30 minutes. 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 Kidney removed 2012. PT-OP-C Subjective Start: 04/16/22 18:30 Freq: Status: Active Protocol: Document 06/02/22 13:41 LR (Rec: 05/31/22 18:38 [facility] [id number]) OP-PT Subjective Patient Comments Patient Comments Pt has filter in place for R hip blood clot. His back is getting better. He does his exercises a few times a day and that helps with pain. Sitting in his chair especially reclining PT-OP-H Neuro Start: 04/16/22 18:30 Freq: Status: Active Protocol: Document 04/20/22 10:42 LRN (Rec: 04/20/22 11:25 LRN [id number]) Sensation Evaluation Gross Sensation Gross Sensation WNL PT-OP-J Posture/Palpation/Skin Start: 04/16/22 18:30 Freq: Status: Active Protocol: Document 04/20/22 10:42 LRN (Rec: 04/20/22 11:25 LRN [id number]) Posture Evaluation Position Standing T-Spine Posture Increased Kyphosis L-Spine Posture Increased Lordosis,Shifted Left Shoulder Posture (R) Elevated Scapula Posture (L) Elevated Pelvis Posture Neutral Palpation Assessment Location PSIS Palpation Location R PSIS Palpation Findings Tenderness Palpation Details Sleeping on L side caused in R PSIS that radiated to anterior R thigh Low Back Palpation Location Sacrum R lateral border Palpation Findings Tenderness PT-OP-K Range of Motion Start: 04/16/22 18:30 Freq: Status: Active Protocol: Document 04/20/22 10:42 LRN (Rec: 04/20/22 11:25 LRN [id number]) Lumbar Spine Range of Motion Lumbar Spine Active Degrees Testing Position Standing Flexion 80 Extension 15 Rotation Left 15 Rotation Right 5 Lateral Flexion Left 10 Lateral Flexion Right 7 ROM Limitations Soft Tissue Tightness Comments Flex is 80/15 Ext is 15/5 Hip Goniometric Range of Motion Hip Measured in Degrees Right Passive Testing Position Supine Straight Leg Raise 80 Internal Rotation 20 External Rotation 50 Left Passive Testing Position Supine Straight Leg Raise 60 Internal Rotation 20 External Rotation 50 PT-OP-L Special Tests Start: 04/16/22 18:30 Freq: Status: Active Protocol: Document 04/20/22 10:42 LRN (Rec: 04/20/22 11:25 LRN [id number]) Special Tests Lumbar Spine Special Tests Nickolas Test Results + bilaterally Straight Leg Raise Test Results 65 L, 80 R Standing Flexion Test Results negative Vertical Spine Loading Test Results negative PT-OP-M Strength Start: 04/16/22 18:30 Freq: Status: Active Protocol: Document 04/20/22 10:42 LRN (Rec: 04/20/22 11:25 LRN [id number]) Hip Strength Hip Manual Muscle Testing Right Extension (S1) 5 Normal Comments Pain in LB with hip Ext testing Left Extension (S1) 5 Normal PT-OP-T Assessment and Plan Start: 04/16/22 18:30 Freq: Status: Active Protocol: Document 06/02/22 13:41 LR (Rec: 05/31/22 18:38 [facility] [id number]) Physical Therapy Assessment Goals Three Impairment R hip>anterior thigh pain rated 4-7/10, L hip pain rated 1/10. Short Term Goal (STG) Educate pt in proper sitting and standing posture using external supports as needed. STG Duration 04/27/22 (04/22/22: MET GOAL) Jail Goal (LTG) Decrease R hip/anterior thigh pain in order to reduce need for Tylenol nightly before bedtime. 05/19/22: progressing Tylenol 500 mg 3-4x day and before bed for pain control. Dr Hand reassured is ok. LTG Duration 07/13/22 progressing 05/19/22 Two Impairment Reduce back pain Impairment Back pain rated 3/10 (R worse than L), interrupting ability to sleep at night. Short Term Goal (STG) Pt will be educated in proper sleep posturing to reduce onset of back pain. STG Duration 04/21/22 (04/22/22: MET GOAL) Jail Goal (LTG) Decrease back pain to a level to relieve the need for wearing the back brace 05/21/22: Pt isn't wearing back brace currently due to not driving long distances. LTG Duration 07/13/22 One Impairment Lacks appropriate self care HEP. Short Term Goal (STG) Improve L PSLR and normalize trunk posture (eliminate L lateral shift) with self care HEP. 05/31 STG Duration 05/07/22 Pipe Layer Goal (LTG) Pt will be independent in a self care HEP of trunk ( improve rot R>L, & SB R>L) and hip mobility (improve Ilipsoas mobility), and hip strength as appropriate. 04/26/22: Added to HEP: Open Book stretch, Thread the Needle, hooklying Lower Trapezius push down - HO given . LTG Duration 07/13/22 Assessment Summary Assessment Pt had dec pain into ER w/ manual treatment of L hip and did well with stretches without inc L hip discomfort. (pt had noted sometimes he has mild discomfort in L hip after exercises and thought it was stretches) Physical Therapy Plan Frequency and Duration Frequency of Treatment 2x/Week Duration of treatment (weeks) 12 Plan of Care Start Date 04/20/22 Plan of Care End Date 07/13/22 Next Visit Focus/Plan Next Note Type Treatment Note Next Visit Plan assess pt's pic of chair HEP: correction for L lateral trunk shift and L PSLR stretch (recheck RLE). Assess Hip/core strength and issue ex's for core/pelvic stability and hip strengthening as needed. Ther Ex & HEP of trunk ( improve rot R>L, & SB R>L) and hip mobility (improve Ilipsoas mobility). Modalities of ice/heat only due to Cancer ongoing history.
--- NOTE | 2022-05-31 18:38 | PT.OTN ---
Current Diagnoses Postural kyphosis, site unspecified (05/31/22) Low back pain, unspecified (05/31/22) Physical Therapy Treatment Note PT-OP-A Visit Information Start: 04/16/22 18:30 Freq: Status: Active Protocol: Document 05/31/22 13:52 LR (Rec: 05/31/22 18:38 [facility] [id number]) Out-Patient Physical Therapy Visit Information Visit Information Visit Type Progress Note Visit Note 08/03 Visit Start Time 13:54 Visit Stop Time 14:32 Total Visit Minutes 38 Visit Number 9 Number of LONGITUDINAL FLOAT OPERATOR Visits 0 PT-OP-B Current Condition Start: 04/16/22 18:30 Freq: Status: Active Protocol: Document 04/20/22 10:42 LRN (Rec: 04/20/22 11:25 LRN [id number]) Current Condition History of Current Condition Onset Date 6 weeks ago Current Complaints Back (R>L) and R hip pain. History of Current Condition Insidious onset 6 weeks ago, 1 month ago took an RV trip and made pain worse. Just started Amitriptyline for scotum pain which makes him sleepy. Prior Treatments and Tests None. 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 Future Testing and Treatments Planned none. Treatment Goals Patient/Caregiver Goals Pt goal with therapy: -Reduce the back pain to relieve the need for wearing the back brace, and -Reduce R hip pain into the anterior thigh in order to reduce need for Tylenol daily at night before bed (used to help sleep). 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 Medications for blood pressure and urine flow. Current Functional Impairments (Reported) Functional Limitations- ADL's Must wear a soft back brace to sit > 1/2 hr. Wears the back brace daily except when on feet and walking, doesn't need . Functional Limitations- Other Must wear soft brace to sit in his primary chair for >30 minutes. 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 Kidney removed 2012. PT-OP-C Subjective Start: 04/16/22 18:30 Freq: Status: Active Protocol: Document 05/31/22 13:52 LR (Rec: 05/31/22 18:38 [facility] [id number]) OP-PT Subjective Patient Comments Patient Comments Pt has filter in place for R hip blood clot. His back is getting better. He does his exercises a few times a day and that helps with pain. Sitting in his chair especially reclining PT-OP-H Neuro Start: 04/16/22 18:30 Freq: Status: Active Protocol: Document 04/20/22 10:42 LRN (Rec: 04/20/22 11:25 LRN [id number]) Sensation Evaluation Gross Sensation Gross Sensation WNL PT-OP-J Posture/Palpation/Skin Start: 04/16/22 18:30 Freq: Status: Active Protocol: Document 04/20/22 10:42 LRN (Rec: 04/20/22 11:25 LRN [id number]) Posture Evaluation Position Standing T-Spine Posture Increased Kyphosis L-Spine Posture Increased Lordosis,Shifted Left Shoulder Posture (R) Elevated Scapula Posture (L) Elevated Pelvis Posture Neutral Palpation Assessment Location PSIS Palpation Location R PSIS Palpation Findings Tenderness Palpation Details Sleeping on L side caused in R PSIS that radiated to anterior R thigh Low Back Palpation Location Sacrum R lateral border Palpation Findings Tenderness PT-OP-K Range of Motion Start: 04/16/22 18:30 Freq: Status: Active Protocol: Document 04/20/22 10:42 LRN (Rec: 04/20/22 11:25 LRN [id number]) Lumbar Spine Range of Motion Lumbar Spine Active Degrees Testing Position Standing Flexion 80 Extension 15 Rotation Left 15 Rotation Right 5 Lateral Flexion Left 10 Lateral Flexion Right 7 ROM Limitations Soft Tissue Tightness Comments Flex is 80/15 Ext is 15/5 Hip Goniometric Range of Motion Hip Right Passive Testing Position Supine Straight Leg Raise 80 Internal Rotation 20 External Rotation 50 Left Passive Testing Position Supine Straight Leg Raise 60 Internal Rotation 20 External Rotation 50 PT-OP-L Special Tests Start: 04/16/22 18:30 Freq: Status: Active Protocol: Document 04/20/22 10:42 LRN (Rec: 04/20/22 11:25 LRN [id number]) Special Tests Lumbar Spine Special Tests Nickolas Test Results + bilaterally Straight Leg Raise Test Results 65 L, 80 R Standing Flexion Test Results negative Vertical Spine Loading Test Results negative PT-OP-M Strength Start: 04/16/22 18:30 Freq: Status: Active Protocol: Document 04/20/22 10:42 LRN (Rec: 04/20/22 11:25 LRN [id number]) Hip Strength Hip Manual Muscle Testing Right Extension (S1) 5 Normal Comments Pain in LB with hip Ext testing Left Extension (S1) 5 Normal PT-OP-Q Treatments Start: 04/16/22 18:30 Freq: Status: Active Protocol: Document 05/31/22 13:52 [facility] (Rec: 05/31/22 18:38 [facility] [id number]) Therapeutic Exercises Supine Exercises Hamstring/LE Neural stretch Supine Exercise Name Hamstring/LE Neural stretch Side bilateral Reps/Minutes 30sec Comments good form and no UT tension IT Band stretch Supine Exercise Name IT Band stretch w/strap Side bilateral Reps/Minutes Hold 10 breaths Comments good form, understanding and stretch response Fig 4 stretch Supine Exercise Name Fig 4 stretch-w/push away then opp leg pull up Side bilateral Reps/Minutes 30 sec ea Manual Therapy Treatment Soft Tissue Mobilization L ITB Mobilization Type Strumming Intensity/Depth Moderate Body Position Hooklying R Lumbar Body Location R QL & B ES Mobilization Type Rolling,Sustained Pressure Intensity/Depth Moderate Body Position Sidelying Joint Mobilizations hip Joint L ER FM Body Position Hooklying PT-OP-R Modalities Start: 04/16/22 18:30 Freq: Status: Active Protocol: Document 05/24/22 08:57 NBM (Rec: 05/24/22 09:48 NBM [id number]) Hot Pack/Cold Pack Treatment Cold Pack Location lumbar Patient Position Hooklying Treatment Duration (minutes) 10 Patient Tolerance Good PT-OP-T Assessment and Plan Start: 04/16/22 18:30 Freq: Status: Active Protocol: Document 05/31/22 13:52 [facility] (Rec: 05/31/22 18:38 [facility] [id number]) Physical Therapy Assessment Goals Three Impairment R hip>anterior thigh pain rated 4-7/10, L hip pain rated 1/10. Short Term Goal (STG) Educate pt in proper sitting and standing posture using external supports as needed. STG Duration 04/27/22 (04/22/22: MET GOAL) Nutrition Counselor Goal (LTG) Decrease R hip/anterior thigh pain in order to reduce need for Tylenol nightly before bedtime. 05/19/22: progressing Tylenol 500 mg 3-4x day and before bed for pain control. Dr Hand reassured is ok. LTG Duration 07/13/22 progressing 05/19/22 Two Impairment Reduce back pain Impairment Back pain rated 3/10 (R worse than L), interrupting ability to sleep at night. Short Term Goal (STG) Pt will be educated in proper sleep posturing to reduce onset of back pain. STG Duration 04/21/22 (04/22/22: MET GOAL) Residential Goal (LTG) Decrease back pain to a level to relieve the need for wearing the back brace 05/21/22: Pt isn't wearing back brace currently due to not driving long distances. LTG Duration 07/13/22 One Impairment Lacks appropriate self care HEP. Short Term Goal (STG) Improve L PSLR and normalize trunk posture (eliminate L lateral shift) with self care HEP. 05/31 STG Duration 05/07/22 Residential Goal (LTG) Pt will be independent in a self care HEP of trunk ( improve rot R>L, & SB R>L) and hip mobility (improve Ilipsoas mobility), and hip strength as appropriate. 04/26/22: Added to HEP: Open Book stretch, Thread the Needle, hooklying Lower Trapezius push down - HO given . LTG Duration 07/13/22 Assessment Summary Assessment Pt had dec pain into ER w/ manual treatment of L hip and did well with stretches without inc L hip discomfort. (pt had noted sometimes he has mild discomfort in L hip after exercises and thought it was stretches) Physical Therapy Plan Frequency and Duration Frequency of Treatment 2x/Week Duration of treatment (weeks) 12 Plan of Care Start Date 04/20/22 Plan of Care End Date 07/13/22 Next Visit Focus/Plan Next Note Type Treatment Note Next Visit Plan assess pt's pic of chair HEP: correction for L lateral trunk shift and L PSLR stretch (recheck RLE). Assess Hip/core strength and issue ex's for core/pelvic stability and hip strengthening as needed. Ther Ex & HEP of trunk ( improve rot R>L, & SB R>L) and hip mobility (improve Ilipsoas mobility). Modalities of ice/heat only due to Cancer ongoing history.
--- NOTE | 2022-06-02 11:15 | PT.OTN ---
Current Diagnoses Postural kyphosis, site unspecified (06/02/22) Low back pain, unspecified (06/02/22) Physical Therapy Treatment Note PT-OP-A Visit Information Start: 04/16/22 18:30 Freq: Status: Active Protocol: Document 06/02/22 10:31 TS (Rec: 06/02/22 11:40 TS [id number]) Out-Patient Physical Therapy Visit Information Visit Information Visit Type Treatment Note Visit Note SPTA Bob lead treatment, OYSTER FLOATER Sarah supervised and directed Visit Start Time 10:32 Visit Stop Time 11:15 Total Visit Minutes 43 Visit Number 10 Number of OYSTER FLOATER Visits 1 Precautions Precautions 2 weeks new:IVC filter over anterior R hip under the skin for blood clot management for potentially up to 3 months. Cleared by physician, continue activity with therapy. PT-OP-B Current Condition Start: 04/16/22 18:30 Freq: Status: Active Protocol: Document 04/20/22 10:42 LRN (Rec: 04/20/22 11:25 LRN [id number]) Current Condition History of Current Condition Onset Date 6 weeks ago Current Complaints Back (R>L) and R hip pain. History of Current Condition Insidious onset 6 weeks ago, 1 month ago took an RV trip and made pain worse. Just started Amitriptyline for scotum pain which makes him sleepy. Prior Treatments and Tests None. 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 Future Testing and Treatments Planned none. Treatment Goals Patient/Caregiver Goals Pt goal with therapy: -Reduce the back pain to relieve the need for wearing the back brace, and -Reduce R hip pain into the anterior thigh in order to reduce need for Tylenol daily at night before bed (used to help sleep). 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 Medications for blood pressure and urine flow. Current Functional Impairments (Reported) Functional Limitations- ADL's Must wear a soft back brace to sit > 1/2 hr. Wears the back brace daily except when on feet and walking, doesn't need . Functional Limitations- Other Must wear soft brace to sit in his primary chair for >30 minutes. 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 Kidney removed 2012. PT-OP-C Subjective Start: 04/16/22 18:30 Freq: Status: Active Protocol: Document 06/02/22 10:31 TS (Rec: 06/02/22 11:40 TS [id number]) OP-PT Subjective Patient Comments Patient Comments Pt reports he is walking up to half mile now without any pain but does get fatigued in RLE. Reports when sitting in upright position back pain improves. PT-OP-H Neuro Start: 04/16/22 18:30 Freq: Status: Active Protocol: Document 04/20/22 10:42 LRN (Rec: 04/20/22 11:25 LRN [id number]) Sensation Evaluation Gross Sensation Gross Sensation WNL PT-OP-J Posture/Palpation/Skin Start: 04/16/22 18:30 Freq: Status: Active Protocol: Document 04/20/22 10:42 LRN (Rec: 04/20/22 11:25 LRN [id number]) Posture Evaluation Position Standing T-Spine Posture Increased Kyphosis L-Spine Posture Increased Lordosis,Shifted Left Shoulder Posture (R) Elevated Scapula Posture (L) Elevated Pelvis Posture Neutral Palpation Assessment Location PSIS Palpation Location R PSIS Palpation Findings Tenderness Palpation Details Sleeping on L side caused in R PSIS that radiated to anterior R thigh Low Back Palpation Location Sacrum R lateral border Palpation Findings Tenderness PT-OP-K Range of Motion Start: 04/16/22 18:30 Freq: Status: Active Protocol: Document 04/20/22 10:42 LRN (Rec: 04/20/22 11:25 LRN [id number]) Lumbar Spine Range of Motion Lumbar Spine Active Degrees Testing Position Standing Flexion 80 Extension 15 Rotation Left 15 Rotation Right 5 Lateral Flexion Left 10 Lateral Flexion Right 7 ROM Limitations Soft Tissue Tightness Comments Flex is 80/15 Ext is 15/5 Hip Goniometric Range of Motion Hip Right Passive Testing Position Supine Straight Leg Raise 80 Internal Rotation 20 External Rotation 50 Left Passive Testing Position Supine Straight Leg Raise 60 Internal Rotation 20 External Rotation 50 PT-OP-L Special Tests Start: 04/16/22 18:30 Freq: Status: Active Protocol: Document 04/20/22 10:42 LRN (Rec: 04/20/22 11:25 LRN [id number]) Special Tests Lumbar Spine Special Tests Nickolas Test Results + bilaterally Straight Leg Raise Test Results 65 L, 80 R Standing Flexion Test Results negative Vertical Spine Loading Test Results negative PT-OP-M Strength Start: 04/16/22 18:30 Freq: Status: Active Protocol: Document 04/20/22 10:42 LRN (Rec: 04/20/22 11:25 LRN [id number]) Hip Strength Hip Manual Muscle Testing Right Extension (S1) 5 Normal Comments Pain in LB with hip Ext testing Left Extension (S1) 5 Normal PT-OP-Q Treatments Start: 04/16/22 18:30 Freq: Status: Active Protocol: Document 06/02/22 10:31 TS (Rec: 06/02/22 11:40 TS [id number]) Therapeutic Exercises Supine Exercises Ball crunch Supine Exercise Name Ball UE press into tball on abdomen w/ 5 sec hold Equipment Used EX ball 65cm Reps/Minutes 1x10 Comments Cues for sequencing, PPT LTR Supine Exercise Name Lower trunk rotation Side bilateral Comments good form, painfree Hamstring/LE Neural stretch Supine Exercise Name Hamstring/LE Neural stretch w/ strap & ankle pumps Side bilateral Equipment Used strap Reps/Minutes 30sec Comments good form and no UT tension IT Band stretch Supine Exercise Name IT Band stretch w/strap Side bilateral Reps/Minutes Hold 10 breaths Comments good form. Standing Exercises Wall Posture Reps/Minutes 2 mins Comments Cued Ta, cervical retraction, PPT for posture. Rows Equipment Used LVL 2 Reps/Minutes 2x10 Comments Cues for core act, scapula squeeze, upright posture and head. Step Outs Standing Exercise Name Step outs with TB Side bilateral Resistance Lvl 2 Equipment Used TB Reps/Minutes 1x10 each side Comments Good eccentric control. Cues for upright posture and head. Manual Therapy Treatment Soft Tissue Mobilization Iliopsoas Mobilization Type Sustained Pressure Intensity/Depth Moderate Body Position Hooklying Comments Sustained pressure with breath exhale, softening. Self-Care/Home Management Treatment Education Other Education Pt brought photo of sitting posture in recliner. Reviewed seated posture, suggested use of pillows in mid thoracic while in recliner for improved posture and back pain. PT-OP-R Modalities Start: 04/16/22 18:30 Freq: Status: Active Protocol: Document 05/24/22 08:57 NBM (Rec: 05/24/22 09:48 NBM [id number]) Hot Pack/Cold Pack Treatment Cold Pack Location lumbar Patient Position Hooklying Treatment Duration (minutes) 10 Patient Tolerance Good PT-OP-T Assessment and Plan Start: 04/16/22 18:30 Freq: Status: Active Protocol: Document 06/02/22 10:31 TS (Rec: 06/02/22 11:40 TS [id number]) Physical Therapy Assessment Goals Three Impairment R hip>anterior thigh pain rated 4-7/10, L hip pain rated 1/10. Short Term Goal (STG) Educate pt in proper sitting and standing posture using external supports as needed. STG Duration 04/27/22 (04/22/22: MET GOAL) Fdc Goal (LTG) Decrease R hip/anterior thigh pain in order to reduce need for Tylenol nightly before bedtime. 05/19/22: progressing Tylenol 500 mg 3-4x day and before bed for pain control. Dr Hand reassured is ok. 06/02/22- Still having R anterior hip pn. Him and doctor believe it is from blood clot. Still taking tylenol 3-4x a day. LTG Duration 07/13/22 slow progression 06/02 Two Impairment Reduce back pain Impairment Back pain rated 3/10 (R worse than L), interrupting ability to sleep at night. Short Term Goal (STG) Pt will be educated in proper sleep posturing to reduce onset of back pain. STG Duration 04/21/22 (04/22/22: MET GOAL) Fdc Goal (LTG) Decrease back pain to a level to relieve the need for wearing the back brace 05/21/22: Pt isn't wearing back brace currently due to not driving long distances. 06/02/22- no changes. Will use [employer]ac[employer] wrap to provide heat on trip to [place]. LTG Duration 07/13/22 One Impairment Lacks appropriate self care HEP. Short Term Goal (STG) Improve L PSLR and normalize trunk posture (eliminate L lateral shift) with self care HEP. 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 04/26/22: Added to HEP: Open Book stretch, Thread the Needle, hooklying Lower Trapezius push down - HO given . LTG Duration 07/13/22 Assessment Summary Assessment Pt continues to demonstrate good carryover of HEP and stretches. Pt has difficulty tolerating ex in standing due to RLE fatigue requiring frequent rest breaks. He continues to have R anterior hip pain requiring taking tylenol 3-4x a day (him and doctor believe it is due to blood clot). Pt will benefit from cont intervention to improve activity tolerance and reduction of pain symptoms. Physical Therapy Plan Frequency and Duration Frequency of Treatment 2x/Week Duration of treatment (weeks) 12 Plan of Care Start Date 04/20/22 Plan of Care End Date 07/13/22 Therapeutic Interventions Therapeutic Interventions Home Exercise Program,Manual Therapy,Patient/Caregiver Education,Self-Care/Home Management,Soft Tissue Mobilization,Therapeutic Exercises Modalities Cold Pack/Ice Massage,Hot Packs Next Visit Focus/Plan Next Note Type Treatment Note Next Visit Plan Trial shoulder ext, psoas stretch, pec stretch to support posture and pain reduction. HEP: correction for L lateral trunk shift and L PSLR stretch (recheck RLE). Cont to progress Hip/core strength and issue ex's for core/pelvic stability and hip strengthening as needed. Ther Ex & HEP of trunk ( improve rot R>L, & SB R>L) and hip mobility (improve Ilipsoas mobility). Modalities of ice/heat only due to Cancer ongoing history.
--- NOTE | 2022-06-07 09:11 | PT.OTN ---
Current Diagnoses Postural kyphosis, site unspecified (06/07/22) Low back pain, unspecified (06/07/22) Physical Therapy Treatment Note PT-OP-A Visit Information Start: 04/16/22 18:30 Freq: Status: Active Protocol: Document 06/07/22 08:10 LRN (Rec: 06/07/22 09:04 LRN [id number]) Out-Patient Physical Therapy Visit Information Visit Information Visit Type Treatment Note Visit Note 10/01 Visit Start Time 08:17 Visit Stop Time 09:00 Total Visit Minutes 43 Visit Number 11 Evaluation Information Evaluation Date 04/20/22 Precautions Precautions 2 weeks new:IVC filter over anterior R hip under the skin for blood clot management for potentially up to 3 months. Cleared by physician, continue activity with therapy. PT-OP-B Current Condition Start: 04/16/22 18:30 Freq: Status: Active Protocol: Document 04/20/22 10:42 LRN (Rec: 04/20/22 11:25 LRN [id number]) Current Condition History of Current Condition Onset Date 6 weeks ago Current Complaints Back (R>L) and R hip pain. History of Current Condition Insidious onset 6 weeks ago, 1 month ago took an RV trip and made pain worse. Just started Amitriptyline for scotum pain which makes him sleepy. Prior Treatments and Tests None. 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 Future Testing and Treatments Planned none. Treatment Goals Patient/Caregiver Goals Pt goal with therapy: -Reduce the back pain to relieve the need for wearing the back brace, and -Reduce R hip pain into the anterior thigh in order to reduce need for Tylenol daily at night before bed (used to help sleep). 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 Medications for blood pressure and urine flow. Current Functional Impairments (Reported) Functional Limitations- ADL's Must wear a soft back brace to sit > 1/2 hr. Wears the back brace daily except when on feet and walking, doesn't need . Functional Limitations- Other Must wear soft brace to sit in his primary chair for >30 minutes. 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 Kidney removed 2012. PT-OP-C Subjective Start: 04/16/22 18:30 Freq: Status: Active Protocol: Document 06/07/22 08:10 LRN (Rec: 06/07/22 09:04 LRN [id number]) OP-PT Subjective Patient Comments Patient Comments States his back is better because he can sit in his easy chair for a couple hours with heating pad. Wearing back brace, primarily to use ice to the back. Has a mass on his R back creating dull constant pain. Surgery scheduled for Jul 27 to remove the mass in the back and remove the ureter on the R side (was supposed to do it but postponed due to blood clot). Sciatic Pain (lateral R hip to R knee, but whole leg hurts now) rated in back 4/10, with Tylenol, 2/10. Walking 1/2 mile a day (was 2-3 miles/day) . PT-OP-H Neuro Start: 04/16/22 18:30 Freq: Status: Active Protocol: Document 04/20/22 10:42 LRN (Rec: 04/20/22 11:25 LRN [id number]) Sensation Evaluation Gross Sensation Gross Sensation WNL PT-OP-J Posture/Palpation/Skin Start: 04/16/22 18:30 Freq: Status: Active Protocol: Document 04/20/22 10:42 LRN (Rec: 04/20/22 11:25 LRN [id number]) Posture Evaluation Position Standing T-Spine Posture Increased Kyphosis L-Spine Posture Increased Lordosis,Shifted Left Shoulder Posture (R) Elevated Scapula Posture (L) Elevated Pelvis Posture Neutral Palpation Assessment Location PSIS Palpation Location R PSIS Palpation Findings Tenderness Palpation Details Sleeping on L side caused in R PSIS that radiated to anterior R thigh Low Back Palpation Location Sacrum R lateral border Palpation Findings Tenderness PT-OP-K Range of Motion Start: 04/16/22 18:30 Freq: Status: Active Protocol: Document 06/07/22 08:10 LRN (Rec: 06/07/22 09:04 LRN [id number]) Hip Goniometric Range of Motion Hip Right Passive Straight Leg Raise 50 Left Passive Straight Leg Raise 65 PT-OP-L Special Tests Start: 04/16/22 18:30 Freq: Status: Active Protocol: Document 04/20/22 10:42 LRN (Rec: 04/20/22 11:25 LRN [id number]) Special Tests Lumbar Spine Special Tests Nickolas Test Results + bilaterally Straight Leg Raise Test Results 65 L, 80 R Standing Flexion Test Results negative Vertical Spine Loading Test Results negative PT-OP-M Strength Start: 04/16/22 18:30 Freq: Status: Active Protocol: Document 04/20/22 10:42 LRN (Rec: 04/20/22 11:25 LRN [id number]) Hip Strength Hip Manual Muscle Testing Right Extension (S1) 5 Normal Comments Pain in LB with hip Ext testing Left Extension (S1) 5 Normal PT-OP-Q Treatments Start: 04/16/22 18:30 Freq: Status: Active Protocol: Document 06/07/22 08:10 LRN (Rec: 06/07/22 09:04 LRN [id number]) Therapeutic Exercises Supine Exercises Pec stretch Supine Exercise Name Arms in V Reps/Minutes 10 breaths (30) x 3 Comments Extra time taken to determine max stretch and proper performance of ex Hip ER in hooklie Supine Exercise Name Hip ER stretch in hooklie Side bilateral Reps/Minutes (30 sec) 4 breath hold x 2 each Comments Pt reports it relieves his hip pain. Ball crunch Supine Exercise Name Hands/knees press, Ball UE press into tball on abdomen Equipment Used EX ball 65cm and small beach ball Reps/Minutes 5 SH x 10, x 2 respectively Comments Cuing for Core in neutral LTR Supine Exercise Name Lower trunk rotation Side bilateral Reps/Minutes 15x Comments good form, painfree Hamstring/LE Neural stretch Supine Exercise Name Hamstring/LE Neural stretch w/ strap & ankle pumps Side bilateral Equipment Used strap to hold around thigh Reps/Minutes 30sec Comments good form and no UT tension IT Band stretch Supine Exercise Name IT Band stretch w/strap Side bilateral Reps/Minutes Hold 10 breaths Comments good form. Piriformis Supine Exercise Name Piriformis Side bilateral Reps/Minutes Hold 10 breaths (1 breath = 3 secs) Comments cues for relaxed neck Standing Exercises Shoulder Ext Standing Exercise Name Shoulder ext Side bilateral Equipment Used Lev 1 TB Reps/Minutes 10x Comments Pt became light headed and R thigh began to be intolerable in ache. Manual Therapy Treatment Soft Tissue Mobilization L ITB Body Location R ITB Mobilization Type Instrument Assisted,Rolling Intensity/Depth Moderate Body Position Sidelying R Lumbar Body Location R QL Mobilization Type Instrument Assisted,Rolling Intensity/Depth Moderate Body Position Sidelying PT-OP-R Modalities Start: 04/16/22 18:30 Freq: Status: Active Protocol: Document 05/24/22 08:57 NBM (Rec: 05/24/22 09:48 NBM [id number]) Hot Pack/Cold Pack Treatment Cold Pack Location lumbar Patient Position Hooklying Treatment Duration (minutes) 10 Patient Tolerance Good PT-OP-T Assessment and Plan Start: 04/16/22 18:30 Freq: Status: Active Protocol: Document 06/07/22 08:10 LRN (Rec: 06/07/22 09:04 LRN [id number]) Physical Therapy Assessment Goals Three Impairment R hip>anterior thigh pain rated 4-7/10, L hip pain rated 1/10. Short Term Goal (STG) Educate pt in proper sitting and standing posture using external supports as needed. STG Duration 04/27/22 (04/22/22: MET GOAL) Half-Way Goal (LTG) Decrease R hip/anterior thigh pain in order to reduce need for Tylenol nightly before bedtime. 05/19/22: progressing Tylenol 500 mg 3-4x day and before bed for pain control. Dr Hand reassured is ok. 06/02/22- Still having R anterior hip pn. Him and doctor believe it is from blood clot. Still taking tylenol 3-4x a day. LTG Duration 07/13/22 slow progression 06/02 Two Impairment Reduce back pain Impairment Back pain rated 3/10 (R worse than L), interrupting ability to sleep at night. Short Term Goal (STG) Pt will be educated in proper sleep posturing to reduce onset of back pain. 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 06/02/22- no changes. Will use [employer] wrap to provide heat on trip to [place]. LTG Duration 07/13/22 One Impairment Lacks appropriate self care HEP. Short Term Goal (STG) Improve L PSLR and normalize trunk posture (eliminate L lateral shift) with self care HEP. 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 04/26/22: Added to HEP: Open Book stretch, Thread the Needle, hooklying Lower Trapezius push down - HO given . LTG Duration 07/13/22 Progress Towards Goals Progress Comments PSLR: R side: 50 deg's ( initially was not able to tolerate stretch). Assessment Summary Assessment + response to STM. Pt has low tolerance to standing due to R hip blood clot; therefore will try UB/UE ex in sitting. Defer Pec stretch due to blood clot. Hands/knees press created greater core tightening than ball on abdomen press. Pt had discomfort with ex due to R anter hip blood clot. Pec stretch was beneficial with pt feeling it was a good stretch . Pt R PSLR mobility has improved. Physical Therapy Plan Frequency and Duration Frequency of Treatment 2x/Week Duration of treatment (weeks) 12 Plan of Care Start Date 04/20/22 Plan of Care End Date 07/13/22 Next Visit Focus/Plan Next Note Type Treatment Note Next Visit Plan Try shoulder ext in sitting, pec stretch to support posture and pain reduction. HEP: correction for L lateral trunk shift). Cont to progress Hip/core strength and issue ex's (pec stretch) for core/pelvic stability and hip strengthening as needed. Ther Ex & HEP of trunk ( improve rot R>L, & SB R>L). Modalities of ice/heat only due to Cancer ongoing history.
--- NOTE | 2022-06-09 14:35 | PT.OTN ---
Current Diagnoses Postural kyphosis, site unspecified (06/09/22) Low back pain, unspecified (06/09/22) Physical Therapy Treatment Note PT-OP-A Visit Information Start: 04/16/22 18:30 Freq: Status: Active Protocol: Document 06/09/22 13:00 [facility] (Rec: 06/09/22 14:35 [facility] [id number]) Out-Patient Physical Therapy Visit Information Visit Information Visit Type Treatment Note Visit Start Time 13:48 Visit Stop Time 14:28 Total Visit Minutes 40 Visit Number 12 Number of DIABETES PHYSICIAN Visits 0 PT-OP-B Current Condition Start: 04/16/22 18:30 Freq: Status: Active Protocol: Document 04/20/22 10:42 LRN (Rec: 04/20/22 11:25 LRN [id number]) Current Condition History of Current Condition Onset Date 6 weeks ago Current Complaints Back (R>L) and R hip pain. History of Current Condition Insidious onset 6 weeks ago, 1 month ago took an RV trip and made pain worse. Just started Amitriptyline for scotum pain which makes him sleepy. Prior Treatments and Tests None. 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 Future Testing and Treatments Planned none. Treatment Goals Patient/Caregiver Goals Pt goal with therapy: -Reduce the back pain to relieve the need for wearing the back brace, and -Reduce R hip pain into the anterior thigh in order to reduce need for Tylenol daily at night before bed (used to help sleep). 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 Medications for blood pressure and urine flow. Current Functional Impairments (Reported) Functional Limitations- ADL's Must wear a soft back brace to sit > 1/2 hr. Wears the back brace daily except when on feet and walking, doesn't need . Functional Limitations- Other Must wear soft brace to sit in his primary chair for >30 minutes. 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 Kidney removed 2012. PT-OP-C Subjective Start: 04/16/22 18:30 Freq: Status: Active Protocol: Document 06/09/22 13:00 LR (Rec: 06/09/22 14:35 [facility] [id number]) OP-PT Subjective Patient Comments Patient Comments Pt notes compliance w/HEP PT-OP-H Neuro Start: 04/16/22 18:30 Freq: Status: Active Protocol: Document 04/20/22 10:42 LRN (Rec: 04/20/22 11:25 LRN [id number]) Sensation Evaluation Gross Sensation Gross Sensation WNL PT-OP-J Posture/Palpation/Skin Start: 04/16/22 18:30 Freq: Status: Active Protocol: Document 04/20/22 10:42 LRN (Rec: 04/20/22 11:25 LRN [id number]) Posture Evaluation Position Standing T-Spine Posture Increased Kyphosis L-Spine Posture Increased Lordosis,Shifted Left Shoulder Posture (R) Elevated Scapula Posture (L) Elevated Pelvis Posture Neutral Palpation Assessment Location PSIS Palpation Location R PSIS Palpation Findings Tenderness Palpation Details Sleeping on L side caused in R PSIS that radiated to anterior R thigh Low Back Palpation Location Sacrum R lateral border Palpation Findings Tenderness PT-OP-K Range of Motion Start: 04/16/22 18:30 Freq: Status: Active Protocol: Document 06/07/22 08:10 LRN (Rec: 06/07/22 09:04 LRN [id number]) Hip Goniometric Range of Motion Hip Right Passive Straight Leg Raise 50 Left Passive Straight Leg Raise 65 PT-OP-L Special Tests Start: 04/16/22 18:30 Freq: Status: Active Protocol: Document 04/20/22 10:42 LRN (Rec: 04/20/22 11:25 LRN [id number]) Special Tests Lumbar Spine Special Tests Nickolas Test Results + bilaterally Straight Leg Raise Test Results 65 L, 80 R Standing Flexion Test Results negative Vertical Spine Loading Test Results negative PT-OP-M Strength Start: 04/16/22 18:30 Freq: Status: Active Protocol: Document 04/20/22 10:42 LRN (Rec: 04/20/22 11:25 LRN [id number]) Hip Strength Hip Manual Muscle Testing Right Extension (S1) 5 Normal Comments Pain in LB with hip Ext testing Left Extension (S1) 5 Normal PT-OP-Q Treatments Start: 04/16/22 18:30 Freq: Status: Active Protocol: Document 06/09/22 13:00 [facility] (Rec: 06/09/22 14:35 [facility] [id number]) Therapeutic Exercises Supine Exercises hip flexor Supine Exercise Name straighten R LE out Side right Reps/Minutes 45 sec Pec stretch Supine Exercise Name Arms in V Reps/Minutes 10 breaths (30) Sitting Exercises Scap retraction Sitting Exercise Name w/shoulder ext Side bilateral Equipment Used L1 Reps/Minutes 2x10 Manual Therapy Treatment Soft Tissue Mobilization L ITB Body Location R ITB & glutes Mobilization Type Rolling Intensity/Depth Moderate Body Position Sidelying R Lumbar Body Location R QL & B ES Mobilization Type Rolling Intensity/Depth Moderate Body Position Sidelying Joint Mobilizations innominate Comments Post rotation stretch & innominate gapping R FM PT-OP-R Modalities Start: 04/16/22 18:30 Freq: Status: Active Protocol: Document 05/24/22 08:57 NBM (Rec: 05/24/22 09:48 NBM [id number]) Hot Pack/Cold Pack Treatment Cold Pack Location lumbar Patient Position Hooklying Treatment Duration (minutes) 10 Patient Tolerance Good PT-OP-T Assessment and Plan Start: 04/16/22 18:30 Freq: Status: Active Protocol: Document 06/09/22 13:00 [facility] (Rec: 06/09/22 14:35 [facility] [id number]) Physical Therapy Assessment Goals Three Impairment R hip>anterior thigh pain rated 4-7/10, L hip pain rated 1/10. Short Term Goal (STG) Educate pt in proper sitting and standing posture using external supports as needed. STG Duration 04/27/22 (04/22/22: MET GOAL) Half-Way Goal (LTG) Decrease R hip/anterior thigh pain in order to reduce need for Tylenol nightly before bedtime. 05/19/22: progressing Tylenol 500 mg 3-4x day and before bed for pain control. Dr Hand reassured is ok. 06/02/22- Still having R anterior hip pn. Him and doctor believe it is from blood clot. Still taking tylenol 3-4x a day. LTG Duration 07/13/22 slow progression 06/02 Two Impairment Reduce back pain Impairment Back pain rated 3/10 (R worse than L), interrupting ability to sleep at night. Short Term Goal (STG) Pt will be educated in proper sleep posturing to reduce onset of back pain. STG Duration 04/21/22 (04/22/22: MET GOAL) Fish Dressing Machine Feeder Goal (LTG) Decrease back pain to a level to relieve the need for wearing the back brace 05/21/22: Pt isn't wearing back brace currently due to not driving long distances. 06/02/22- no changes. Will use thermac[employer] wrap to provide heat on trip to [place]. LTG Duration 07/13/22 One Impairment Lacks appropriate self care HEP. Short Term Goal (STG) Improve L PSLR and normalize trunk posture (eliminate L lateral shift) with self care HEP. 05/31 STG Duration 05/07/22 Half-Way Goal (LTG) Pt will be independent in a self care HEP of trunk ( improve rot R>L, & SB R>L) and hip mobility (improve Ilipsoas mobility), and hip strength as appropriate. 04/26/22: Added to HEP: Open Book stretch, Thread the Needle, hooklying Lower Trapezius push down - HO given . LTG Duration 07/13/22 Assessment Summary Assessment Pt felt relief w/soft tissue massage and was able to stand up in better posture w/manual therapy. Physical Therapy Plan Frequency and Duration Frequency of Treatment 2x/Week Duration of treatment (weeks) 12 Plan of Care Start Date 04/20/22 Plan of Care End Date 07/13/22 Next Visit Focus/Plan Next Note Type Treatment Note Next Visit Plan Try shoulder ext in sitting, pec stretch to support posture and pain reduction. HEP: correction for L lateral trunk shift). Cont to progress Hip/core strength and issue ex's (pec stretch) for core/pelvic stability and hip strengthening as needed. Ther Ex & HEP of trunk ( improve rot R>L, & SB R>L). Modalities of ice/heat only due to Cancer ongoing history.
--- NOTE | 2022-06-14 10:35 | PT.OTN ---
Current Diagnoses Postural kyphosis, site unspecified (06/14/22) Low back pain, unspecified (06/14/22) Physical Therapy Treatment Note PT-OP-A Visit Information Start: 04/16/22 18:30 Freq: Status: Active Protocol: Document 06/14/22 09:51 NBM (Rec: 06/14/22 10:35 NBM [id number]) Out-Patient Physical Therapy Visit Information Visit Information Visit Type Treatment Note Visit Start Time 09:50 Visit Stop Time 10:30 Total Visit Minutes 40 Visit Number 13 Number of SALES SUPERVISOR Visits 1 Evaluation Information Evaluation Date 04/20/22 Precautions Precautions 2 weeks new:IVC filter over anterior R hip under the skin for blood clot management for potentially up to 3 months. Cleared by physician, continue activity with therapy. PT-OP-B Current Condition Start: 04/16/22 18:30 Freq: Status: Active Protocol: Document 04/20/22 10:42 LRN (Rec: 04/20/22 11:25 LRN [id number]) Current Condition History of Current Condition Onset Date 6 weeks ago Current Complaints Back (R>L) and R hip pain. History of Current Condition Insidious onset 6 weeks ago, 1 month ago took an RV trip and made pain worse. Just started Amitriptyline for scotum pain which makes him sleepy. Prior Treatments and Tests None. 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 Future Testing and Treatments Planned none. Treatment Goals Patient/Caregiver Goals Pt goal with therapy: -Reduce the back pain to relieve the need for wearing the back brace, and -Reduce R hip pain into the anterior thigh in order to reduce need for Tylenol daily at night before bed (used to help sleep). 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 Medications for blood pressure and urine flow. Current Functional Impairments (Reported) Functional Limitations- ADL's Must wear a soft back brace to sit > 1/2 hr. Wears the back brace daily except when on feet and walking, doesn't need . Functional Limitations- Other Must wear soft brace to sit in his primary chair for >30 minutes. 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 Kidney removed 2012. PT-OP-C Subjective Start: 04/16/22 18:30 Freq: Status: Active Protocol: Document 06/14/22 09:51 NBM (Rec: 06/14/22 10:35 NBM [id number]) OP-PT Subjective Patient Comments Patient Comments Pt states his surgery to remove tumor from ureter is scheduled for 06/29/22 and he wants to do COVID isolation one week prior so will cancel next appointment. He will be in touch regarding scheduling as soon as he knows. PT-OP-H Neuro Start: 04/16/22 18:30 Freq: Status: Active Protocol: Document 04/20/22 10:42 LRN (Rec: 04/20/22 11:25 LRN [id number]) Sensation Evaluation Gross Sensation Gross Sensation WNL PT-OP-J Posture/Palpation/Skin Start: 04/16/22 18:30 Freq: Status: Active Protocol: Document 04/20/22 10:42 LRN (Rec: 04/20/22 11:25 LRN [id number]) Posture Evaluation Position Standing T-Spine Posture Increased Kyphosis L-Spine Posture Increased Lordosis,Shifted Left Shoulder Posture (R) Elevated Scapula Posture (L) Elevated Pelvis Posture Neutral Palpation Assessment Location PSIS Palpation Location R PSIS Palpation Findings Tenderness Palpation Details Sleeping on L side caused in R PSIS that radiated to anterior R thigh Low Back Palpation Location Sacrum R lateral border Palpation Findings Tenderness PT-OP-K Range of Motion Start: 04/16/22 18:30 Freq: Status: Active Protocol: Document 06/07/22 08:10 LRN (Rec: 06/07/22 09:04 LRN [id number]) Hip Goniometric Range of Motion Hip Right Passive Straight Leg Raise 50 Left Passive Straight Leg Raise 65 PT-OP-L Special Tests Start: 04/16/22 18:30 Freq: Status: Active Protocol: Document 04/20/22 10:42 LRN (Rec: 04/20/22 11:25 LRN [id number]) Special Tests Lumbar Spine Special Tests Nickolas Test Results + bilaterally Straight Leg Raise Test Results 65 L, 80 R Standing Flexion Test Results negative Vertical Spine Loading Test Results negative PT-OP-M Strength Start: 04/16/22 18:30 Freq: Status: Active Protocol: Document 04/20/22 10:42 LRN (Rec: 04/20/22 11:25 LRN [id number]) Hip Strength Hip Manual Muscle Testing Right Extension (S1) 5 Normal Comments Pain in LB with hip Ext testing Left Extension (S1) 5 Normal PT-OP-Q Treatments Start: 04/16/22 18:30 Freq: Status: Active Protocol: Document 06/14/22 09:51 NBM (Rec: 06/14/22 10:35 NBM [id number]) Therapeutic Exercises Supine Exercises Piriformis Supine Exercise Name Piriformis Side bilateral Reps/Minutes Hold 10 breaths (1 breath = 3 secs) Standing Exercises QL Doorway stretch Side right Reps/Minutes 2 x 15sec Comments added to HEP Other Exercises Bird Dog Other Exercise Name UE only HEP review Side bilateral Reps/Minutes x8 ea Comments weightshift over wrists Thread the Needle Other Exercise Name HEP review Side bilateral Reps/Minutes x5 ea Cat/Cow Other Exercise Name Cat/Cow Reps/Minutes x5 Comments Cuing to flex at L/S vs T/S with combined head mvmt Manual Therapy Treatment Soft Tissue Mobilization L ITB Body Location R glutes Mobilization Type Rolling Intensity/Depth Moderate Body Position Sidelying R Lumbar Body Location R QL & B ES Mobilization Type Rolling Intensity/Depth Moderate Body Position Sidelying Self-Care/Home Management Treatment Education Patient Education Home Exercise Program Other Education Added QL Doorway stretch to HEP - HO given. PT-OP-R Modalities Start: 04/16/22 18:30 Freq: Status: Active Protocol: Document 06/14/22 09:51 NBM (Rec: 06/14/22 10:35 NBM [id number]) Hot Pack/Cold Pack Treatment Cold Pack Location lumbar Patient Position Hooklying Treatment Duration (minutes) 10 Patient Tolerance Good PT-OP-T Assessment and Plan Start: 04/16/22 18:30 Freq: Status: Active Protocol: Document 06/14/22 09:51 NBM (Rec: 06/14/22 10:35 NBM [id number]) Physical Therapy Assessment Goals Three Impairment R hip>anterior thigh pain rated 4-7/10, L hip pain rated 1/10. Short Term Goal (STG) Educate pt in proper sitting and standing posture using external supports as needed. STG Duration 04/27/22 (04/22/22: MET GOAL) Laser Specialist Goal (LTG) Decrease R hip/anterior thigh pain in order to reduce need for Tylenol nightly before bedtime. 05/19/22: progressing Tylenol 500 mg 3-4x day and before bed for pain control. Dr Hand reassured is ok. 06/02/22- Still having R anterior hip pn. Him and doctor believe it is from blood clot. Still taking tylenol 3-4x a day. LTG Duration 07/13/22 slow progression 06/02 Two Impairment Reduce back pain Impairment Back pain rated 3/10 (R worse than L), interrupting ability to sleep at night. Short Term Goal (STG) Pt will be educated in proper sleep posturing to reduce onset of back pain. STG Duration 04/21/22 (04/22/22: MET GOAL) Laser Specialist Goal (LTG) Decrease back pain to a level to relieve the need for wearing the back brace 05/21/22: Pt isn't wearing back brace currently due to not driving long distances. 06/02/22- no changes. Will use [employer]ac[employer] wrap to provide heat on trip to [place]. LTG Duration 07/13/22 One Impairment Lacks appropriate self care HEP. Short Term Goal (STG) Improve L PSLR and normalize trunk posture (eliminate L lateral shift) with self care HEP. 05/31 STG Duration 05/07/22 [facility] Goal (LTG) Pt will be independent in a self care HEP of trunk ( improve rot R>L, & SB R>L) and hip mobility (improve Ilipsoas mobility), and hip strength as appropriate. 04/26/22: Added to HEP: Open Book stretch, Thread the Needle, hooklying Lower Trapezius push down - HO given . LTG Duration 07/13/22 Assessment Summary Assessment Treatment focus on HEP review and manual therapeutic intervention. Quadruped core ex's reviewed with cue for weightshifting over wrists. Palpable tightness in R glutes , QL and erector spinae improves with manual. QL doorway stretch added to HEP - HO given. Pt will contact front desk lead scheduling as he gets more information re: tumor removal surgery now scheduled 06/29. Physical Therapy Plan Frequency and Duration Frequency of Treatment 2x/Week Duration of treatment (weeks) 12 Plan of Care Start Date 04/20/22 Plan of Care End Date 07/13/22 Therapeutic Interventions Therapeutic Interventions Home Exercise Program,Manual Therapy,Patient/Caregiver Education,Self-Care/Home Management,Soft Tissue Mobilization,Therapeutic Exercises Modalities Cold Pack/Ice Massage,Hot Packs Next Visit Focus/Plan Next Note Type Treatment Note Next Visit Plan Pt to resume PT post-06/29 surgery to remove tumor in ureter. POC: Try shoulder ext in sitting, pec stretch to support posture and pain reduction. HEP: correction for L lateral trunk shift). Cont to progress Hip/core strength and issue ex's (pec stretch) for core/pelvic stability and hip strengthening as needed. Ther Ex & HEP of trunk ( improve rot R>L, & SB R>L). Modalities of ice/heat only due to Cancer ongoing history.
--- NOTE | 2022-06-15 08:36 | PT-OP ANOTE ---
Called and spoke with Sachin regarding PT scheduling before and after his 06/29 robotic surgery to remove tumor from ureter. Pt plans to isolate at least one week prior to surgery so will cancel next three PT appointments (06/22, 06/25, 06/29) - I will notify Schedulers. He will keep appointments post-surgery starting 07/02 and will reach out to surgeon's office to find out if he is expected to continue PT after surgery - he understands that he will need a referral note from the surgeon to clear him for PT, or will need to be discharged, and will notify our Automatic Dry Starch Operator accordingly.
--- NOTE | 2022-07-12 12:02 | PT-OP ANOTE ---
Per phone conversation the pt states he will be going to chemo soon; therefore requests DC from PT for now. States if he needs further therapy he understands he will need a new referral from a physician. Pt is being discharged from therapy at pt request.
--- NOTE | 2022-07-12 12:13 | PT.OPDS ---
Current Diagnoses Postural kyphosis, site unspecified (06/14/22) Low back pain, unspecified (06/14/22) Visit Care Team Role Provider Type Adebayo Hand MD Family Provider Physician Primary Care Provider Specialty: Internal Medicine Address: [address] [place] [address], [address], [place], [address] Email: [email or web address] Chapin Attending Provider Physician Referring Provider Specialty: Family Practice Address: [facility], [address], [place], [address] Phone: Fax: Email: [email or web address] Visit Number Visit Number 13 Discharge Summary PT-OP-B Current Condition Start: 04/16/22 18:30 Freq: Status: Active Protocol: Document 04/20/22 10:42 LRN (Rec: 04/20/22 11:25 LRN [id number]) Current Condition History of Current Condition Onset Date 6 weeks ago Current Complaints Back (R>L) and R hip pain. History of Current Condition Insidious onset 6 weeks ago, 1 month ago took an RV trip and made pain worse. Just started Amitriptyline for scotum pain which makes him sleepy. Prior Treatments and Tests None. 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 Future Testing and Treatments Planned none. Treatment Goals Patient/Caregiver Goals Pt goal with therapy: -Reduce the back pain to relieve the need for wearing the back brace, and -Reduce R hip pain into the anterior thigh in order to reduce need for Tylenol daily at night before bed (used to help sleep). 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 Medications for blood pressure and urine flow. Current Functional Impairments (Reported) Functional Limitations- ADL's Must wear a soft back brace to sit > 1/2 hr. Wears the back brace daily except when on feet and walking, doesn't need . Functional Limitations- Other Must wear soft brace to sit in his primary chair for >30 minutes. 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 Kidney removed 2012. 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 He will be in touch regarding scheduling as soon as he knows. PT-OP-H Neuro Start: 04/16/22 18:30 Freq: Status: Active Protocol: Document 04/20/22 10:42 LRN (Rec: 04/20/22 11:25 LRN [id number]) Sensation Evaluation Gross Sensation Gross Sensation WNL PT-OP-J Posture/Palpation/Skin Start: 04/16/22 18:30 Freq: Status: Active Protocol: Document 04/20/22 10:42 LRN (Rec: 04/20/22 11:25 LRN [id number]) Posture Evaluation Position Standing T-Spine Posture Increased Kyphosis L-Spine Posture Increased Lordosis,Shifted Left Shoulder Posture (R) Elevated Scapula Posture (L) Elevated Pelvis Posture Neutral Palpation Assessment Location PSIS Palpation Location R PSIS Palpation Findings Tenderness Palpation Details Sleeping on L side caused in R PSIS that radiated to anterior R thigh Low Back Palpation Location Sacrum R lateral border Palpation Findings Tenderness PT-OP-K Range of Motion Start: 04/16/22 18:30 Freq: Status: Active Protocol: Document 06/07/22 08:10 LRN (Rec: 06/07/22 09:04 LRN [id number]) Hip Goniometric Range of Motion Hip Right Passive Straight Leg Raise 50 Left Passive Straight Leg Raise 65 PT-OP-L Special Tests Start: 04/16/22 18:30 Freq: Status: Active Protocol: Document 04/20/22 10:42 LRN (Rec: 04/20/22 11:25 LRN [id number]) Special Tests Lumbar Spine Special Tests Nickolas Test Results + bilaterally Straight Leg Raise Test Results 65 L, 80 R Standing Flexion Test Results negative Vertical Spine Loading Test Results negative PT-OP-M Strength Start: 04/16/22 18:30 Freq: Status: Active Protocol: Document 04/20/22 10:42 LRN (Rec: 04/20/22 11:25 LRN [id number]) Hip Strength Hip Manual Muscle Testing Right Extension (S1) 5 Normal Comments Pain in LB with hip Ext testing Left Extension (S1) 5 Normal PT-OP-T Assessment and Plan Start: 04/16/22 18:30 Freq: Status: Active Protocol: Document 07/12/22 12:05 LRN (Rec: 07/12/22 12:12 LRN [id number]) Physical Therapy Assessment Goals Three Impairment R hip>anterior thigh pain rated 4-7/10, L hip pain rated 1/10. Short Term Goal (STG) Educate pt in proper sitting and standing posture using external supports as needed. 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 05/19/22: progressing Tylenol 500 mg 3-4x day and before bed for pain control. Dr Hand reassured is ok. 06/02/22- Still having R anterior hip pn. Him and doctor believe it is from blood clot. Still taking tylenol 3-4x a day. LTG Duration 07/13/22 (slow progression , pt unavailable for final assessment) Two Impairment Reduce back pain Impairment Back pain rated 3/10 (R worse than L), interrupting ability to sleep at night. Short Term Goal (STG) Pt will be educated in proper sleep posturing to reduce onset of back pain. STG Duration 04/21/22 (04/22/22: MET GOAL) Electric Motor Fitter Goal (LTG) Decrease back pain to a level to relieve the need for wearing the back brace 05/21/22: Pt isn't wearing back brace currently due to not driving long distances. 06/02/22- no changes. Will use [employer] wrap to provide heat on trip to [place]. LTG Duration 07/13/22 (07/12/22: pt unavailable for final assessment) One Impairment Lacks appropriate self care HEP. Short Term Goal (STG) Improve L PSLR and normalize trunk posture (eliminate L lateral shift) with self care HEP. 05/31 STG Duration 05/07/22 (07/12/22: pt unavailable for final assessment) Fdc Goal (LTG) Pt will be independent in a self care HEP of trunk ( improve rot R>L, & SB R>L) and hip mobility (improve Ilipsoas mobility), and hip strength as appropriate. 04/26/22: Added to HEP: Open Book stretch, Thread the Needle, hooklying Lower Trapezius push down - HO given . 06/14/22: Added to HEP: QL Doorway; stretch - HO given. LTG Duration 07/13/22 (Progressed 06/14/22, 07/12/22: pt unavailable for final assess) Assessment Summary Assessment Pt has attended 13 physical visits, including the evaluation. He achieved the education goals, otherwise progress was very slow. Minimal improvement was made at reducing his R hip and LB pain. 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 The pt is starting chemotherapy and at pt request is being discharged from physical therapy. The pt will request PT referral if needed in the future. Physical Therapy Plan Discharge Physical Therapy Discharge Reasons Patient Request Discharge Comments Thank you for your referral.
== END 2022-07-14 09:34 | disposition home or self-care (01) ==
LOC: PHYS 09:45
PROVIDERS: Family Provider Internal Medicine; PCP Internal Medicine; Referring Provider Nurse Practitioner Family; Visit Provider Nurse Practitioner Family
DX: M54.50 Low back pain, unspecified (principal); M40.00 Postural kyphosis, site unspecified
CPT/HCPCS: 97110; 97116; 97140; 97162; 97530; 97535

== ENCOUNTER 2022-08-09 16:20 | Inpatient (IN) | payer MEDICARE, OTHER, SELFPAY ==
[2022-08-09] VITALS (27 sets, daily range): BP systolic 91–120; BP diastolic 51–73; PULSE 106–121; RESP 10–26; TEMP 36.5–36.8; O2SAT 92–98; BMI 19.5
[2022-08-09] MEDS: SODIUM CHLORIDE 0.9% 1,000 ML 1000 ML IV (16:56)
[2022-08-09 17:17] LABS: Add Manual Diff / Slide Review NO; Basophils Absolute Auto 100 /uL (0-100); Basophils Percent Auto 0.2 % (0-2); Eosinophils Absolute Auto 500 /uL (0-450); Eosinophils Percent Auto 1.4 % (2-4); Hematocrit 29.5 % (41-53); Hemoglobin 9.3 g/dL (13.5-17.5); Lymphocytes Absolute Auto 1400 /uL (1100-4500); Lymphocytes Percent Auto 3.9 % (25-40); Mean Corpuscular HGB Conc 31.7 % (30-36); Mean Corpuscular Hemoglobin 25.1 PG (26-34); Mean Corpuscular Volume 79.4 fL (80-100); Monocytes Absolute Auto 2100 /uL (0-900); Monocytes Percent Auto 5.8 % (3-14); Neutrophils Absolute Auto 32100 /uL (1500-7000); Neutrophils Percent Auto 88.7 % (50-75); Platelet Count 392 X10^3/uL (150-400); Red Blood Cell Count 3.72 X10^6/uL (4.5-5.9); Red Cell Distribution Width 15.6 % (11.6-14.8)
[2022-08-09 17:18] LABS: White Blood Cell Count 36.2 X10^3/uL (4.5-11.0)
[2022-08-09 17:21] LABS: Alanine Aminotransferase 22 IU/L (<50); Alkaline Phosphatase 105 U/L (38-126); Aspartate Aminotransferase 23 IU/L (17-59); BUN Creatinine Ratio 20.9 (6-22); Bilirubin Total 1.1 mg/dL (0.2-1.3); Blood Urea Nitrogen 34 mg/dL (9-20); Carbon Dioxide 27 mmol/L (22-32); Chloride 93 mmol/L (98-107); Creatine Kinase < 20 U/L (55-170); Estimated Glomerular Filt Rate 44 mL/min (>60); Glucose 104 mg/dL (80-110); HEMOLYSIS < 15 (0-50); Lipase 27 U/L (23-300); Magnesium 2.1 mg/dL (1.6-2.3); Potassium 4.8 mmol/L (3.4-5.1); Sodium 132 mmol/L (137-145); Total Protein 7.5 g/dL (6.3-8.2)
[2022-08-09 17:23] LABS: Lactate (Lactic Acid) 4.7 mmol/L (0.7-2.1)
[2022-08-09 17:24] LABS: Calcium 12.9 mg/dL (8.4-10.2)
--- NOTE | 2022-08-09 17:30 | ED_ITS ---
HPI - Weakness <Ashutosh Mckenna, DO - Last Filed: 08/10/22 06:59> General Chief complaint: Weakness Stated complaint: hypotensive Time Seen by Provider: 08/09/22 16:24 History of Present Illness HPI Narrative: 77-year-old male former smoker with history of pelvic mass, renal cancer status post nephrectomy, with recent urologic procedure in [place] presents by EMS for evaluation of low blood pressure, feeling generally unwell and abnormal labs. Patient had been scheduled to have a replacement of his Rai filter at [facility] and during preop was found to have abnormal labs and was sent home. He was recently referred to local oncology and is scheduled to start chemotherapy soon and has a scheduled telehealth consultation with Oncology from tomorrow to obtain a 2nd opinion. He denies any headache or blurred vision. He has no chest pain or shortness of breath. He has some generalized abdominal pain, worse on the right than left without obvious provocation or palliation and denies obvious urinary or bowel changes. Patient had right-sided laparoscopic hand assisted radical nephrectomy in 2012 with renal cell carcinoma and no evidence of lymphovascular invasion. Patient had a few episodes of gross hematuria in 2016 and received a cystoscopy with biopsy. In February of 2022 he had MRI noting evidence of prior nephrectomy and evidence suspicious for soft tissue mass in the right pelvis. Patient had IVC filter placed in April of 2022. In June of 2022 patient underwent robotic laparoscopic pelvic mass decision in [place] and findings were consistent with invasive carcinoma consistent with metastatic urothelial carcinoma high- grade. Related Data Home Medications Medication Instructions Recorded Confirmed tamsulosin 0.4 mg capsule (Flomax) 0.4 mg PO BID #0 caps 02/28/19 08/09/22 melatonin 5 mg tablet 5 mg PO BEDTIME PRN Insomnia 09/09/20 08/09/22 acetaminophen 500 mg tablet 500 mg PO ONCE PRN Pain (Scale 05/18/22 08/09/22 (Tylenol Extra Strength) Score 4-6) gabapentin 300 mg capsule 300 mg PO DAILY 08/09/22 08/09/22 nystatin 100,000 unit/mL oral 1 unit PO DIRECTED thrush 08/09/22 08/09/22 suspension Previous Rx's Medication Instructions Recorded lorazepam 1 mg tablet 0.5 - 1 mg PO TID PRN anxiety #10 07/12/22 tabs Allergies Allergy/AdvReac Type Severity Reaction Status Date / Time adhesive Allergy Mild REDNESS, Verified 08/09/22 19:04 ITCHING No Known Drug Allergies Allergy Unknown Verified 08/09/22 19:04 [NO KNOWN DRUG ALLERGIES] Raw apples AdvReac Intermediate GI upset Uncoded 07/23/22 11:17 Review of Systems <Ashutosh Mckenna DO - Last Filed: 08/10/22 06:59> Review of Systems Narrative: GENERAL: See HPI HEENT: Denies sinus pain, ear pain, sore throat, difficulty swallowing, dizziness. RESPIRATORY: See HPI CARDIOVASCULAR: See HPI GASTROINTESTINAL: See HPI : Denies dysuria, frequency, incontinence, hematuria, urinary retention. MUSCULOSKELETAL: denies weakness, joint pain, or bony pain SKIN: Denies rash, skin lesions, or other NEUROLOGIC: Denies weakness, headache, numbness, change in speech, confusion, seizures, incoordination. PSYCHIATRIC: No concerning psychosocial issues. 12 point review of systems is negative except for those stated above Patient History <Ashutosh Mckenna DO - Last Filed: 08/10/22 06:59> Medical History Acne (1961) Bladder cancer (2016) Bladder cancer BPH (benign prostatic hyperplasia) Chicken pox Complete tear of left rotator cuff (01/14/16) DVT (deep venous thrombosis) Essential hypertension (07/23/15) Hayfever (1963) History of adenomatous polyp of colon Kidney stones (2010) Malignant neoplasm of kidney (01/12/13) Measles Mumps Obstructive sleep apnea (09/07/11) Stage 3 chronic kidney disease (01/03/13) Thrombocytopenia Vertigo Surgical History Anesthesia History of nephrectomy (12/2012) S/P insertion of IVC (inferior vena caval) filter (05/14/22) Status post rotator cuff repair (2003) Status post rotator cuff repair (2012) Family History Father No problems noted. Mother No problems noted. Sister No problems noted. 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 leisure activities: music, reading and other Smoking Status: Former smoker Tobacco: How many years used: 10 Smokeless tobacco user: other quit status: quit date established second hand exposure: No alcohol intake: current substance use type: does not use Smoking Status: Former smoker alcohol intake frequency: 0-2 drinks per day Substance Use Type: marijuana Exam <Ashutosh Mckenna DO - Last Filed: 08/10/22 06:59> Initial Vital Signs Initial Vital Signs: Vital Signs Pulse Rate 114 H 08/09/22 16:29 Respiratory Rate 16 08/09/22 16:29 Blood Pressure 91/55 L 08/09/22 16:29 Pulse Oximetry 96 08/09/22 16:29 Oxygen Delivery Method 08/09/22 16:29 <Renetta Gutierrez MD - Last Filed: 08/10/22 07:34> Initial Vital Signs Initial Vital Signs: Vital Signs Pulse Rate 114 H 08/09/22 16:29 Respiratory Rate 16 08/09/22 16:29 Blood Pressure 91/55 L 08/09/22 16:29 Pulse Oximetry 96 08/09/22 16:29 Oxygen Delivery Method 08/09/22 16:29 General: Chronically ill-appearing, pale dry week HEENT: Dry mucous membranes, normal sclera with reactive pupils, Respiratory: Lungs are clear to auscultation, no wheezing no rales no rhonchi. Full and symmetrical air movement Cardiac: Regular rate and rhythm no murmurs no bruits Abdomen: Soft, diffuse tenderness right lower quadrant right flank without rebound or guarding, Skin: Pale, Warm and dry, no rashes Neurologic: Globally weak Grossly neurologically intact with no obvious asymmetries or abnormalities Extremities: No trauma, significant radicular right leg pain most comfortable with leg flexed and externally rotated Psych: Cooperative, fatigued Course <Ashutosh Mckenna DO - Last Filed: 08/10/22 06:59> Orders Ordered: Acetaminophen (Acetaminophen 325 Mg Tablet) 650 mg PO Q6HR PRN PRN Reason: Fever/Mild Pain (1-3) Hydromorphone HCl (Hydromorphone 0.5 Mg Inj) 0.5 mg IV Q1HR PRN PRN Reason: Pain, Moderate (4-6) Last Admin: 08/10/22 05:47 Dose: 0.5 mg Documented By: Admin: 08/10/22 02:40 Dose: 0.5 mg Documented By: Sodium Chloride (Normal Saline 0.9%) 1,000 mls @ 125 mls/hr IV CONT MELONIE Last Admin: 08/10/22 07:26 Dose: 125 mls/hr Documented By: Infusion: 08/10/22 07:26 Dose: 125 mls/hr Documented By: Admin: 08/09/22 23:29 Dose: 125 mls/hr Documented By: SEAN Ondansetron HCl (Ondansetron 4 Mg/2 Ml Inj) 4 mg IV Q4HR PRN PRN Reason: Nausea And Vomiting Discontinued Medications Calcitonin Talala (Calcitonin,Talala 400 Units/2 Ml Mdv) 300 units SUBCUT NOW ONE Stop: 08/09/22 21:53 Last Admin: 08/09/22 23:54 Dose: Not Given Documented By: SEAN Calcitonin Talala (Calcitonin,Talala 400 Units/2 Ml Mdv) 300 units SUBCUT NOW ONE Stop: 08/10/22 07:01 Last Admin: 08/10/22 07:25 Dose: 300 units Documented By: BANDAR Hydromorphone HCl (Hydromorphone 0.5 Mg Inj) 0.5 mg IV NOW ONE Stop: 08/09/22 18:26 Last Admin: 08/09/22 18:28 Dose: 0.5 mg Documented By: MERISSA Hydromorphone HCl (Hydromorphone 1 Mg Inj) 1 mg IV NOW ONE Stop: 08/09/22 21:39 Last Admin: 08/09/22 22:03 Dose: 1 mg Documented By: NEL Sodium Chloride (Normal Saline 0.9%) 1,000 mls @ 1,000 mls/hr IV BOLUS ONE Stop: 08/09/22 17:23 Last Infusion: 08/09/22 17:50 Dose: 0 mls/hr Documented By: Admin: 08/09/22 16:56 Dose: 1,000 mls/hr Documented By: MERISSA Lactated Ringer's (Lactated Ringers) 2,177.25 mls @ 725.75 mls/hr 30 ml/kg infuse over 3 hr (2177.25 ml) IV NOW ONE Stop: 08/09/22 20:30 Last Infusion: 08/09/22 19:37 Dose: 0 mls/hr Documented By: Infusion: 08/09/22 19:35 Dose: 0 mls/hr Documented By: Admin: 08/09/22 17:45 Dose: 725.75 mls/hr Documented By: MERISSA Ceftriaxone Sodium 2,000 mg/ (Sodium Chloride) 100 mls @ 200 mls/hr IV NOW ONE Stop: 08/09/22 17:32 Last Infusion: 08/09/22 18:18 Dose: 0 mls/hr Documented By: DULCE MARIA Admin: 08/09/22 17:46 Dose: 200 mls/hr Documented By: MERISSA Vital Signs Vital signs: Vital Signs - 8 hr 08/09/22 16:29 08/09/22 16:40 08/09/22 16:42 Temperature 98.2 F Pulse Rate 114 H 109 H Respiratory Rate 16 18 Blood Pressure 91/55 L Pulse Oximetry 96 95 Oxygen Delivery Method Room Air 08/09/22 17:00 08/09/22 17:01 08/09/22 17:01 Temperature Pulse Rate 119 H 115 H Respiratory Rate 26 H 19 Blood Pressure 114/58 L Pulse Oximetry Oxygen Delivery Method 08/09/22 17:30 08/09/22 17:31 08/09/22 17:31 Temperature Pulse Rate 121 H 117 H Respiratory Rate 20 17 Blood Pressure 112/53 L Pulse Oximetry Oxygen Delivery Method 08/09/22 18:00 08/09/22 18:00 08/09/22 18:15 Temperature Pulse Rate 108 H Respiratory Rate 18 17 Blood Pressure 117/61 Pulse Oximetry 97 98 Oxygen Delivery Method Room Air 08/09/22 18:15 08/09/22 18:30 08/09/22 18:30 Temperature Pulse Rate 108 H Respiratory Rate 16 Blood Pressure 109/56 L 118/61 Pulse Oximetry 98 Oxygen Delivery Method 08/09/22 18:52 08/09/22 18:52 08/09/22 19:00 Temperature Pulse Rate 109 H Respiratory Rate 10 L Blood Pressure 104/73 109/54 L Pulse Oximetry 96 Oxygen Delivery Method 08/09/22 19:00 08/09/22 19:15 01/16/23 19:15 Temperature Pulse Rate 106 H 107 H Respiratory Rate 17 13 Blood Pressure 112/55 L Pulse Oximetry 94 95 Oxygen Delivery Method 08/09/22 19:30 08/09/22 19:30 Temperature Pulse Rate 109 H Respiratory Rate 17 Blood Pressure 112/55 L Pulse Oximetry 95 Oxygen Delivery Method Room Air <Renettajohan Gutierrez MD - Last Filed: 08/10/22 07:34> Course Course Narrative: Severe Sepsis Criteria [x ] bacterial source of infection suspected and documented [ ] 2 SIRS Criteria met [ x] HR >90 [ ] RR >20 [ ] fever or hypothermia [x ] leukocytosis/leukopenia/bandemia [ ] Evidence of at least 1 organ system dysfunction [ x ] Lactate > 2 [ x ] BP < 90 or MAP <65, >40mm decrease from normal baseline [ ] Creat > 2.0 [ ] T. Bili > 2.0 [ ] platelet count < 100k [ ] altered mental status [ ] mechanical ventilation [ ] provider documentation of severe sepsis Severe Sepsis Determination. the patient has been screened and [ x ] DOES meet criteria for severe sepsis [ ] DOES NOT meet criteria for severe sepsis Goal directed treatment Within 3 hours [ x] blood cx drawn prior to abx [ x] broad spectrum abx started [ x] lactic acid level checked [ x] lactic redrawn within 6 hours if >2.0 Septic Shock Criteria [ ] lactic > 4 at any time [ ] SBP ,90 or MAP , 65 [ ] documentation of septic shock Time Septic Shock diagnosed: [ ] Septic Shock Determination. the patient has been screened and [ x] DOES meet criteria for septic shock [ ] DOES NOT meet criteria for septic shock Goal directed therapy within 3 hours of septic shock or initial hypotension [ ] 30ml/kg fluid [ x ] ABW used [ ] IBW (33.6) used due to BMI > 30 [ ] patient or advocate declining fluid administration after shared decision making conversation Clinical reason for NOT initiating fluid bolus: Within 6 hours (if continued hypotension after fluids or initial lactate >4) [ ] repeat volume status and tissue perfusion assessment documented after fluid bolus was completed at [Date/Time] Must include vital signs, cardiopulmonary exam, capillary refill, peripheral pulse evaluation, skin exam [ ] Initiate vasopressor therapy if persistent hypotension after adequate fluid bolus Orders Ordered: Acetaminophen (Acetaminophen 325 Mg Tablet) 650 mg PO Q6HR PRN PRN Reason: Fever/Mild Pain (1-3) Hydromorphone HCl (Hydromorphone 0.5 Mg Inj) 0.5 mg IV Q1HR PRN PRN Reason: Pain, Moderate (4-6) Last Admin: 08/10/22 05:47 Dose: 0.5 mg Documented By: Admin: 08/10/22 02:40 Dose: 0.5 mg Documented By: Sodium Chloride (Normal Saline 0.9%) 1,000 mls @ 125 mls/hr IV CONT MELONIE Last Admin: 08/10/22 07:26 Dose: 125 mls/hr Documented By: Infusion: 08/10/22 07:26 Dose: 125 mls/hr Documented By: Admin: 08/09/22 23:29 Dose: 125 mls/hr Documented By: SEAN Ondansetron HCl (Ondansetron 4 Mg/2 Ml Inj) 4 mg IV Q4HR PRN PRN Reason: Nausea And Vomiting Discontinued Medications Calcitonin Talala (Calcitonin,Talala 400 Units/2 Ml Mdv) 300 units SUBCUT NOW ONE Stop: 08/09/22 21:53 Last Admin: 08/09/22 23:54 Dose: Not Given Documented By: SEAN Calcitonin Talala (Calcitonin,Talala 400 Units/2 Ml Mdv) 300 units SUBCUT NOW ONE Stop: 08/10/22 07:01 Last Admin: 08/10/22 07:25 Dose: 300 units Documented By: BANDAR Hydromorphone HCl (Hydromorphone 0.5 Mg Inj) 0.5 mg IV NOW ONE Stop: 08/09/22 18:26 Last Admin: 08/09/22 18:28 Dose: 0.5 mg Documented By: MERISSA Hydromorphone HCl (Hydromorphone 1 Mg Inj) 1 mg IV NOW ONE Stop: 08/09/22 21:39 Last Admin: 08/09/22 22:03 Dose: 1 mg Documented By: NEL Sodium Chloride (Normal Saline 0.9%) 1,000 mls @ 1,000 mls/hr IV BOLUS ONE Stop: 08/09/22 17:23 Last Infusion: 08/09/22 17:50 Dose: 0 mls/hr Documented By: Admin: 08/09/22 16:56 Dose: 1,000 mls/hr Documented By: MERISSA Lactated Ringer's (Lactated Ringers) 2,177.25 mls @ 725.75 mls/hr 30 ml/kg infuse over 3 hr (2177.25 ml) IV NOW ONE Stop: 08/09/22 20:30 Last Infusion: 08/09/22 19:37 Dose: 0 mls/hr Documented By: Infusion: 08/09/22 19:35 Dose: 0 mls/hr Documented By: Admin: 08/09/22 17:45 Dose: 725.75 mls/hr Documented By: MERISSA Ceftriaxone Sodium 2,000 mg/ (Sodium Chloride) 100 mls @ 200 mls/hr IV NOW ONE Stop: 08/09/22 17:32 Last Infusion: 08/09/22 18:18 Dose: 0 mls/hr Documented By: DULCE MARIA Admin: 08/09/22 17:46 Dose: 200 mls/hr Documented By: MERISSA Vital Signs Vital signs: Vital Signs - 8 hr 08/09/22 16:29 08/09/22 16:40 08/09/22 16:42 Temperature 98.2 F Pulse Rate 114 H 109 H Respiratory Rate 16 18 Blood Pressure 91/55 L Pulse Oximetry 96 95 Oxygen Delivery Method Room Air 08/09/22 17:00 08/09/22 17:01 08/09/22 17:01 Temperature Pulse Rate 119 H 115 H Respiratory Rate 26 H 19 Blood Pressure 114/58 L Pulse Oximetry Oxygen Delivery Method 08/09/22 17:30 08/09/22 17:31 08/09/22 17:31 Temperature Pulse Rate 121 H 117 H Respiratory Rate 20 17 Blood Pressure 112/53 L Pulse Oximetry Oxygen Delivery Method 08/09/22 18:00 08/09/22 18:00 08/09/22 18:15 Temperature Pulse Rate 108 H Respiratory Rate 18 17 Blood Pressure 117/61 Pulse Oximetry 97 98 Oxygen Delivery Method Room Air 08/09/22 18:15 08/09/22 18:30 08/09/22 18:30 Temperature Pulse Rate 108 H Respiratory Rate 16 Blood Pressure 109/56 L 118/61 Pulse Oximetry 98 Oxygen Delivery Method 08/09/22 18:52 08/09/22 18:52 08/09/22 19:00 Temperature Pulse Rate 109 H Respiratory Rate 10 L Blood Pressure 104/73 109/54 L Pulse Oximetry 96 Oxygen Delivery Method 08/09/22 19:00 08/09/22 19:15 08/09/22 19:15 Temperature Pulse Rate 106 H 107 H Respiratory Rate 17 13 Blood Pressure 112/55 L Pulse Oximetry 94 95 Oxygen Delivery Method 08/09/22 19:30 08/09/22 19:30 Temperature Pulse Rate 109 H Respiratory Rate 17 Blood Pressure 112/55 L Pulse Oximetry 95 Oxygen Delivery Method Room Air MDM - Weakness <Ashutosh Mckenna, DO - Last Filed: 08/10/22 06:59> Lab Data Result diagrams: 08/10/22 05:34 08/10/22 05:34 Labs: Lab Results 08/09/22 08/09/22 08/09/22 Range/Units 16:30 16:30 16:30 WBC 36.2 H* (4.5-11.0) X10^3/uL RBC 3.72 L (4.5-5.9) X10^6/uL Hgb 9.3 L (13.5-17.5) g/dL Hct 29.5 L (41-53) % MCV 79.4 L (80-100) fL MCH 25.1 L (26-34) PG MCHC 31.7 (30-36) % RDW 15.6 H (11.6-14.8) % Plt Count 392 (150-400) X10^3/uL Neut % (Auto) 88.7 H (50-75) % Lymph % (Auto) 3.9 L (25-40) % [place]lee % (Auto) 5.8 (3-14) % Eos % (Auto) 1.4 L (2-4) % Baso % (Auto) 0.2 (0-2) % Neut # (Auto) 64238 H (1721-1462) /uL Lymph # (Auto) 1400 (7044-2145) /uL Greenlee # (Auto) 2100 H (0-900) /uL Eos # (Auto) 500 H (0-450) /uL Baso # (Auto) 100 (0-100) /uL Sodium 132 L (137-145) mmol/L Potassium 4.8 (3.4-5.1) mmol/L Chloride 93 L (98-107) mmol/L Carbon Dioxide 27 (22-32) mmol/L BUN 34 H (9-20) mg/dL Creatinine 1.63 H (0.66-1.25) mg/dL Estimated GFR 44 L (>60) mL/min BUN/Creatinine Ratio 20.9 (6-22) Glucose 104 (80-110) mg/dL Lactate 4.7 H* (0.7-2.1) mmol/L Calcium 12.9 H* (8.4-10.2) mg/dL Magnesium 2.1 (1.6-2.3) mg/dL Total Bilirubin 1.1 (0.2-1.3) mg/dL AST 23 (17-59) IU/L ALT 22 (<50) IU/L Alkaline Phosphatase 105 (38-126) U/L Total Creatine Kinase < 20 L (55-170) U/L CK-MB (CK-2) TNP CK-MB (CK-2) Rel Index TNP Troponin I < 0.012 (0.01-0.034) ng/mL NT-Pro-B Natriuret Pep 830 H (<450) pg/mL Total Protein 7.5 (6.3-8.2) g/dL Lipase 27 (23-300) U/L Procalcitonin (<0.5) ng/mL SARS-CoV-2 (PCR) (Negative) 08/09/22 08/09/22 08/09/22 Range/Units 16:30 19:45 19:45 WBC (4.5-11.0) X10^3/uL RBC (4.5-5.9) X10^6/uL Hgb (13.5-17.5) g/dL Hct (41-53) % MCV (80-100) fL MCH (26-34) PG MCHC (30-36) % RDW (11.6-14.8) % Plt Count (150-400) X10^3/uL Neut % (Auto) (50-75) % Lymph % (Auto) (25-40) % Greenlee % (Auto) (3-14) % Eos % (Auto) (2-4) % Baso % (Auto) (0-2) % Neut # (Auto) (9830-2509) /uL Lymph # (Auto) (1591-2144) /uL Greenlee # (Auto) (0-900) /uL Eos # (Auto) (0-450) /uL Baso # (Auto) (0-100) /uL Sodium (137-145) mmol/L Potassium (3.4-5.1) mmol/L Chloride (98-107) mmol/L Carbon Dioxide (22-32) mmol/L BUN (9-20) mg/dL Creatinine (0.66-1.25) mg/dL Estimated GFR (>60) mL/min BUN/Creatinine Ratio (6-22) Glucose (80-110) mg/dL Lactate 1.4 (0.7-2.1) mmol/L Calcium (8.4-10.2) mg/dL Magnesium (1.6-2.3) mg/dL Total Bilirubin (0.2-1.3) mg/dL AST (17-59) IU/L ALT (<50) IU/L Alkaline Phosphatase (38-126) U/L Total Creatine Kinase (55-170) U/L CK-MB (CK-2) CK-MB (CK-2) Rel Index Troponin I (0.01-0.034) ng/mL NT-Pro-B Natriuret Pep (<450) pg/mL Total Protein (6.3-8.2) g/dL Lipase (23-300) U/L Procalcitonin 0.75 H (<0.5) ng/mL SARS-CoV-2 (PCR) Negative (Negative) Urine Dip Bedside Urine Glucose Negative Bedside Urine Bilirubin - Negative Bedside Urine Ketone - Negative Urine Specific [place] 1.015 Bedside Urine Occult Blood - Negative Bedside Urine pH 6.0 Bedside Urine Protein +/- 15 Bedside Urine Urobilinogen - Negative Bedside Urine Nitrite - Negative Bedside Urine Leukocytes - Negative Esterase <Renetta Gutierrez MD - Last Filed: 08/10/22 07:34> Lab Data Labs: Lab Results 08/09/22 08/09/22 08/09/22 Range/Units 16:30 16:30 16:30 WBC 36.2 H* (4.5-11.0) X10^3/uL RBC 3.72 L (4.5-5.9) X10^6/uL Hgb 9.3 L (13.5-17.5) g/dL Hct 29.5 L (41-53) % MCV 79.4 L (80-100) fL MCH 25.1 L (26-34) PG MCHC 31.7 (30-36) % RDW 15.6 H (11.6-14.8) % Plt Count 392 (150-400) X10^3/uL Neut % (Auto) 88.7 H (50-75) % Lymph % (Auto) 3.9 L (25-40) % Greenlee % (Auto) 5.8 (3-14) % Eos % (Auto) 1.4 L (2-4) % Baso % (Auto) 0.2 (0-2) % Neut # (Auto) 49297 H (2363-0640) /uL Lymph # (Auto) 1400 (3453-4832) /uL Greenlee # (Auto) 2100 H (0-900) /uL Eos # (Auto) 500 H (0-450) /uL Baso # (Auto) 100 (0-100) /uL Sodium 132 L (137-145) mmol/L Potassium 4.8 (3.4-5.1) mmol/L Chloride 93 L (98-107) mmol/L Carbon Dioxide 27 (22-32) mmol/L BUN 34 H (9-20) mg/dL Creatinine 1.63 H (0.66-1.25) mg/dL Estimated GFR 44 L (>60) mL/min BUN/Creatinine Ratio 20.9 (6-22) Glucose 104 (80-110) mg/dL Lactate 4.7 H* (0.7-2.1) mmol/L Calcium 12.9 H* (8.4-10.2) mg/dL Magnesium 2.1 (1.6-2.3) mg/dL Total Bilirubin 1.1 (0.2-1.3) mg/dL AST 23 (17-59) IU/L ALT 22 (<50) IU/L Alkaline Phosphatase 105 (38-126) U/L Total Creatine Kinase < 20 L (55-170) U/L CK-MB (CK-2) TNP CK-MB (CK-2) Rel Index TNP Troponin I < 0.012 (0.01-0.034) ng/mL NT-Pro-B Natriuret Pep 830 H (<450) pg/mL Total Protein 7.5 (6.3-8.2) g/dL Lipase 27 (23-300) U/L Procalcitonin (<0.5) ng/mL SARS-CoV-2 (PCR) (Negative) 08/09/22 08/09/22 08/09/22 Range/Units 16:30 19:45 19:45 WBC (4.5-11.0) X10^3/uL RBC (4.5-5.9) X10^6/uL Hgb (13.5-17.5) g/dL Hct (41-53) % MCV (80-100) fL MCH (26-34) PG MCHC (30-36) % RDW (11.6-14.8) % Plt Count (150-400) X10^3/uL Neut % (Auto) (50-75) % Lymph % (Auto) (25-40) % Greenlee % (Auto) (3-14) % Eos % (Auto) (2-4) % Baso % (Auto) (0-2) % Neut # (Auto) (7693-2535) /uL Lymph # (Auto) (3794-4237) /uL Greenlee # (Auto) (0-900) /uL Eos # (Auto) (0-450) /uL Baso # (Auto) (0-100) /uL Sodium (137-145) mmol/L Potassium (3.4-5.1) mmol/L Chloride (98-107) mmol/L Carbon Dioxide (22-32) mmol/L BUN (9-20) mg/dL Creatinine (0.66-1.25) mg/dL Estimated GFR (>60) mL/min BUN/Creatinine Ratio (6-22) Glucose (80-110) mg/dL Lactate 1.4 (0.7-2.1) mmol/L Calcium (8.4-10.2) mg/dL Magnesium (1.6-2.3) mg/dL Total Bilirubin (0.2-1.3) mg/dL AST (17-59) IU/L ALT (<50) IU/L Alkaline Phosphatase (38-126) U/L Total Creatine Kinase (55-170) U/L CK-MB (CK-2) CK-MB (CK-2) Rel Index Troponin I (0.01-0.034) ng/mL NT-Pro-B Natriuret Pep (<450) pg/mL Total Protein (6.3-8.2) g/dL Lipase (23-300) U/L Procalcitonin 0.75 H (<0.5) ng/mL SARS-CoV-2 (PCR) Negative (Negative) Urine Dip Bedside Urine Glucose Negative Bedside Urine Bilirubin - Negative Bedside Urine Ketone - Negative Urine Specific [place] 1.015 Bedside Urine Occult Blood - Negative Bedside Urine pH 6.0 Bedside Urine Protein +/- 15 Bedside Urine Urobilinogen - Negative Bedside Urine Nitrite - Negative Bedside Urine Leukocytes - Negative Esterase Imaging Data CT Chest abd pelvis: Radiologist Impression: FINDINGS:? Image quality:? Motion degraded ? Lungs and pleura:? No dense consolidation.? Basal atelectasis.? Scattered areas of scarring.? No pleural effusion.? In the setting of malignancy, small pulmonary nodules can be followed on subsequent imaging, for example series 5, image 51 on the right. ? Mediastinum, heart, and esophagus:? No hiatal hernia.? No pathologic adenopathy by size criteria.? Ectatic ascending aorta.? Trace pericardial fluid.? No central p ulmonary embolism, although the segmental in segmental branches cannot be evaluated further. ? Chest wall and thyroid:? No actionable thyroid nodule identified.? Chest wall is unremarkable.? ? Solid organs:? Multiple hepatic cysts.? Subcentimeter lesions are too small to characterize, indeterminate. Distended gallbladder and cholelithiasis.? The cystic duct is also dilated.? As before, the CBD is also mildly dilated.? Prominent pancreatic duct, as before.? Small pancreatic cystic lesion is again seen at the neck.? Mild splenomegaly.? No adrenal nodules.? Nonobstructing left renal calculi.? Mild left pelviectasis.? This is more prominent than prior imaging. Right kidney is absent. ? Vessels and lymph nodes:? IVC filter in place.? The main portal vein is patent.? No abdominal aortic aneurysm.? A large mass is seen of the right pelvic sidewall, extending up the retroperitoneum along the psoas muscle, likely with vascular invasion along the IVC.? This is enlarged compared to imaging from 2021. Central areas of hypoattenuation likely represent necrosis.? On coronal images, the mass measures up to 22 cm in craniocaudal dimension.? The right pelvic major veins in arteries traversed the mass, with numerous venous collaterals around the Body wall in this region. ? Bowel and peritoneum:? No bowel obstruction.? The pelvic structures are displaced by the pelvic mass. ? Body wall:? As above. ? Pelvis:? As above.? The bladder has some hyperdense material.? There is irregular wall thickening.? Partially seen hydroceles. ? Bones:? No acute or suspicious osseous abnormality. ? ? IMPRESSION:? In the chest: No acute thoracic abnormality.? Small pulmonary nodules can be followed on subsequent imaging in the setting of malignancy.? Other findings as above. ? In the abdomen and pelvis: Locally aggressive enlarging mass centered in the right pelvis, with tumor thrombus in the IVC, and extending along the right retroperitoneum compatible with malignancy, with small areas of central necrosis.? The top of the mass is at the level of the IVC filter.? The right pelvic vessels traverse the region of the mass, with surrounding venous collaterals. ? Mild left collecting system dilation could be due to partial obstruction at the left UVJ due to the mass, which extends to the region of the bladder with irregular wall thickening.? Superimposed infection is possible. ? Distended gallbladder with gallstones and dilated cystic duct.? Consider correlation with ultrasound or HIDA scan if there are right upper quadrant concerns. ? Other indeterminate findings above to be followed on subsequent imaging. ? ? Dictated by: Will Dyer M.D. on 08/09/2022 at 19:02 ? ? ECG Data Interpretation: Sinus tachycardia at 111 Frequent PVCs Normal intervals, normal axis No acute ischemic changes MDM Narrative Medical decision making narrative: CC: Brought in by medics with hypotension, near-syncope at home with blood pressures noted to be 70 by medics. Labs earlier today indicated dramatic elevated white blood cell count with canceled planned replacement of his IVC filter. Significant worsening of known disease with significant risk for morbidity and mortality Complicating co-morbidities: Bladder cancer, presumed sepsis uncertain etiology, severe leg pain Corroborating data: Data collected from: patient, Medical records reviewed: From [facility], primary care, [facility] and [facility] Differential considered: Sepsis, bowel obstruction, worsening metastatic cancer, IVC blockage, Exam documented above, pertinent findings include: Fatigue, weakness, severe right lower quadrant/pelvis/right leg pain Lab Test results independently reviewed as above. Pertinent findings: CBC white blood cell count of 36.2 without prior diagnosis of lymphoproliferative disorders. Chronic anemia, CMP lactic acid elevated at 4.7 comes down to 1.4 with fluid resuscitation. Hypercalcemia presumably of metastatic disease, chronic renal insufficiency is stable. Procalcitonin is elevated Independently reviewed EKG as above Imaging studies independently reviewed:Locally aggressive enlarging mass centered in the right pelvis, with tumor thrombus in the IVC, and extending along the right retroperitoneum compatible with malignancy, with small areas of central necrosis.? The top of the mass is at the level of the IVC filter.? The right pelvic vessels traverse the region of the mass, with surrounding venous collaterals. Treatments: Parenteral fluids Fluids, antibiotics, pain medication, Re-evaluations: Findings of CT scan with concern for significant the invasive tumor invading into the retroperitoneum causing the severe right leg pain as well as tumor thrombus in the inferior vena cava is reviewed with patient and his . In light of these findings they are very interested in pain control, patient is exhausted mild like to sleep this evening. Did suggest that the contact family to let them know results. They both are interested in hospice consultation tomorrow but are still taking in the rapid progression of disease and findings on CT scan today. Both are quite overwhelmed. Questions are answered in detail. Discussion: Care is reviewed with Dr. Greene who is on-call for Dr. Hand this evening. Patient will be admitted to Dr. Hand service with transition orders written tonight. Will treat his hypercalcemia, continue antibiotics, fluids focused on pain control and re-evaluate further in the morning with [employer] consult, presumed hospice consult. They do have a telemedicine consult with [facility] tomorrow, we will make sure CT scan from today and recent PET scan are available to that cancer service. We did contact the use of transfer center to make sure they are aware of imaging studies being sent down. Diagnosis: Metastatic bladder cancer with invasion into retroperitoneum and inferior vena cava, Hypercalcemia of malignancy Severe cancer-related pain Sepsis, uncertain source of infection DNR/DNI, will need hospice consult Disposition: see below, along with detailed discharge instructions that have been reviewed with patient as well as indications for ED re-evaluation and additional outpatient follow up <Renetta Gutierrez MD - Last Filed: 08/10/22 07:34> Critical Care Time Critical Care Time: Yes Total Critical Care Time: 47 Attestation: Critical care time is separate from other billable procedures. There is a high probability of a significant, sudden or life-threatening deterioration that requires my full and direct attention, intervention and personal management. This critical care time includes consultation with family and other consulting doctors, review of records, and interpretation of data from labs, EKGs and imaging as well as managements of severe sepsis, new diagnosis widely metastatic cancer, DNR discussion Discharge Plan Departure Patient Disposition: Admitted As Inpatient Clinical Impression: Malignant neoplasm metastatic from bladder, Hypercalcemia, Cancer related pain Sepsis Qualifiers: Sepsis type: sepsis due to unspecified organism Sepsis acute organ dysfunction status: unspecified Qualified Code(s): A41.9 - Sepsis, unspecified organism Admit Date/Time: 08/09/22 21:47 Admit Provider: Adebayo Hand
[2022-08-09 17:31] LABS: NT-proBNP (BNP-Adult 18+) 830 pg/mL (<450); Troponin I < 0.012 ng/mL (0.01-0.034)
[2022-08-09] MEDS: LACTATED RINGERS 2,177.25 ML 725.75 ML IV (17:45)
[2022-08-09] MEDS: cefTRIAXone 2,000 MG in SODIUM CHLORIDE 0.9% 100 ML 200 MG IV (17:46)
--- NOTE | 2022-08-09 17:46 | DI.CT.S_ITS ---
PROCEDURE: CT CHEST ABD PEL W CON INDICATIONS: severe sepsis, hypotension TECHNIQUE: After the administration of intravenous contrast, 5 mm thick sections acquired from the lung apices to the symphysis. 2.5 mm thick coronal and sagittal reformats were acquired. Additional 7 mm thick coronal maximum intensity projection (MIP) reformats acquired through the lungs. Optional 10-minute delayed imaging may be performed from the kidneys to the bladder. For radiation dose reduction, the following was used: automated exposure control, adjustment of mA and/or kV according to patient size. COMPARISON: [facility], CT, CT ANGIO CHEST PE PROTOCOL, 05/10/2022, 9:46. [facility], CT, CT ANGIO ABD AORTA RUNOFF, 05/10/2022, 9:46. [facility], [place], DC PET CT FUSION SKULL 2 THIGH, 07/28/2022, 8:56. FINDINGS: Image quality: Motion degraded Lungs and pleura: No dense consolidation. Basal atelectasis. Scattered areas of scarring. No pleural effusion. In the setting of malignancy, small pulmonary nodules can be followed on subsequent imaging, for example series 5, image 51 on the right. Mediastinum, heart, and esophagus: No hiatal hernia. No pathologic adenopathy by size criteria. Ectatic ascending aorta. Trace pericardial fluid. No central pulmonary embolism, although the segmental in segmental branches cannot be evaluated further. Chest wall and thyroid: No actionable thyroid nodule identified. Chest wall is unremarkable. Solid organs: Multiple hepatic cysts. Subcentimeter lesions are too small to characterize, indeterminate. Distended gallbladder and cholelithiasis. The cystic duct is also dilated. As before, the CBD is also mildly dilated. Prominent pancreatic duct, as before. Small pancreatic cystic lesion is again seen at the neck. Mild splenomegaly. No adrenal nodules. Nonobstructing left renal calculi. Mild left pelviectasis. This is more prominent than prior imaging. Right kidney is absent. Vessels and lymph nodes: IVC filter in place. The main portal vein is patent. No abdominal aortic aneurysm. A large mass is seen of the right pelvic sidewall, extending up the retroperitoneum along the psoas muscle, likely with vascular invasion along the IVC. This is enlarged compared to imaging from 2021. Central areas of hypoattenuation likely represent necrosis. On coronal images, the mass measures up to 22 cm in craniocaudal dimension. The right pelvic major veins in arteries traversed the mass, with numerous venous collaterals around the Body wall in this region. Bowel and peritoneum: No bowel obstruction. The pelvic structures are displaced by the pelvic mass. Body wall: As above. Pelvis: As above. The bladder has some hyperdense material. There is irregular wall thickening. Partially seen hydroceles. Bones: No acute or suspicious osseous abnormality. IMPRESSION: In the chest: No acute thoracic abnormality. Small pulmonary nodules can be followed on subsequent imaging in the setting of malignancy. Other findings as above. In the abdomen and pelvis: Locally aggressive enlarging mass centered in the right pelvis, with tumor thrombus in the IVC, and extending along the right retroperitoneum compatible with malignancy, with small areas of central necrosis. The top of the mass is at the level of the IVC filter. The right pelvic vessels traverse the region of the mass, with surrounding venous collaterals. Mild left collecting system dilation could be due to partial obstruction at the left UVJ due to the mass, which extends to the region of the bladder with irregular wall thickening. Superimposed infection is possible. Distended gallbladder with gallstones and dilated cystic duct. Consider correlation with ultrasound or HIDA scan if there are right upper quadrant concerns. Other indeterminate findings above to be followed on subsequent imaging. Dictated by: Will Dyer M.D. on 08/09/2022 at 19:02 Approved by: Will Dyer M.D. on 08/09/2022 at 19:16
[2022-08-09] MEDS: HYDROMORPHONE 0.5 MG INJ IV (18:28)
[2022-08-09 18:55] LABS: Reflexed Lactate in 2 Hours Y
[2022-08-09 19:34] LABS: COVID-19 CEPHEID PCR (VTM/NP) Negative (Negative)
[2022-08-09 20:10] LABS: Lactate 2HR (Lactic Acid Rflx) 1.4 mmol/L (0.7-2.1)
[2022-08-09 20:28] LABS: Procalcitonin 0.75 ng/mL (<0.5)
[2022-08-09] MEDS: HYDROMORPHONE 1 MG INJ IV (22:03)
[2022-08-09] MEDS: SODIUM CHLORIDE 0.9% 1,000 ML 125 ML IV (23:29)
--- NOTE | 2022-08-09 23:55 | PC.NURSE ---
This pt was admitted to room 215 at 2255 from ED. He appears comfortable at this time. Denies SOB, nausea, and pain. Pt's Ca 12.9, calcitonin 300 subq that was ordered in the ED is not available. Dr. Herrera notified of Ca and med not available. I asked if we needed to call in pharmacy to obtain med. Dr. Herrera said it could wait until the morning when pharmacy gets here.
[2022-08-10 01:26] VITALS: BP 96/48; PULSE 104; RESP 18; TEMP 37; O2SAT 93
[2022-08-10] MEDS: HYDROMORPHONE 0.5 MG INJ IV ×4 (02:40→13:10)
[2022-08-10 05:42] VITALS: BP 102/56; PULSE 99; RESP 18; TEMP 36.7; O2SAT 95
[2022-08-10 06:29] LABS: Hematocrit 23.3 % (41-53); Hemoglobin 7.4 g/dL (13.5-17.5); Mean Corpuscular HGB Conc 31.7 % (30-36); Mean Corpuscular Hemoglobin 25.1 PG (26-34); Platelet Count 272 X10^3/uL (150-400); Red Blood Cell Count 2.95 X10^6/uL (4.5-5.9); Red Cell Distribution Width 15.3 % (11.6-14.8); White Blood Cell Count 26.7 X10^3/uL (4.5-11.0)
[2022-08-10 06:34] LABS: Add Manual Diff / Slide Review YES
[2022-08-10 06:42] LABS: Alanine Aminotransferase 15 IU/L (<50); Alkaline Phosphatase 77 U/L (38-126); Aspartate Aminotransferase 20 IU/L (17-59); BUN Creatinine Ratio 18.9 (6-22); Bilirubin Total 0.7 mg/dL (0.2-1.3); Blood Urea Nitrogen 31 mg/dL (9-20); Calcium 12.3 mg/dL (8.4-10.2); Carbon Dioxide 29 mmol/L (22-32); Chloride 98 mmol/L (98-107); Estimated Glomerular Filt Rate 43 mL/min (>60); Glucose 99 mg/dL (80-110); HEMOLYSIS < 15 (0-50); Potassium 4.7 mmol/L (3.4-5.1); Sodium 133 mmol/L (137-145)
[2022-08-10 07:19] LABS: Neutrophils Absolute Manual 24297 /uL (3000-5900); Total Cells Counted 100
[2022-08-10 07:20] LABS: Microcytosis 1+
[2022-08-10] MEDS: CALCITONIN,SALMON 400 UNITS/2 ML MDV 300 UNITS SUBCUT (07:25)
[2022-08-10] MEDS: SODIUM CHLORIDE 0.9% 1,000 ML 125 ML IV (07:26)
--- NOTE | 2022-08-10 08:41 | P.HP_ITS ---
History of Present Illness History of Present Illness Date Patient Seen: 08/10/22 Chief complaint: hypotensive Narrative: 77-year-old male with a history of metastatic bladder cancer venous thromboembolism hypertension kidney cancer stage 3 chronic kidney disease obstructive sleep apnea hypertension presents to the emergency department with weakness and low blood pressure. Patient was scheduled to have a procedure done at [facility] was found to have some concerning labs and was sent home. Patient was then brought into the emergency department by if the ambulance. He had a near syncopal episode at home was found by EMS to have a blood pressure in the 70s. Patient had some blood tests done earlier today which showed dramatic elevation is white blood cell count. There was concern for worsening of his underlying disease and disease progression. On review patient's laboratory tests patient had an elevated white blood cell count elevated lactic acid CT scan shows locally aggressive enlarging mass in the right pelvis area with tumor thrombus in the IVC and right retro peritoneal space. Patient in the emergency room was given IV fluids IV antibiotics. Patient had some mild improvement of his lactate. Mild improvement of his white blood cell count mild improvement of his blood pressures. Because of patient's significant weakness and poor prognosis and underlying concern for infection he was admitted to the hospital. On my evaluation this morning with the patient. He is comfortably in bed he says he is nauseated and him pain. Has had discussion with his and the patient about advanced care goals and directed and what is the best next level o f care. There agreement that they would like to proceed with hospice evaluation and comfort management. His resuscitation status is do not resuscitate. I have reviewed the CT scan findings and laboratory findings with the patient's spouse and patient himself. Patient History Medical History Acne (1961) Bladder cancer (2016) Bladder cancer BPH (benign prostatic hyperplasia) Chicken pox Complete tear of left rotator cuff (01/14/16) DVT (deep venous thrombosis) Essential hypertension (07/23/15) Hayfever (1963) History of adenomatous polyp of colon Kidney stones (2010) Malignant neoplasm of kidney (01/12/13) Measles Mumps Obstructive sleep apnea (09/07/11) Stage 3 chronic kidney disease (01/03/13) Thrombocytopenia Vertigo Surgical History Anesthesia History of nephrectomy (12/2012) S/P insertion of IVC (inferior vena caval) filter (05/14/22) Status post rotator cuff repair (2003) Status post rotator cuff repair (2012) Family & Social History Family History Father No problems noted. Mother No problems noted. Sister No problems noted. Other Hypertension Social History: household members spouse Prior Living Arrangements House lives independently Yes caregiver/support person No Safety & Behavioral: Feels Safe in Current Yes Environment Been Physically Hurt or No Threatened By a Person Tobacco & Substance use: Smoking Status Former smoker alcohol intake current alcohol intake frequency 0-2 drinks per day Substance Use Type marijuana Meds Home Medications and Allergies Home Medications Medication Instructions Recorded Confirmed Type tamsulosin 0.4 mg capsule (Flomax) 0.4 mg PO BID #0 caps 02/28/19 08/09/22 History melatonin 5 mg tablet 5 mg PO BEDTIME PRN Insomnia 09/09/20 08/09/22 History acetaminophen 500 mg tablet 500 mg PO ONCE PRN Pain (Scale 05/18/22 08/09/22 History (Tylenol Extra Strength) Score 4-6) lorazepam 1 mg tablet 0.5 - 1 mg PO TID PRN anxiety #10 07/12/22 08/09/22 Rx tabs gabapentin 300 mg capsule 300 mg PO DAILY 08/09/22 08/09/22 History nystatin 100,000 unit/mL oral 1 unit PO DIRECTED thrush 08/09/22 08/09/22 History suspension Allergies Allergy/AdvReac Type Severity Reaction Status Date / Time adhesive Allergy Mild REDNESS, Verified 08/09/22 19:04 ITCHING No Known Drug Allergies Allergy Unknown Verified 08/09/22 19:04 [NO KNOWN DRUG ALLERGIES] Raw apples AdvReac Intermediate GI upset Uncoded 07/23/22 11:17 Exam Vital Signs (past 8 hours): - 08/10/22 01:26 08/10/22 05:42 Temperature 98.6 F 98.1 F Pulse Rate 104 H 99 H Respiratory Rate 18 18 Blood Pressure 96/48 L 102/56 L Pulse Oximetry 93 95 Oxygen Flow Rate 0 Oxygen Delivery Method Room Air Oxygen Flow Rate 0 Narrative Exam Narrative: Gen.: Patient is alert answers questions appropriately he is frail appearing looking chronically weak and ill with malnourishment HEENT: Pupils equal round and reactive temples masseter muscles are shrunken in oral mucosa is dry Cardio: S1-S2 systolic murmur heard Respiratory: Lungs are clear to auscultation no wheezes or crackles normal respiratory effort. Abdomen: Soft nontender no rebound or guarding no liver spleen enlargement no appreciable hernias Extremities: Warm dry perfused Neurologic: No signs of clinical focal neurological deficits Objective Labs Result Diagrams: 08/10/22 05:34 08/10/22 05:34 Labs: Laboratory Results - last 24 hr 08/09/22 08/09/22 08/09/22 16:30 16:30 16:30 WBC 36.2 H* RBC 3.72 L Hgb 9.3 L Hct 29.5 L MCV 79.4 L MCH 25.1 L MCHC 31.7 RDW 15.6 H Plt Count 392 Neut % (Auto) 88.7 H Lymph % (Auto) 3.9 L [place] % (Auto) 5.8 Eos % (Auto) 1.4 L Baso % (Auto) 0.2 Neut # (Auto) 67862 H Lymph # (Auto) 1400 [place] # (Auto) 2100 H Eos # (Auto) 500 H Baso # (Auto) 100 Total Counted Seg Neutrophils % Band Neutrophils % Lymphocytes % (Manual) Monocytes % (Manual) Eosinophils % (Manual) Neutrophils # (Manual) RBC Morphology Microcytosis Sodium 132 L Potassium 4.8 Chloride 93 L Carbon Dioxide 27 BUN 34 H Creatinine 1.63 H Estimated GFR 44 L BUN/Creatinine Ratio 20.9 Glucose 104 Lactate 4.7 H* Calcium 12.9 H* Magnesium 2.1 Total Bilirubin 1.1 AST 23 ALT 22 Alkaline Phosphatase 105 Total Creatine Kinase < 20 L CK-MB (CK-2) TNP CK-MB (CK-2) Rel Index TNP Troponin I < 0.012 NT-Pro-B Natriuret Pep 830 H Total Protein 7.5 Lipase 27 Procalcitonin SARS-CoV-2 (PCR) 08/09/22 08/09/22 08/09/22 16:30 19:45 19:45 WBC RBC Hgb Hct MCV MCH MCHC RDW Plt Count Neut % (Auto) Lymph % (Auto) [place] % (Auto) Eos % (Auto) Baso % (Auto) Neut # (Auto) Lymph # (Auto) [place] # (Auto) Eos # (Auto) Baso # (Auto) Total Counted Seg Neutrophils % Band Neutrophils % Lymphocytes % (Manual) Monocytes % (Manual) Eosinophils % (Manual) Neutrophils # (Manual) RBC Morphology Microcytosis Sodium Potassium Chloride Carbon Dioxide BUN Creatinine Estimated GFR BUN/Creatinine Ratio Glucose Lactate 1.4 Calcium Magnesium Total Bilirubin AST ALT Alkaline Phosphatase Total Creatine Kinase CK-MB (CK-2) CK-MB (CK-2) Rel Index Troponin I NT-Pro-B Natriuret Pep Total Protein Lipase Procalcitonin 0.75 H SARS-CoV-2 (PCR) Negative 08/10/22 08/10/22 05:34 05:34 WBC 26.7 H RBC 2.95 L Hgb 7.4 L Hct 23.3 L MCV 79.0 L MCH 25.1 L MCHC 31.7 RDW 15.3 H Plt Count 272 Neut % (Auto) Not Reportable Lymph % (Auto) Not Reportable [place] % (Auto) Not Reportable Eos % (Auto) Not Reportable Baso % (Auto) Not Reportable Neut # (Auto) Lymph # (Auto) Not Reportable [place] # (Auto) Not Reportable Eos # (Auto) Baso # (Auto) Not Reportable Total Counted 100 Seg Neutrophils % 89.0 H Band Neutrophils % 2.0 L Lymphocytes % (Manual) 3.0 L Monocytes % (Manual) 2.0 Eosinophils % (Manual) 4.0 Neutrophils # (Manual) 85454 H RBC Morphology See below Microcytosis 1+ H Sodium 133 L Potassium 4.7 Chloride 98 Carbon Dioxide 29 BUN 31 H Creatinine 1.64 H Estimated GFR 43 L BUN/Creatinine Ratio 18.9 Glucose 99 Lactate Calcium 12.3 H Magnesium Total Bilirubin 0.7 AST 20 ALT 15 Alkaline Phosphatase 77 Total Creatine Kinase CK-MB (CK-2) CK-MB (CK-2) Rel Index Troponin I NT-Pro-B Natriuret Pep Total Protein 6.0 L Lipase Procalcitonin SARS-CoV-2 (PCR) Assessment & Plan Assessment and plan (1) Malignant neoplasm metastatic from bladder: Status: Acute (2) Sepsis: Qualifiers: Sepsis acute organ dysfunction status: unspecified Sepsis type: sepsis due to unspecified organism Qualified Code(s): A41.9 - Sepsis, unspecified organism Status: Acute (3) Hypercalcemia: Status: Acute (4) Urothelial carcinoma of bladder: Status: Acute (5) Bladder cancer: Qualifiers: Bladder location: unspecified site Qualified Code(s): C67.9 - Malignant neoplasm of bladder, unspecified Status: Chronic (6) Stage 3 chronic kidney disease: Status: Chronic Plan Sepsis severe. Questionable source at this point probably urological. Patient' s white blood cell counts improved. Patient's lactate is improved. Procalcitonin and mildly elevated blood pressure still low. Continue with IV fluid and IV antibiotics. Monitor white blood cell count and blood pressure. Await culture results on blood and urine. Hypercalcemia. Patient has a calcium level of 12.3. Hard to determine the extent of this as currently we do not have access to albumin I will hold off on treating his significant hypercalcemia until we can get a corrected calcium level will continue with IV fluid hydration. 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 Patient has had oncology evaluation. And has been going through this now for a number of years with surgery. And other treatments. Patient and family wishes currently at this point due to aggressive advanced disease to proceed with more comfort measures and hospice care. Hospice evaluation will be initiated here and discussion with family and patient will ensue. We will continue to provide comfort with Dilaudid and lorazepam and oral pain medication as needed with antinausea medication. Anemia. Anemia of chronic disease. No signs of acute active bleeding. Worsened by fluid that he has been given for resuscitation of his low blood pressure. Will continue to monitor and hold off on blood transfusion at this point. Venous thromboembolism. Patient has filter in place. Will continue with DVT prophylaxis at this time with Lovenox and SCDs. Chronic renal failure 3B. Patient with chronic kidney disease. BUN and creatinine is stable at this point. Thrush. Will continue with nystatin orally. Disposition and plan. Plan is continue to treat underlying sepsis with antibiotics. Moving toward more comfort management and care. Continue with IV pain medication hospice evaluation and consultation the goal is to go home with hospice Time Spent With Patient Critical Care time: I spent a total of [] minutes of critical care time on this patient's care today; this time is exclusive of procedural time. Quality VTE Deep Vein Thrombosis/Pulmonary Embolism Present on Admission: No
[2022-08-10 08:48] VITALS: BP 111/64; PULSE 103; RESP 17; TEMP 36.9; O2SAT 94
[2022-08-10] MEDS: GABAPENTIN 300 MG CAPSULE PO (09:33)
[2022-08-10] MEDS: DOCUSATE 100 MG CAPSULE PO ×2 (09:33→20:54)
[2022-08-10] MEDS: TAMSULOSIN 0.4 MG CAPSULE PO ×2 (09:33→20:55)
[2022-08-10] MEDS: LACTATED RINGERS 1,000 ML 100 ML IV ×2 (09:34→20:53)
[2022-08-10] MEDS: OXYCODONE IR 5 MG TABLET PO ×2 (10:54→20:52)
[2022-08-10] MEDS: ONDANSETRON 4 MG/2 ML INJ IV (10:55)
--- NOTE | 2022-08-10 11:28 | CM.DANOTE ---
Addendum entered by HUY Shetty 08/10/22 15:13: ADD: Call from Gracia at [facility] stating she has reviewed, will try for Info Visit with spouse this evening but might not be until the AM. Have pt on start of care list for 08/14/22 but may be able to open sooner. BF Original Note: Patient is a 77 yo male who was admitted on 08/09/22 for hypotensive. Pt has MCR and PRE DIM for insurance and his PCP is Dr. Adebayo Hand. EMR was reviewed. Per MD, pt with a hx of current bladder cancer with mets, stage 3 kidney disease. Pt had near syncopal episode and admitted for sepsis tx. Per MD, after further discussion with pt and spouse, decision to provide treatment and IV-Abx at this time but family interested in referral to Hospice after discharge and likely switch to comfort focused treatment after discharge. SW met bedside with pt and spouse and explained role and pt clearly not feeling well and states he is nauseous but they confirm that they live at home in [place] and not really any local family. They confirm they have supportive neighbors and friends but no other formal supportive services in place. SW discussed Hospice services and pt and spouse agree they are interested in a Hospice Info Visit to determine if they would be agreeable to Hospice in the near future after discharge. Provided [facility] brochure to review. SW discussed likely need of caregivers in the home at some point since no local family really and provided Senior Resource Guidebook with earmarked page for Caregiver Agencies. Spouse states they have a LTC plan and likely this will assist with coverage for in-home caregiver when needed and SW encouraged her to call a few to determine coverage and availability. JENNIFER Arita kindly faxed referral to [facility] to review and SW called and left [facility] for intake requesting review, requesting call back to determine when Info Visit can be attempted and their availability for [facility]. POLST completed in the ED showing limited interventions and JENNIFER Arita scanned into chart and SW made a copy. Spouse confirmed that pt is typically mostly independent with ambulation with walker but past couple days has needed more assist. SW discussed possible need for d/c to SNF or [facility] pending pt's progress and spouse confirms he would just hate that, he really wants home and spouse agreeable then with calling Caregiver agencies today to start planning for home at d/c and friend arrived to visit and assist. Plan: SW to follow for pt progress to determine if home will be a safe option and transportation needs of POV vs BLS pending progress as pt typically ambulatory but currently not feeling well enough to attempt mobility. SW to follow for return call from [facility] on availability for Info Visit and start of care for [place]. HUY Shetty Discharge Planning/Care Management CM Discharge Assessment Start: 08/10/22 11:19 Freq: Status: Active Protocol: Document 08/10/22 11:19 BF (Rec: 08/10/22 11:26 BF [id number]) Discharge Planning Assessment Assigned Senior Loan Processor HUY Farr DPOA/Assigned Designee Name spouse Azucena Contact Information [phone] Advance Directives? Yes Advance Directives on File Yes: DNR History Provided By Patient,Significant Other, Medical Record Has Patient been admitted in last 30 No days? Prior Living Arrangements House Household Members spouse Type of transporation used prior to Relies on Others admit Independent with ADL's Yes: mostly Is patient alert and oriented? Yes Needs Assistance With Managing Medications,Home Chores / Shopping Caregiver for Another No Barriers to Discharge No Discharge Plan Hospice Transportation Arrangement Pending pt's ambulation ability, POV vs BLS Referrals Initiated Other Additional Comment Made [facility] referral Whiteboard Updated in Patient Room with Yes name and ext. # of Senior Loan Processor Review Status In Process Please Provide Date Initial DC 08/10/22 Assessment Was Performed Next Review Type Continued Stay Review
[2022-08-10 12:00] VITALS: BP 128/63; PULSE 97; RESP 17; TEMP 36.2; O2SAT 95
[2022-08-10 16:00] VITALS: BP 98/54; PULSE 89; RESP 17; TEMP 36.7; O2SAT 94
[2022-08-10] MEDS: LORazepam 2 MG/ML INJ 1 MG IV (16:23)
[2022-08-10] MEDS: cefTRIAXone 1,000 MG in SODIUM CHLORIDE 0.9% 100 ML 200 MG IV (16:55)
[2022-08-10] MEDS: MELATONIN 3 MG TABLET 6 MG PO (20:52)
[2022-08-10 22:00] VITALS: BP 110/64; PULSE 98; RESP 18; TEMP 36.5; O2SAT 95
[2022-08-11] MEDS: LORazepam 2 MG/ML INJ 1 MG IV (01:38)
[2022-08-11] MEDS: HYDROMORPHONE 0.5 MG INJ IV ×8 (01:38→21:30)
[2022-08-11] MEDS: ONDANSETRON 4 MG/2 ML INJ IV (01:40)
[2022-08-11 01:57] VITALS: RESP 12
[2022-08-11 05:52] LABS: Add Manual Diff / Slide Review NO; Basophils Absolute Auto 100 /uL (0-100); Basophils Percent Auto 0.3 % (0-2); Eosinophils Absolute Auto 500 /uL (0-450); Eosinophils Percent Auto 2.3 % (2-4); Hematocrit 22.4 % (41-53); Hemoglobin 7.3 g/dL (13.5-17.5); Lymphocytes Absolute Auto 1100 /uL (1100-4500); Lymphocytes Percent Auto 4.8 % (25-40); Mean Corpuscular HGB Conc 32.5 % (30-36); Mean Corpuscular Hemoglobin 25.6 PG (26-34); Mean Corpuscular Volume 78.9 fL (80-100); Monocytes Absolute Auto 1400 /uL (0-900); Monocytes Percent Auto 6.2 % (3-14); Neutrophils Absolute Auto 19100 /uL (1500-7000); Neutrophils Percent Auto 86.4 % (50-75); Platelet Count 256 X10^3/uL (150-400); Red Blood Cell Count 2.84 X10^6/uL (4.5-5.9); Red Cell Distribution Width 15.3 % (11.6-14.8); White Blood Cell Count 22.1 X10^3/uL (4.5-11.0)
[2022-08-11 06:01] LABS: Alanine Aminotransferase 14 IU/L (<50); Alkaline Phosphatase 72 U/L (38-126); Aspartate Aminotransferase 18 IU/L (17-59); BUN Creatinine Ratio 22.5 (6-22); Bilirubin Total 0.5 mg/dL (0.2-1.3); Blood Urea Nitrogen 29 mg/dL (9-20); Calcium 10.8 mg/dL (8.4-10.2); Carbon Dioxide 28 mmol/L (22-32); Chloride 97 mmol/L (98-107); Estimated Glomerular Filt Rate 58 mL/min (>60); Glucose 101 mg/dL (80-110); HEMOLYSIS < 15 (0-50); Potassium 4.3 mmol/L (3.4-5.1); Sodium 132 mmol/L (137-145); Total Protein 5.9 g/dL (6.3-8.2)
[2022-08-11 08:00] VITALS: BP 103/65; PULSE 97; RESP 17; TEMP 36.6; O2SAT 93
[2022-08-11] MEDS: LACTATED RINGERS 1,000 ML 100 ML IV (08:00)
[2022-08-11] MEDS: GABAPENTIN 300 MG CAPSULE PO (08:04)
[2022-08-11] MEDS: TAMSULOSIN 0.4 MG CAPSULE PO ×2 (08:05→21:30)
[2022-08-11] MEDS: DOCUSATE 100 MG CAPSULE PO ×2 (08:05→21:30)
[2022-08-11] MEDS: ENOXAPARIN 40 MG/0.4 ML SYRINGE SUBCUT (08:05)
[2022-08-11] MEDS: OXYCODONE IR 5 MG TABLET PO ×4 (08:20→23:51)
[2022-08-11] MEDS: NYSTATIN SUSP 500,000 UNIT/5 ML UDC 1000000 UNIT PO ×2 (08:50→21:30)
--- NOTE | 2022-08-11 09:39 | CM.DPC ---
Addendum entered by Zeinab Maxwell R.N. 08/11/22 14:37: Spoke to Melani at [facility] the . She has been attempting to do a phone visit with spouse, Azucena, but unable to get through. She stated that equipment can be delivered tomorrow. Met with Azucena and niece. Let her know that patient's equipment will be delivered tomorrow, time, pending time. Hospice nurse can open on Tuesday. Let her also know that Dr. Greene most likely will discharge tomorrow, for this DC Supervisor [employer] had given him an update when he came by. Azucena stated, she does not feel that it's a safe discharge plan with him going tomorrow. Asked her the reasoning, since equipment would be delivered, and nurse can instruct her on medications at discharge here at the hospital. She feels more comfortable having the teaching by the hospice nurse when they open him. Let her know that if MD puts in discharge for tomorrow, she can appeal the discharge, but he would have to place discharge first. Called Dr. Greene and updated him that doctor chiropractic can open Tuesday, and spouse is not comfortable with him going home tomorrow, since hospice nurse will not be out until Tuesday. Dr. Greene indicated that he has enough of a medical reason to keep him another day, secondary to increase in WBC, and is still on IV ABO. Plan will be discharge on Tuesday. Left Melani a message at [facility] the to see what time that the nurse would be coming on Tuesday so this can be coordinated. Let spouse, Azucena, know that patient will need BLS transport, and can accrue a cost, and to expect a bill. Spouse indicated, she thinks that it is covered by his [employer] care insurance. This DC Supervisor [employer] just wanted her to be aware. Will see if there is a POLST form on file for patient. Addendum entered by Zeinab Maxwell R.N. 08/11/22 13:04: Met with patient's spouse, Azucena, nephew and niece in the waiting room. Discussed hospice services and what that entails. Patient is currently bed bound, is unable to ambulate. Spouse is worried about taking him home, he does not have a hospital bed, just a ahns sized bed that does not incline, and not sure she can manage. Let her know that this finished goods planner has left a message with Mary Lou at [facility] the to see if the equipment can be delivered tomorrow. Discussed plan B, alf, would be private pay. Gave her an estimate of the cost, as patient would go under private pay. She began to cry, they have been 41 years. Brought in ipad with Medicare .Gov ratings, should skilled be decided upon, and the Medicare Choice List. She will discuss with family. Let her know that Dr. Greene has deemed patient medically stable tomorrow. Reminded her and family that patient can't remain here waiting for hospice to open, she is aware, also want patient to have a safe discharge plan. She also asked about Hosp[facility] House. Called [facility], and asked if Tiffanie Walton can call this DC Supervisor [employer] back to see if there are any beds available. Patient does have terminal manager care insurance. Azucena will options with family today. Original Note: DCP Cont: Spoke to Isha at [facility]. Mary Lou is the one that would be doing the informational visit, unsure if this can be done today. Equipment would be delivered after informational visit, and as this time, unclear as to when patient can be opened to services. It is noted that spouse was given home care resources. P: DCP to continue to follow, will attempt to meet with patient and spouse today. Zeinab Maxwell, RN/Offbearer
--- NOTE | 2022-08-11 11:17 | P.PN_ITS ---
Subjective Subjective Date Patient Seen: 08/11/22 Time Patient Seen: 11:17 Interval history: Patient seen and evaluated. and family and friends at bedside. Discussed recent hospitalization laboratory tests x-ray imaging and current findings. Discussed with patient's again today as well as yesterday about care wishes and plans and goals for patient. This point due to patient's significant progression of his cancer. They would like patient to be comfortable and maximize this. They are in agreement that hospice would be the best course. They prefer patient not to go to a halfway facility. Patient is responsive to questions. Says he is comfortable. Blood pressure remains a little bit low. Afebrile. Blood counts were reviewed this morning. Exam Vital Signs (past 8 hours): - 08/11/22 08:00 Temperature 97.9 F Pulse Rate 97 H Respiratory Rate 17 Blood Pressure 103/65 Pulse Oximetry 93 Oxygen Flow Rate 0 Oxygen Delivery Method Room Air Oxygen Flow Rate 0 Narrative Exam Narrative: Gen.: Alert and arousable very ill-appearing male HEENT: Pupils reactive or mucosa is somewhat dry Cardio: S1-S2 regular rate and rhythm no murmurs appreciated. Respiratory: Normal work of breathing with decreased breath sounds at the bases Abdomen: Soft no distention Extremities: Trace edema Objective Labs Result Diagrams: 08/11/22 05:22 08/11/22 05:22 Labs: Laboratory Results - last 24 hr 08/11/22 08/11/22 05:22 05:22 WBC 22.1 H RBC 2.84 L Hgb 7.3 L Hct 22.4 L MCV 78.9 L MCH 25.6 L MCHC 32.5 RDW 15.3 H Plt Count 256 Neut % (Auto) 86.4 H Lymph % (Auto) 4.8 L Darke % (Auto) 6.2 Eos % (Auto) 2.3 Baso % (Auto) 0.3 Neut # (Auto) 90934 H Lymph # (Auto) 1100 Darke # (Auto) 1400 H Eos # (Auto) 500 H Baso # (Auto) 100 Sodium 132 L Potassium 4.3 Chloride 97 L Carbon Dioxide 28 BUN 29 H Creatinine 1.29 H Estimated GFR 58 L BUN/Creatinine Ratio 22.5 H Glucose 101 Calcium 10.8 H Total Bilirubin 0.5 AST 18 ALT 14 Alkaline Phosphatase 72 Total Protein 5.9 L [facility] Medical History Acne (1962) Bladder cancer (2017) Bladder cancer BPH (benign prostatic hyperplasia) Chicken pox Complete tear of left rotator cuff (01/14/16) DVT (deep venous thrombosis) Essential hypertension (07/23/15) Hayfever (1963) History of adenomatous polyp of colon Kidney stones (2010) Malignant neoplasm of kidney (01/12/13) Measles Mumps Obstructive sleep apnea (09/07/11) Stage 3 chronic kidney disease (01/03/13) Thrombocytopenia Vertigo Surgical History Anesthesia History of nephrectomy (12/2012) S/P insertion of IVC (inferior vena caval) filter (05/14/22) Status post rotator cuff repair (2003) Status post rotator cuff repair (2012) Family History Father No problems noted. Mother No problems noted. Sister No problems noted. 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 leisure activities: music, reading and other Smoking Status: Former smoker Tobacco: How many years used: 10 Smokeless tobacco user: other quit status: quit date established second hand exposure: No alcohol intake: current substance use type: does not use Assessment & Plan Assessment and plan (1) Sepsis: Qualifiers: Sepsis acute organ dysfunction status: unspecified Sepsis type: sepsis due to unspecified organism Qualified Code(s): A41.9 - Sepsis, unspecified organism Status: Acute (2) Malignant neoplasm metastatic from bladder: Status: Acute (3) Hypercalcemia: Status: Acute Plan Sepsis severe.? Blood cultures no growth to date. White blood cell count is decreasing. Afebrile. Continue with current antibiotics. Blood pressure still little bit low. Will go ahead and decrease IV fluids today. Patient's main to underlying concern is his metastatic cancer. As his sepsis is improved Hypercalcemia.? Calcium level decreased today. Due to national shortage we are not able to do an albumin test. I can not calculate this. Due to this significant level of malnourishment I am assuming his albumin level is low and calcium is falsely elevated. 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 Reviewed with the patient and patient's today and family at bedside their care wishes and goals. Based on the current burden of tumor amount of pain. Previous treatment and oncology evaluation which they had. They are leaning towards comfort care hospice evaluation was reached out for this patient. And will continue to work on coordinating this. They would prefer patient to go home with hospice. Anemia.? Anemia of chronic disease.? No signs of acute active bleeding.? Hemoglobin hematocrit stable. Venous thromboembolism.? Patient has filter in place.? Will continue with DVT prophylaxis at this time with Lovenox and SCDs. Chronic renal failure 3B.? Chronic not worsening maybe a little bit better due to the IV fluids. Hyponatremia. Mild. DC IV fluids today. Thrush.? Will continue with nystatin orally. Disposition and plan.? Hospice consultation social services specialist evaluation and coordination of care. Patient will be stable for discharge tomorrow Time Spent With Patient Critical Care time: I spent a total of [] minutes of critical care time on this patient's care today; this time is exclusive of procedural time. Quality VTE Deep Vein Thrombosis/Pulmonary Embolism Present on Admission: No
[2022-08-11 13:38] VITALS: BP 117/72; PULSE 95; RESP 17; TEMP 36.7; O2SAT 95
[2022-08-11] MEDS: cefTRIAXone 1,000 MG in SODIUM CHLORIDE 0.9% 100 ML 200 MG IV (17:04)
[2022-08-11 22:08] VITALS: BP 123/68; PULSE 91; RESP 16; TEMP 36.7; O2SAT 96
[2022-08-12] MEDS: HYDROMORPHONE 0.5 MG INJ IV ×8 (02:32→22:07)
[2022-08-12] MEDS: LACTATED RINGERS 1,000 ML 100 ML IV (02:34)
[2022-08-12 03:00] VITALS: BP 117/67; PULSE 106; RESP 17; TEMP 37.1; O2SAT 92
[2022-08-12] MEDS: OXYCODONE IR 5 MG TABLET PO ×2 (06:50→13:16)
--- NOTE | 2022-08-12 07:14 | P.PN_ITS ---
Subjective Subjective Date Patient Seen: 08/12/22 Interval history: Patient did well overnight stable. He says he is okay a little bit of pain. Wants to go home. at bedside. Discussed about care plans. She has lots of questions in regard to hospice. Periods bed will be available today. Patient's vital signs have been stable blood pressure is improved. No laboratory tests were done today will repeat tomorrow Exam Vital Signs (past 8 hours): - 08/12/22 03:00 Temperature 98.8 F Pulse Rate 106 H Respiratory Rate 17 Blood Pressure 117/67 Pulse Oximetry 92 Oxygen Flow Rate 0 Oxygen Delivery Method Room Air Oxygen Flow Rate 0 Narrative Exam Narrative: Gen.: Alert ill-appearing male patient somewhat sleepy HEENT: Pupils equal round and reactive or mucosa is dry Cardio: [S1-S2 regular rate and rhythm no murmurs appreciated.] Respiratory: Lungs show normal respiratory rate decreased breath sounds Abdomen: Soft nontender Extremities: Warm dry perfused Objective Labs Result Diagrams: 08/11/22 05:22 08/11/22 05:22 [facility] Medical History Acne (1961) Bladder cancer (2016) Bladder cancer BPH (benign prostatic hyperplasia) Chicken pox Complete tear of left rotator cuff (01/14/16) DVT (deep venous thrombosis) Essential hypertension (07/23/15) Hayfever (1963) History of adenomatous polyp of colon Kidney stones (2010) Malignant neoplasm of kidney (01/12/13) Measles Mumps Obstructive sleep apnea (09/07/11) Stage 3 chronic kidney disease (01/03/13) Thrombocytopenia Vertigo Surgical History Anesthesia History of nephrectomy (12/2012) S/P insertion of IVC (inferior vena caval) filter (05/14/22) Status post rotator cuff repair (2003) Status post rotator cuff repair (2012) Family History Father No problems noted. Mother No problems noted. Sister No problems noted. 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 Blood cultures no growth to date.? Improved. Blood pressure stable. Recheck white blood cell count tomorrow continue with IV antibiotics. Hypercalcemia.? Calcium level decreased today.? Due to national shortage we are not able to do an albumin test.? Will recheck a calcium tomorrow it is at a more stable level as far as the calcium goes. 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 Hospice is in the works getting arranged home. Anticipate discharge today or tomorrow. Anemia.? Anemia of chronic disease.? No signs of acute active bleeding.? Hemoglobin hematocrit stable. Venous thromboembolism.? Patient has filter in place.? Will continue with DVT prophylaxis at this time with Lovenox and SCDs. Chronic renal failure 3B.? Recheck kidney function Hyponatremia.? Mild.? DC IV fluids today. Thrush.? Will continue with nystatin orally. Disposition and plan intake separate discharge tomorrow when arrangements are made for home hospice Time Spent With Patient Critical Care time: I spent a total of [] minutes of critical care time on this patient's care today; this time is exclusive of procedural time. Quality VTE Deep Vein Thrombosis/Pulmonary Embolism Present on Admission: No
[2022-08-12 07:24] VITALS: BP 128/75; PULSE 104; RESP 18; TEMP 37.3; O2SAT 92
[2022-08-12] MEDS: TAMSULOSIN 0.4 MG CAPSULE PO ×2 (08:42→21:39)
[2022-08-12] MEDS: GABAPENTIN 300 MG CAPSULE PO (08:42)
[2022-08-12] MEDS: DOCUSATE 100 MG CAPSULE PO ×2 (08:48→21:39)
--- NOTE | 2022-08-12 08:48 | CM.DPC ---
Addendum entered by Zeinab Maxwell R.N. 08/12/22 15:32: Called Loree, triage nurse for Dr. Greene, and asked her to let him know that BLS garbage pick up man time is 0900 for home tomorrow, so he can do the orders. Will ensure that BLS paperwork is copied for scanning, and original placed near his chart. Have POLST and face sheet attached, spouse, Azucena, is aware. Original Note: DCP Cont: Called [facility] and verified that nurse will be out between 10:00-11:[address] Greene sign BLS form, have POLST attached. Called Ambulance and set up garbage pick up man for 0900 tomorrow. Spouse, Azucena, is aware, reminded her that patient most likely will be billed, as transportation is not normally covered, but she will check with her snf care insurance anyway. P: DCP to continue to follow. Plan is home tomorrow, with hospice services, garbage pick up man at 0900. Zeinab Maxwell RN/Auto Locator
[2022-08-12] MEDS: polyethylene glycoL 3350 17 GM POWD.PACK PO (10:46)
[2022-08-12] MEDS: NYSTATIN SUSP 500,000 UNIT/5 ML UDC 1000000 UNIT PO ×3 (11:00→21:39)
[2022-08-12] MEDS: cefTRIAXone 1,000 MG in SODIUM CHLORIDE 0.9% 100 ML 200 MG IV (15:25)
[2022-08-12 16:21] VITALS: TEMP 37.6
[2022-08-12 20:58] VITALS: BP 93/52; PULSE 100; RESP 15; TEMP 37.5; O2SAT 90
[2022-08-12] MEDS: MELATONIN 3 MG TABLET 6 MG PO (22:07)
[2022-08-12] MEDS: LORazepam 2 MG/ML INJ 1 MG IV (23:00)
--- NOTE | 2022-08-12 23:57 | PC.NURSE ---
Pt. continues to C/O pain even after medicated with 0.5 mg. of Dilaudid. Hes very restless trying to get OOB. He became agitated when I asked him to please stay in bed.Tried to pull out his IV., condom catheter & took off his gown Medicated with 1 mg. of Lorazepam IVP & he's sleeping right now. Will cont. POC & monitor.
[2022-08-13] MEDS: OXYCODONE IR 5 MG TABLET PO (02:23)
[2022-08-13 04:00] VITALS: BP 128/56; PULSE 100; RESP 17; TEMP 36.4; O2SAT 94
[2022-08-13 05:34] LABS: Hematocrit 23.2 % (41-53); Hemoglobin 7.2 g/dL (13.5-17.5); Mean Corpuscular HGB Conc 31.1 % (30-36); Mean Corpuscular Hemoglobin 24.9 PG (26-34); Platelet Count 265 X10^3/uL (150-400); Red Cell Distribution Width 15.2 % (11.6-14.8); White Blood Cell Count 26.3 X10^3/uL (4.5-11.0)
[2022-08-13 05:37] LABS: Add Manual Diff / Slide Review YES
[2022-08-13 05:41] LABS: Alanine Aminotransferase 13 IU/L (<50); Alkaline Phosphatase 88 U/L (38-126); Aspartate Aminotransferase 20 IU/L (17-59); BUN Creatinine Ratio 17.9 (6-22); Bilirubin Total 0.7 mg/dL (0.2-1.3); Blood Urea Nitrogen 25 mg/dL (9-20); Carbon Dioxide 30 mmol/L (22-32); Chloride 99 mmol/L (98-107); Estimated Glomerular Filt Rate 52 mL/min (>60); Glucose 107 mg/dL (80-110); HEMOLYSIS < 15 (0-50); Potassium 3.8 mmol/L (3.4-5.1); Sodium 135 mmol/L (137-145)
[2022-08-13 06:01] LABS: Calcium 13.2 mg/dL (8.4-10.2)
[2022-08-13 06:11] LABS: Neutrophils Absolute Manual 23933 /uL (3000-5900); Total Cells Counted 100
[2022-08-13 06:13] LABS: Microcytosis 1+; RBC Morphology a
--- NOTE | 2022-08-13 06:41 | PC.NURSE ---
Called java j2ee application developer doctor to report critical lab value @ [phone], via answering service but no call back receive. Will to call answering service again.
[2022-08-13 08:10] VITALS: BP 111/52; PULSE 104; RESP 18; TEMP 37; O2SAT 91
--- NOTE | 2022-08-13 08:20 | P.DS_ITS ---
History of Present Illness History of Present Illness Chief complaint: hypotensive Narrative: 77-year-old male with a history of metastatic bladder cancer venous thromboembolism hypertension kidney cancer stage 3 chronic kidney disease obstructive sleep apnea hypertension presents to the emergency department with weakness and low blood pressure. Patient was scheduled to have a procedure done at [facility] was found to have some concerning labs and was sent home. Patient was then brought into the emergency department by if the ambulance. He had a near syncopal episode at home was found by EMS to have a blood pressure in the 70s. Patient had some blood tests done earlier today which showed dramatic elevation is white blood cell count. There was concern for worsening of his underlying disease and disease progression. On review patient's laboratory tests patient had an elevated white blood cell count elevated lactic acid CT scan shows locally aggressive enlarging mass in the right pelvis area with tumor thrombus in the IVC and right retro peritoneal space. Patient in the emergency room was given IV fluids IV antibiotics. Patient had some mild improvement of his lactate. Mild improvement of his white blood cell count mild improvement of his blood pressures. Because of patient's significant weakness and poor prognosis and underlying concern for infection he was admitted to the hospital. On my evaluation this morning with the patient. He is comfortably in bed he says he is nauseated and him pain. Has had discussion with his and the patient about advanced care goals and directed and what is the best next level of care. There agreement that they would like to proceed with hospice evaluation and comfort management. His resuscitation status is do not resuscitate. I have reviewed the CT scan findings and laboratory findings with the patient's spouse and patient himself. Discharge Providers Provider Date of admission: 08/09/22 21:47 Discharge Date: 08/13/22 Primary care physician: Adebayo Hand MD Consults: 08/09/22 22:01 Consult to [facility] - [address] Judge Routine Comment: discharge planning / ? 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 Patient treated with IV fluids IV antibiotics did not need pressure support. Patient had improvement of blood pressure with IV fluids and IV antibiotics. Over the ensuing hospital days. His white blood cell decreased and then stabilized at a moderately high level blood culture results did not come back as any significant source. Hypercalcemia.? Patient had high calcium levels during the hospital stay. Patient has low protein presumed low albumin. We are unable to do a corrected calcium score because of not having this region available to tests albumin. He was given IV fluids. His calcium did improve overall. I think partly his lynsey cium is related to his low albumin. 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 Patient has had ongoing workup for this and Oncology. Due to patient's significant disease spread significant pain and complexity of this disease and patient's underlying health. The decision was made during the hospital stay with patient's and family and at bedside to progress to more comfort care and discharged home with hospice. Anemia.? Anemia of chronic disease.? Venous thromboembolism.? Patient has filter in place.? DVT prophylaxis with SCDs Chronic renal failure 3B.? Stable during hospital stay Hyponatremia.? Mild. Patient on IV fluids Thrush.? Will continue with nystatin orally. Discharged home with hospice care. Patient is quite critically ill due to his underlying cancer. Exam Vital Signs (past 8 hours): - 08/13/22 04:00 08/13/22 08:10 Temperature 97.6 F 98.6 F Pulse Rate 100 H 104 H Respiratory Rate 17 18 Blood Pressure 128/56 L 111/52 L Pulse Oximetry 94 91 Oxygen Flow Rate 0 0 Oxygen Delivery Method Room Air Oxygen Flow Rate 0 Objective Labs Result Diagrams: 08/13/22 05:08 08/13/22 05:08 Labs: Laboratory Results - last 24 hr 08/13/22 08/13/22 05:08 05:08 WBC 26.3 H RBC 2.90 L Hgb 7.2 L Hct 23.2 L MCV 80.0 MCH 24.9 L MCHC 31.1 RDW 15.2 H Plt Count 265 Neut % (Auto) Not Reportable Lymph % (Auto) Not Reportable Carver % (Auto) Not Reportable Eos % (Auto) Not Reportable Baso % (Auto) Not Reportable Lymph # (Auto) Not Reportable Carver # (Auto) Not Reportable Baso # (Auto) Not Reportable Total Counted 100 Seg Neutrophils % 91.0 H Lymphocytes % (Manual) 3.0 L Monocytes % (Manual) 5.0 Eosinophils % (Manual) 1.0 L Neutrophils # (Manual) 93997 H RBC Morphology a Microcytosis 1+ H Sodium 135 L Potassium 3.8 Chloride 99 Carbon Dioxide 30 BUN 25 H Creatinine 1.40 H Estimated GFR 52 L BUN/Creatinine Ratio 17.9 Glucose 107 Calcium 13.2 H* Total Bilirubin 0.7 AST 20 ALT 13 Alkaline Phosphatase 88 Total Protein 6.0 L PFSH Medical History Acne (1961) Bladder cancer (2016) Bladder cancer BPH (benign prostatic hyperplasia) Chicken pox Complete tear of left rotator cuff (01/14/16) DVT (deep venous thrombosis) Essential hypertension (07/23/15) Hayfever (1963) History of adenomatous polyp of colon Kidney stones (2010) Malignant neoplasm of kidney (01/12/13) Measles Mumps Obstructive sleep apnea (09/07/11) Stage 3 chronic kidney disease (01/03/13) Thrombocytopenia Vertigo Surgical History Anesthesia History of nephrectomy (12/2012) S/P insertion of IVC (inferior vena caval) filter (05/14/22) Status post rotator cuff repair (2003) Status post rotator cuff repair (2012) Family History Father No problems noted. Mother No problems noted. Sister No problems noted. 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 leisure activities: music, reading and other Smoking Status: Former smoker Tobacco: How many years used: 10 Smokeless tobacco user: other quit status: quit date established second hand exposure: No alcohol intake: current substance use type: does not use Discharge Plan Discharge Plan Patient Disposition: Home Discharge orders & Medications Prescriptions: New oxycodone 5 mg/5 mL solution 5 mg PO Q6H PRN (Reason: pain) Qty: 150 0RF lorazepam [Lorazepam Intensol] 2 mg/mL concentrate 1 mg PO BID PRN (Reason: anxiety) Qty: 10 0RF Continued tamsulosin [Flomax] 0.4 mg capsule 0.4 mg PO BID Qty: 0 melatonin 5 mg tablet 5 mg PO BEDTIME PRN (Reason: Insomnia) acetaminophen [Tylenol Extra Strength] 500 mg tablet 500 mg PO ONCE PRN (Reason: Pain (Scale Score 4-6)) gabapentin 300 mg capsule 300 mg PO DAILY nystatin 100,000 unit/mL suspension 1 unit PO DIRECTED Discontinued lorazepam 1 mg tablet 0.5 - 1 mg PO TID PRN (Reason: anxiety) Qty: 10 0RF Follow up/Referrals: Adebayo Hand MD [Primary Care Provider] - Visit Report/Discharge Packet Stand Alone Forms: Patient Portal/API, Stroke Signs & Symptoms Discharge Data Primary Care Provider: Adebayo Hand Quality VTE Deep Vein Thrombosis/Pulmonary Embolism Present on Admission: No
[2022-08-13] MEDS: MORPHINE 10 MG/0.5 ML ORAL SYRINGE PO (08:45)
--- NOTE | 2022-08-13 10:22 | PC.NURSE ---
Plan today is home with Hospice via BLS at 09:00Pt and agreeable with plan and getting ready for the transfer home. Pt changed, washed and readied for transfer. MS oral given per orders. going ahead of Pt to get house ready and taking belongings. Bls here and transfer complete report given and Pt now in the care of ambulance team.
[2022-08-13 15:52] LABS: Albumin 3.3 g/dL (3.5-5.0); Albumin Globulin Ratio 0.8 (1.0-2.8); Globulin 4.2 g/dL (1.7-4.1)
[2022-08-13 16:07] LABS: Albumin 2.5 g/dL (3.5-5.0); Albumin Globulin Ratio 0.7 (1.0-2.8); Globulin 3.5 g/dL (1.7-4.1)
[2022-08-13 16:42] LABS: Albumin 2.5 g/dL (3.5-5.0); Albumin Globulin Ratio 0.7 (1.0-2.8); Globulin 3.5 g/dL (1.7-4.1)
[2022-08-13 16:51] LABS: Albumin 2.4 g/dL (3.5-5.0); Albumin Globulin Ratio 0.7 (1.0-2.8); Globulin 3.5 g/dL (1.7-4.1)
== END 2022-08-13 09:40 | disposition hospice, home (50) | DRG 872 ==
LOC: ED 19:37 → AC 21:47
PROVIDERS: Emergency Medicine; Family Medicine; Admitting Provider Internal Medicine; Emergency Provider Emergency Medicine; Family Provider Internal Medicine; PCP Internal Medicine; Referring Provider Emergency Medicine; Visit Provider Internal Medicine
DX: A41.9 Sepsis, unspecified organism (principal); I82.5Y1 Chronic embolism and thrombosis of unspecified deep veins of right proximal lower extremity; C67.9 Malignant neoplasm of bladder, unspecified; E83.52 Hypercalcemia; D63.1 Anemia in chronic kidney disease; N18.32 Chronic kidney disease, stage 3b; B37.9 Candidiasis, unspecified; R65.20 Severe sepsis without septic shock; N40.0 Benign prostatic hyperplasia without lower urinary tract symptoms; Z87.891 Personal history of nicotine dependence; Z20.822 Contact with and (suspected) exposure to COVID-19; Z51.5 Encounter for palliative care; Z95.818 Presence of other cardiac implants and grafts
CPT/HCPCS: 36415; 71260; 74177; 80053; 81003; 82550; 83605; 83690; 83735; 83880; 84145; 84484; 85007; 85025; 87040; 93005; 96365; 96375; 96376; 99284; 99291; U0003; U0005; J0630; J0696; J1170; J1650; J2060; J2405; Q9967